=== PATIENT | female | born 1935 | race Caucasian/White ===

== ENCOUNTER 2017-05-31 20:30 | Emergency (ER) | payer MEDICARE, OTHER ==
[2017-05-31 21:47] LABS: Mean Corpuscular Hemoglobin 28.6 pg (26-32); Platelet Count 392 K/mm3 (150-450); Red Blood Count 3.39 M/mm3 (4.1-5.4); Red Cell Distribution Width 15.5 % (11.5-14.0)
[2017-05-31 22:02] LABS: ANION GAP 15.8 MEQ/L (5-15); Carbon Dioxide 23.2 mEq/L (21-32); Potassium 4.6 mEq/L (3.5-5.1)
[2017-05-31 22:04] VITALS: PULSE 100; O2SAT 99
[2017-05-31 22:08] LABS: Platelet Estimate NORMAL (NORMAL); Total Cells Counted 100
[2017-05-31 22:13] LABS: Hypochromia 1+
[2017-05-31 22:14] LABS: ANISOCYTOSIS 1+
[2017-05-31 23:02] LABS: Collection Type CLEAN CATCH; Leukocyte Esterase NEGATIVE (NEGATIVE)
[2017-05-31 23:03] LABS: ADD URINE CULTURE? NO (NO); Bilirubin NEGATIVE (NEGATIVE); Blood NEGATIVE Ery/ul (0-5); COMPLETE URINE MICROSCOPIC? YES; Epithelial Cells RARE /HPF (FEW); Glucose 1000 mg/dL (NEGATIVE); Yeast RARE /HPF (NEGATIVE)
--- NOTE | 2017-05-31 23:07 | ERPHSYRPT ---
- History of Present Illness Time Seen by Provider: 05/31/17 21:30 Source: patient Exam Limitations: clinical condition Patient Subjective Stated Complaint: pt states she had a blood sugar of 400 at home. states she had a steriod injection to her lt knee today with dr bonilla Triage Nursing Assessment: pt alert and oriented, answers questions approp. pt very [place]. pt ambultory with rolling walker. slin pink warm and dry. respirations nonlabored with lungs cta. Physician History: PATIENT WITH A HISTORY OF TYPE 2 DIABETES, CORONARY ARTERY DISEASE, AND HYPERTENSION, UNDER WENT A STEROID INJECTION TO HER LEFT KNEE TODAY AND COMPLAINS OF ELEVETED BLOOD SUGAR 466. DENIES NAUSEA, EMESIS, DIARRHEA, CHEST PAIN OR DYSPNEA. Timing/Duration: today Associated Symptoms: denies symptoms Allergies/Adverse Reactions: dicyclomine [Dicyclomine] Allergy (Intermediate, Verified 12/14/15 01:23) NAUSEA, STOMACH PAIN Sulfa (Sulfonamide Antibiotics) [Sulfa(Sulfonamide Antibiotics)] Allergy ( Unknown, Verified 12/14/15 01:23) Wdpnrad-Ihe-Oah Reductase Inhibitor Allergy (Verified 12/14/15 01:23) Home Medications: Amitriptyline HCl 25 mg [Elavil 25 mg] 25 mg PO HS 12/28/11 [History] Diltiazem HCl 300 mg [Cardizem CD 300 MG] 300 mg PO DAILY 12/28/11 [ History] Glimepiride 2 mg [Amaryl 2 MG] 2 mg PO DAILY 12/28/11 [History] Isosorbide Mononitrate [Imdur] 120 mg PO DAILY 12/28/11 [History] Loratadine 10 mg [Claritin 10 mg] 10 mg PO DAILY 12/28/11 [History] Multivitamin [Multiple Vitamins Daily] 1 tab PO DAILY 12/28/11 [History] Nitroglycerin 0.4 mg Tablet [Nitrostat 0.4 MG Tablet] 0.4 mg SL UD [History] [place]-3 Fatty Acids/Fish Oil [Fish Oil 1,000 mg Capsule] 1,000 mg PO DAILY 12/28/11 [History] Vits A,C,E/Lutein/Minerals [I-Maria R Tablet] 1 each PO DAILY 12/28/11 [History] Aspirin EC 81 mg [Ecotrin 81 mg] 81 tab PO UD 09/09/12 [History] Calcium Carbonate/Vitamin D3 [Calcium 600-Vit D3 200 Tablet] 600 tab PO BID [History] Cranberry Fruit [Cranberry] 450 cap PO DAILY 09/09/12 [History] Cyanocobalamin (Vitamin B-12) [Vitamin B-12] 1,000 tab PO DAILY 09/09/12 [ History] Docusate Sodium [Colace] 50 cap PO DAILY 09/09/12 [History] Esomeprazole Magnesium [Nexium] 40 cap PO DAILY 09/09/12 [History] Green Tea Extract [Green Tea-70] 500 cap PO BID 09/09/12 [History] Nitroglycerin [Nitrolingual] 1 spray SL UD PRN 09/09/12 [History] Plant Stanol Hannah [Cholest Off] 450 tab PO BID 09/09/12 [History] Estradiol [Estrace] 42.5 gm VG UD 06/06/13 [History] Mirabegron [Myrbetriq] 50 mg PO DAILY 06/01/14 [History] Metoprolol Tartrate 25 mg [Lopressor 25MG Tab] 25 mg PO BID 12/14/15 [ History] Hx Tetanus, Diphtheria Vaccination/Date Given: No Hx Influenza Vaccination/Date Given: Yes Hx Pneumococcal Vaccination/Date Given: No Immunizations Up to Date: Yes - Review of Systems Constitutional: No Fever, No Chills Eyes: No Symptoms Ears, Nose, & Throat: No Symptoms Respiratory: No Symptoms, No Cough, No Dyspnea Cardiac: No Symptoms, No Chest Pain, No Edema, No Syncope Abdominal/Gastrointestinal: No Symptoms, No Abdominal Pain, No Nausea, No Vomiting, No Diarrhea Genitourinary Symptoms: No Symptoms, No Dysuria Musculoskeletal: No Symptoms, No Back Pain, No Neck Pain Skin: No Rash Neurological: No Dizziness, No Focal Weakness, No Sensory Changes Psychological: No Symptoms Endocrine: No Symptoms All Other Systems: Reviewed and Negative - Past Medical History Pertinent Past Medical History: Yes Neurological History: No Pertinent History ENT History: Cataracts, Macular Degeneration Cardiac History: Angina, High Cholesterol Respiratory History: No Pertinent History Endocrine Medical History: Diabetes Type II Musculoskeletal History: Other GI Medical History: Irritable Bowel History: No Pertinent History Psycho-Social History: Depression Female Reproductive Disorders: No Pertinent History Other Medical History: hearing loss wears hearing aides, rib fx - Past Surgical History Past Surgical History: Yes Neuro Surgical History: No Pertinent History Cardiac: No Pertinent History Respiratory: No Pertinent History Gastrointestinal: Cholecystectomy, Exploratory Laparoscopy Genitourinary: No Pertinent History Musculoskeletal: Orthopedic Surgery, Other Female Surgical History: Tubal Ligation Other Surgical History: Surgery to left pinky finger-russ insertion. bladder tie up, hx of L hip fx repair - Social History Smoking Status: Never smoker Exposure to second hand smoke: No Drug Use: none Patient Lives Alone: Yes Significant Family History: no pertinent family hx - Female History Hx Now: No - Nursing Vital Signs Nursing Vital Signs: Initial Vital Signs Temperature 98.0 F 05/31/17 21:01 Pulse Rate 108 H 05/31/17 21:01 Respiratory Rate 18 05/31/17 21:01 Blood Pressure 134/89 05/31/17 21:01 O2 Sat by Pulse Oximetry 98 05/31/17 21:01 Pain Scale Pain Intensity 0 - Physical Exam General Appearance: no apparent distress, alert Eye Exam: PERRL/EOMI, eyes nml inspection Ears, Nose, Throat Exam: normal ENT inspection, TMs normal, pharynx normal, moist mucous membranes Neck Exam: normal inspection, non-tender, supple, full range of motion Respiratory Exam: normal breath sounds, lungs clear, No respiratory distress Cardiovascular Exam: regular rate/rhythm, normal heart sounds, normal peripheral pulses Gastrointestinal/Abdomen Exam: soft, normal bowel sounds, No tenderness, No mass Back Exam: normal inspection, normal range of motion, No CVA tenderness, No vertebral tenderness Extremity Exam: normal inspection, normal range of motion, pelvis stable, other (LEFT HIP LATERAL ASPECT SANTI INTACT PREVIOUS HIP SURGERY) Neurologic Exam: alert, oriented x 3, cooperative, normal mood/affect, nml cerebellar function, nml station & gait, sensation nml, No motor deficits Skin Exam: normal color, warm, dry, No rash Lymphatic Exam: No adenopathy SpO2: 99 Oxygen Delivery: Room Air Ordered Tests: Active Orders 24 hr Category Date Time Status ACCUCHECK [Accucheck] STAT Care 05/31/17 21:02 Active BMP Stat Lab 05/31/17 21:44 Completed CBC W DIFF Stat Lab 05/31/17 21:44 Completed Manual Differential NC Stat Lab 05/31/17 21:44 Completed UA W/RFX UR CULTURE Stat Lab 05/31/17 22:52 Received Lab/Rad Data: Laboratory Result Diagrams 05/31/17 21:44 05/31/17 21:44 Laboratory Results 05/31/17 05/31/17 Range/Units 21:44 21:44 WBC 3.0 L (4.0-10.5) K/mm3 RBC 3.39 L (4.1-5.4) M/mm3 Hgb 9.7 L (12.0-16.0) gm/dl Hct 31.2 L (35-47) % MCV 92.0 (78-100) fl MCH 28.6 (26-32) pg MCHC 31.1 L (32-36) g/dl RDW 15.5 H (11.5-14.0) % Plt Count 392 (150-450) K/mm3 MPV 9.0 (6-9.5) fl Segmented Neutrophils 74 H (36.0-66.0) % Lymphocytes (Manual) 25 (24-44) % Monocytes (Manual) 1 (0.0-12.0) % Differential Comment ABNORMAL Platelet Estimate NORMAL (NORMAL) Hypochromasia 1+ Anisocytosis 1+ Sodium 135 L (136-145) mEq/L Potassium 4.6 (3.5-5.1) mEq/L Chloride 101 (98-107) mEq/L Carbon Dioxide 23.2 (21-32) mEq/L Anion Gap 15.8 H (5-15) MEQ/L BUN 22 H (9-20) mg/dL Creatinine 1.04 (0.55-1.30) mg/dl Estimated GFR 54 ML/MIN Glucose 256 H (70-110) MG/DL Calcium 8.8 (8.5-10.1) mg/dL - Progress Progress Note: 05/31/17 23:07 ACCUCHECK 266 UPON ARRIVAL Counseled pt/family regarding: lab results, diagnosis, need for follow-up - Departure Time of Disposition: 23:10 Departure Disposition: Home Clinical Impression: HYPERGLYCEMIA Condition: Stable Critical Care Time: No Referrals: TONI HARRIS [Primary Care Provider] - Additional Instructions: CONTINUE ALL CURRENT MEDICATIONS. FOLLOWUP WITH YOUR PRIMARY CARE PHYSICIAN THIS WEEK. CONTINUE BLOOD GLUCOSE CHECK NEEDED.
[2017-05-31 23:30] VITALS: BP 144/78
== END 2017-05-31 23:31 | disposition home or self-care (01) ==
LOC: ED 20:30
DX: R73.9 Hyperglycemia, unspecified (principal); I25.10 Atherosclerotic heart disease of native coronary artery without angina pectoris; I10 Essential (primary) hypertension; Z79.899 Other long term (current) drug therapy; Z79.84 Long term (current) use of oral hypoglycemic drugs
CPT/HCPCS: 36415; 80048; 81000; 82962; 85025; 99283

== ENCOUNTER 2019-07-29 15:11 | Observation (INO) | payer MEDICARE ==
[2019-07-29] MEDS ORDERED: Cardizem IV 50 MG/10 ML IV SCH (15:30)
[2019-07-29] MEDS ORDERED: CARDIZEM DRIP 100 MG/100 ML D5W 100 ML IV SCH (15:45)
--- NOTE | 2019-07-29 16:18 | XRAY ---
Indication: Atrial fibrillation. Comparison: 2017. Portable chest remains hyperinflated. No focal infiltrate, consolidation, or large effusion. Heart is within normal limits for AP portable technique. Bony thorax intact again with mild osteopenia and degenerative changes. Impression: Nonacute hyperinflated chest.
[2019-07-29] MEDS ORDERED: Sodium Chloride 0.9% 1000 ML 1,000 ML ONE (16:26)
[2019-07-29 16:41] LABS: Hematocrit 36.3 % (35-47); Hemoglobin 11.7 gm/dl (12.0-16.0); Mean Cell Volume 95.5 fl (78-100); Mean Corpuscular Hemoglobin 30.8 pg (26-32); Mean Corpuscular Hgb Concent. 32.2 g/dl (32-36); Mean Platelet Volume 10.9 fl (7.5-11.0); Platelet Count 249 K/mm3 (150-450); Red Cell Distribution Width 14.5 % (11.5-14.0); White Blood Count 7.8 K/mm3 (4.0-10.5)
[2019-07-29 17:22] LABS: ALBUMIN 4.4 g/dL (3.5-5.0); ALKALINE PHOSPHATASE 54 U/L (38-126); ANION GAP 17.7 MEQ/L (5-15); BLOOD UREA NITROGEN 41 mg/dL (7-17); CHLORIDE 94 mmol/L (98-107); Calcium 9.8 mg/dL (8.4-10.2); Carbon Dioxide 29 mmol/L (22-30); Creatinine 1 0.98 mg/dL (0.52-1.04); Glucose 371 mg/dL (74-106); Potassium 4.3 mmol/L (3.5-5.1); SGOT/AST 22 U/L (14-36); SGPT/ALT 18 U/L (0-35); SODIUM 137 mmol/L (137-145); TROPONIN < 0.012 ng/mL (0.000-0.034); TSH, 3RD Generation 0.853 mIU/L (0.47-4.68); Total Protein 7.7 g/dL (6.3-8.2)
[2019-07-29 18:17] LABS: Appearance CLEAR (CLEAR); Bilirubin NEGATIVE (NEGATIVE); Blood NEGATIVE Ery/ul (0-5); Glucose >=500 mg/dL (NEGATIVE); Ketones NEGATIVE (NEGATIVE); Leukocyte Esterase NEGATIVE (NEGATIVE); Mucus SLIGHT /HPF (NEGATIVE); Nitrite NEGATIVE (NEGATIVE); Protein,Urine Dip NEGATIVE (Negative); Specific Gravity 1.006 (1.005-1.025); Urobilinogen NEGATIVE mg/dL (0-1)
[2019-07-29] MEDS ORDERED: Glucophage 500 MG PO ONE (18:41)
[2019-07-29] MEDS ORDERED: Amaryl 2 MG PO ONE (18:41)
[2019-07-29] MEDS ORDERED: Sodium Chloride 0.9% 1000 ML 1,000 ML IV SCH (18:45)
[2019-07-29] MEDS: TYLENOL 325 MG PO PRN (21:20)
[2019-07-29] MEDS: XARELTO 10 MG TABLET PO SCH (21:20)
[2019-07-29] MEDS: Lopressor 50 MG PO SCH (21:21)
[2019-07-29] MEDS ORDERED: XARELTO 10 MG TABLET PO SCH (22:00)
[2019-07-30] MEDS ORDERED: NEURONTIN 300 MG PO ONE (00:38)
[2019-07-30] MEDS ORDERED: Nitrostat 0.4 MG Tablet SL PRN (08:31)
[2019-07-30] MEDS: Glucophage 500 MG PO SCH ×2 (09:03→17:28)
[2019-07-30] MEDS: Amaryl 2 MG PO SCH ×2 (09:04→17:28)
[2019-07-30 09:23] LABS: ANION GAP 9.6 MEQ/L (5-15); BLOOD UREA NITROGEN 36 mg/dL (7-17); CHLORIDE 100 mmol/L (98-107); Calcium 9.1 mg/dL (8.4-10.2); Carbon Dioxide 33 mmol/L (22-30); Creatinine 1 0.93 mg/dL (0.52-1.04); Glucose 163 mg/dL (74-106); Potassium 4.3 mmol/L (3.5-5.1); SODIUM 138 mmol/L (137-145)
--- NOTE | 2019-07-30 09:27 | XRAY ---
Indication: Right leg tenderness and edema. Two-dimensional sonogram and color Doppler imaging of the major venous vessels of the right leg was performed. Comparison: None No thrombus seen in the examined deep venous vessels of the right leg including greater saphenous vein. Veins demonstrate normal compressibility. Venous waveforms are normal with and without augmentation. Impression: Right leg negative for DVT.
[2019-07-30 09:35] LABS: Absolute Neutrophil Ct (ANC) 4.12 (1.4-6.9); BASOPHIL % 0.8 % (0.0-0.4); Basophil (Absolute #) 0.05 (0-0.4); Eosinophil % 3.7 % (0.00-5.0); Eosinophil (Absolute #) 0.24 (0-0.5); Hemoglobin 11.2 gm/dl (12.0-16.0); Lymphocyte (Absolute #) 1.68 (1.0-4.6); Lymphocytes % 25.6 % (24.0-44.0); Mean Cell Volume 96.2 fl (78-100); Mean Corpuscular Hemoglobin 30.8 pg (26-32); Mean Platelet Volume 10.6 fl (7.5-11.0); Monocyte (Absolute #) 0.48 (0.0-1.3); Monocytes % 7.3 % (0.0-12.0); Neutrophil % 62.6 % (36.0-66.0); Platelet Count 237 K/mm3 (150-450); Red Blood Count 3.64 M/mm3 (4.1-5.4); Red Cell Distribution Width 14.7 % (11.5-14.0); White Blood Count 6.6 K/mm3 (4.0-10.5)
[2019-07-30] MEDS ORDERED: NON-FORMULARY ITEM (Dicyclomine Hcl [Dicyclomine Hcl] 10 MG) PO SCH (10:00)
[2019-07-30] MEDS ORDERED: XARELTO 10 MG TABLET PO SCH (10:00)
[2019-07-30] MEDS ORDERED: Lasix 40 MG PO SCH (10:00)
[2019-07-30] MEDS ORDERED: NON-FORMULARY ITEM (Buspirone Hcl [Buspar] 10 MG) PO SCH (10:00)
[2019-07-30] MEDS ORDERED: BENTYL 20 MG PO SCH (10:00)
[2019-07-30] MEDS: Zestril 5 MG PO SCH (10:09)
[2019-07-30] MEDS: MAG-OX 400 PO SCH (10:09)
[2019-07-30] MEDS: BUSPAR 5 MG PO SCH (10:09)
[2019-07-30] MEDS: Lopressor 50 MG PO SCH (10:10)
[2019-07-30] MEDS: CLARITIN 10 MG PO SCH (10:10)
[2019-07-30] MEDS: Klor Con 10 MEQ PO SCH (10:10)
--- NOTE | 2019-07-30 11:53 | PCM.DS ---
Discharge Summary Date of Admission: 07/29/19 15:13 Date of Discharge: 07/30/19 Admitting Physician: VERONICA PINEDO MD Consults: Discussed case with Dr Randolph Primary Care Provider: TONI HARRIS Allergies Allergies dicyclomine [Dicyclomine] Allergy (Intermediate, Verified 12/14/15 01:23) NAUSEA, STOMACH PAIN Sulfa (Sulfonamide Antibiotics) [Sulfa(Sulfonamide Antibiotics)] Allergy ( Unknown, Verified 12/14/15 01:23) Vwukupx-Yas-Yya Reductase Inhibitor Allergy (Verified 12/14/15 01:23) Hospital Summary - Hospital Course Hospital Course: 84 yr old female directly admitted to hospital from clinic because of afib with RVR. Patient was being seen in clinic for routine follow up for diabetes htn and lower leg swelling. Patient was admitted to ICU so she could be started on cardizem drip to help control her rate. 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 Patient's lopressor was increased and patient was continued on cardizem drip for about 4-5 hours. Patient also had labs done and cxr to evaluate for potential cause of afib with RVR. Patient's was started on cardizem and when rate was wnl cardizem was discontinued. Patient did have some neuropathic pain she was complaining of overnight so she was started on gabapentin which appeared to help. Patient was complaining of R lower extremity pain this am so US for dvt was ordered which was neg. - Vitals & Intake/Output Vital Signs: Vital Signs Temperature 97.9 F 07/30/19 08:00 Pulse Rate 63 07/30/19 08:00 Respiratory Rate 14 07/30/19 08:00 Blood Pressure 115/60 07/30/19 08:00 O2 Sat by Pulse Oximetry 95 07/30/19 08:00 Intake & Output: Intake & Output 07/27/19 07/28/19 07/29/19 07/30/19 11:59 11:59 11:59 11:59 Intake Total 1830 Balance 1830 Weight 72.2 kg - Lab Result Diagrams: 07/30/19 09:03 07/30/19 09:03 Lab Results-Last 24 Hrs: Accuchecks Accucheck Value: 131 Accucheck Value: 272 Lab Results-Last 24 Hours 07/29/19 07/29/19 07/29/19 Range/Units 16:20 16:20 18:15 WBC 7.8 (4.0-10.5) K/mm3 RBC 3.80 L (4.1-5.4) M/mm3 Hgb 11.7 L (12.0-16.0) gm/dl Hct 36.3 (35-47) % MCV 95.5 (78-100) fl MCH 30.8 (26-32) pg MCHC 32.2 (32-36) g/dl RDW 14.5 H (11.5-14.0) % Plt Count 249 (150-450) K/mm3 MPV 10.9 (7.5-11.0) fl Gran % (36.0-66.0) % Eos # (Auto) (0-0.5) Absolute Lymphs (auto) (1.0-4.6) Absolute Monos (auto) (0.0-1.3) Lymphocytes % (24.0-44.0) % Monocytes % (0.0-12.0) % Eosinophils % (0.00-5.0) % Basophils % (0.0-0.4) % Absolute Granulocytes (1.4-6.9) Basophils # (0-0.4) Sodium 137 (137-145) mmol/L Potassium 4.3 (3.5-5.1) mmol/L Chloride 94 L (98-107) mmol/L Carbon Dioxide 29 (22-30) mmol/L Anion Gap 17.7 H (5-15) MEQ/L BUN 41 H (7-17) mg/dL Creatinine 0.98 (0.52-1.04) mg/dL Estimated GFR 57.5 ML/MIN Glucose 371 H (74-106) mg/dL Hemoglobin A1c (4.5-6.0) % Calcium 9.8 (8.4-10.2) mg/dL Magnesium 2.0 (1.6-2.3) mg/dL Total Bilirubin 0.40 (0.2-1.3) mg/dL AST 22 (14-36) U/L ALT 18 (0-35) U/L Alkaline Phosphatase 54 (38-126) U/L Troponin I < 0.012 (0.000-0.034) ng/mL NT-Pro-B Natriuret Pep (0-1800) pg/mL Serum Total Protein 7.7 (6.3-8.2) g/dL Albumin 4.4 (3.5-5.0) g/dL TSH 3rd Generation 0.853 (0.47-4.68) mIU/L Urine Color YELLOW (YELLOW) Urine Appearance CLEAR (CLEAR) Urine pH 7.0 (5-6) Ur Specific [place] 1.006 (1.005-1.025) Urine Protein NEGATIVE (Negative) Urine Ketones NEGATIVE (NEGATIVE) Urine Blood NEGATIVE (0-5) Jayme/ul Urine Nitrite NEGATIVE (NEGATIVE) Urine Bilirubin NEGATIVE (NEGATIVE) Urine Urobilinogen NEGATIVE (0-1) mg/dL Ur Leukocyte Esterase NEGATIVE (NEGATIVE) Urine WBC (Auto) 3-5 (0-5) /HPF Urine RBC (Auto) NONE (0-2) /HPF U Epithel Cells (Auto) NONE (FEW) /HPF Urine Bacteria (Auto) NONE (NEGATIVE) /HPF Urine Mucus (Auto) SLIGHT (NEGATIVE) /HPF Urine Culture Reflexed ORDERED SEPARATELY (NO) Urine Glucose >=500 (NEGATIVE) mg/dL 07/29/19 07/29/19 07/29/19 Range/Units 22:58 Unknown Unknown WBC (4.0-10.5) K/mm3 RBC (4.1-5.4) M/mm3 Hgb (12.0-16.0) gm/dl Hct (35-47) % MCV (78-100) fl MCH (26-32) pg MCHC (32-36) g/dl RDW (11.5-14.0) % Plt Count (150-450) K/mm3 MPV (7.5-11.0) fl Gran % (36.0-66.0) % Eos # (Auto) (0-0.5) Absolute Lymphs (auto) (1.0-4.6) Absolute Monos (auto) (0.0-1.3) Lymphocytes % (24.0-44.0) % Monocytes % (0.0-12.0) % Eosinophils % (0.00-5.0) % Basophils % (0.0-0.4) % Absolute Granulocytes (1.4-6.9) Basophils # (0-0.4) Sodium (137-145) mmol/L Potassium (3.5-5.1) mmol/L Chloride (98-107) mmol/L Carbon Dioxide (22-30) mmol/L Anion Gap (5-15) MEQ/L BUN (7-17) mg/dL Creatinine (0.52-1.04) mg/dL Estimated GFR ML/MIN Glucose (74-106) mg/dL Hemoglobin A1c 9.74 H (4.5-6.0) % Calcium (8.4-10.2) mg/dL Magnesium (1.6-2.3) mg/dL Total Bilirubin (0.2-1.3) mg/dL AST (14-36) U/L ALT (0-35) U/L Alkaline Phosphatase (38-126) U/L Troponin I < 0.012 (0.000-0.034) ng/mL NT-Pro-B Natriuret Pep 1110 (0-1800) pg/mL Serum Total Protein (6.3-8.2) g/dL Albumin (3.5-5.0) g/dL TSH 3rd Generation (0.47-4.68) mIU/L Urine Color (YELLOW) Urine Appearance (CLEAR) Urine pH (5-6) Ur Specific [place] (1.005-1.025) Urine Protein (Negative) Urine Ketones (NEGATIVE) Urine Blood (0-5) Jayme/ul Urine Nitrite (NEGATIVE) Urine Bilirubin (NEGATIVE) Urine Urobilinogen (0-1) mg/dL Ur Leukocyte Esterase (NEGATIVE) Urine WBC (Auto) (0-5) /HPF Urine RBC (Auto) (0-2) /HPF U Epithel Cells (Auto) (FEW) /HPF Urine Bacteria (Auto) (NEGATIVE) /HPF Urine Mucus (Auto) (NEGATIVE) /HPF Urine Culture Reflexed (NO) Urine Glucose (NEGATIVE) mg/dL 07/30/19 07/30/19 Range/Units 09:03 09:03 WBC 6.6 (4.0-10.5) K/mm3 RBC 3.64 L (4.1-5.4) M/mm3 Hgb 11.2 L (12.0-16.0) gm/dl Hct 35.0 (35-47) % MCV 96.2 (78-100) fl MCH 30.8 (26-32) pg MCHC 32.0 (32-36) g/dl RDW 14.7 H (11.5-14.0) % Plt Count 237 (150-450) K/mm3 MPV 10.6 (7.5-11.0) fl Gran % 62.6 (36.0-66.0) % Eos # (Auto) 0.24 (0-0.5) Absolute Lymphs (auto) 1.68 (1.0-4.6) Absolute Monos (auto) 0.48 (0.0-1.3) Lymphocytes % 25.6 (24.0-44.0) % Monocytes % 7.3 (0.0-12.0) % Eosinophils % 3.7 (0.00-5.0) % Basophils % 0.8 (0.0-0.4) % Absolute Granulocytes 4.12 (1.4-6.9) Basophils # 0.05 (0-0.4) Sodium 138 (137-145) mmol/L Potassium 4.3 (3.5-5.1) mmol/L Chloride 100 (98-107) mmol/L Carbon Dioxide 33 H (22-30) mmol/L Anion Gap 9.6 (5-15) MEQ/L BUN 36 H (7-17) mg/dL Creatinine 0.93 (0.52-1.04) mg/dL Estimated GFR > 60.0 ML/MIN Glucose 163 H (74-106) mg/dL Hemoglobin A1c (4.5-6.0) % Calcium 9.1 (8.4-10.2) mg/dL Magnesium (1.6-2.3) mg/dL Total Bilirubin (0.2-1.3) mg/dL AST (14-36) U/L ALT (0-35) U/L Alkaline Phosphatase (38-126) U/L Troponin I (0.000-0.034) ng/mL NT-Pro-B Natriuret Pep (0-1800) pg/mL Serum Total Protein (6.3-8.2) g/dL Albumin (3.5-5.0) g/dL TSH 3rd Generation (0.47-4.68) mIU/L Urine Color (YELLOW) Urine Appearance (CLEAR) Urine pH (5-6) Ur Specific [place] (1.005-1.025) Urine Protein (Negative) Urine Ketones (NEGATIVE) Urine Blood (0-5) Jayme/ul Urine Nitrite (NEGATIVE) Urine Bilirubin (NEGATIVE) Urine Urobilinogen (0-1) mg/dL Ur Leukocyte Esterase (NEGATIVE) Urine WBC (Auto) (0-5) /HPF Urine RBC (Auto) (0-2) /HPF U Epithel Cells (Auto) (FEW) /HPF Urine Bacteria (Auto) (NEGATIVE) /HPF Urine Mucus (Auto) (NEGATIVE) /HPF Urine Culture Reflexed (NO) Urine Glucose (NEGATIVE) mg/dL Micro Results-Entire Visit: Accuchecks Accucheck Value: 131 Accucheck Value: 272 - Radiology Exams Ordered Rad Exams-Entire Visit: Radiology Procedures Category Date Time Status CHEST 1 VIEW (PORTABLE) Stat Exams 07/29/19 15:45 Completed ECHO W/2D AND DOPPLER [US] Stat Exams 07/30/19 15:45 Taken VENOUS UNILAT/LIMITED EXTREMIT [US] Urgent Exams 07/30/19 09:11 Completed - Procedures and Test Procedures and Tests throughout Hospitalization: Therapy Orders & Screens 07/30/19 07:38 EKG ROUTINE Comment: Diagnosis: A-FIB WITH RVR Discharge Exam General Appearance: mild distress, anxiety Neurologic Exam: alert, cooperative, normal mood/affect, other (Hard of hearing) Eye Exam: eyes nml inspection, No scleral icterus Ears, Nose, Throat Exam: other (Dry lips) Neck Exam: normal inspection Respiratory Exam: normal breath sounds, lungs clear, No diminished breath sounds , No crackles/rales, No rhonchi, No wheezing Cardiovascular Exam: irregular, No murmur, No friction rub, No gallop Gastrointestinal/Abdomen Exam: soft, normal bowel sounds, distention, No tenderness, No guarding Extremity Exam: pedal edema (With some erythema with skin intact), swelling, tenderness (R sided lower leg tenderness with palpation) Skin Exam: normal color, No warm, No dry, No rash Final Diagnosis/Problem List - Final Discharge Diagnosis/Problem (1) Atrial fibrillation with RVR Current Visit: Yes Status: Acute Assessment & Plan: 84 yr old female with afib with RVR that corrected with cardizem drip and lopressor. Patient was on Xarelto at baseline. Echo results still pending. Labs UA and cxr were neg for any infection or potential cause of the afib with RVR. Patient will go home on holter monitor lopressor 100mg BID. 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 Patient will continue on Xarelto. Code(s): I48.91 - UNSPECIFIED ATRIAL FIBRILLATION (2) Angina at rest Current Visit: Yes Status: Acute Assessment & Plan: Patient was complaining of intermittent chest discomfort. She is on nitro nasal spray for her chest pressure/discomfort. Will have patient continue with this medication as needed. Code(s): I20.8 - OTHER FORMS OF ANGINA PECTORIS (3) Diabetes Current Visit: Yes Status: Acute Assessment & Plan: Patient's BS did not appear well controlled in hospital. Trops were neg x2 and EKG was neg for acute ACS. She had not gotten routine outpatient labs. Her hgba1c is more elevated. Unsure of any recent steroid use. Will consider increasing her metformin if her BS continue to remain elevated. Code(s): E11.9 - TYPE 2 DIABETES MELLITUS WITHOUT COMPLICATIONS (4) HTN (hypertension) Current Visit: No Status: Acute Assessment & Plan: Due to medications patient was given in hospital for afib with RVR, patient's bp was not as elevated as it normally is. Patient has had some recent medication changes for her bp to try to eliminate some lower leg swelling. Will have patient continue with lisinopril and higher dose of lopressor at home. Patient will not have Norvasc at home. Code(s): I10 - ESSENTIAL (PRIMARY) HYPERTENSION (5) Neuropathy Current Visit: Yes Status: Acute Assessment & Plan: Patient was reporting pins and needle pain in hands and feet likely caused by diabetic neuropathy. Will have patient take gabapentin at night upon discharge as this seemed to give her some relief. Code(s): G62.9 - POLYNEUROPATHY, UNSPECIFIED (6) Swelling of lower leg Current Visit: Yes Status: Acute Assessment & Plan: Patient has had chronic lower leg swelling and multiple cases of cellulitis. US of lower leg was neg for DVT. Patient is supposed to have zip compression socks which she has not been able to get yet. Code(s): M79.89 - OTHER SPECIFIED SOFT TISSUE DISORDERS - Discharge Disposition: HOME HEALTH SERVICE Condition: Fair Prescriptions: New Metoprolol Tartrate 50 mg [Lopressor 50 MG] 100 mg PO BID #60 tablet Continue Buspirone HCl [Buspar] 10 mg PO BID Metformin HCl 500 mg [Glucophage 500 MG] 500 mg PO BIDWM Loratadine 10 mg [Claritin 10 mg] 10 mg PO DAILY Magnesium Oxide 400 mg [Mag-Ox 400] 400 mg PO DAILY Potassium Chloride 10 meq PO DAILY Metolazone 2.5 mg [Zaroxolyn 2.5 MG] 2.5 mg PO DAILY Rivaroxaban 10 mg Tablet [Xarelto 10 mg Tablet] 20 mg PO EVENING MEAL Lisinopril 5 mg [Zestril 5 MG] 5 mg PO DAILY Glimepiride 2 mg [Amaryl 2 MG] 2 mg PO BID Dicyclomine HCl 10 mg PO QIDPRN PRN PRN Reason: Indigestion Nitroglycerin 0.4 mg Tablet [Nitrostat 0.4 MG Tablet] 0.4 mg SL Q5MIN PRN MR X 3 PRN PRN Reason: cp Discontinued Tamsulosin HCl 0.4 mg [Flomax 0.4 MG] 0.4 mg PO DAILY Amlodipine Besylate 5 mg PO DAILY Additional Instructions: [facility] WILL CALL YOU TO ARRANGE YOUR FIRST VISIT. YOU MAY REACH THEM AT [phone]. [facility] WILL CONTINUE TO FOLLOW YOU ON DISCHARGE WELL. Follow up with: DANIEL BLUE [COURTESY STAFF] - 08/05/19 3:00 pm TONI HARRIS [Primary Care Provider] - 1 Week
[2019-07-30] MEDS ORDERED: Glucophage 500 MG PO ONE (18:41)
[2019-07-30] MEDS ORDERED: Lopressor 50 MG PO SCH (22:00)
[2019-07-30] MEDS ORDERED: NEURONTIN 300 MG PO SCH (22:00)
[2019-07-30] MEDS: XARELTO 10 MG TABLET PO SCH (22:08)
[2019-07-31 07:23] VITALS: BP 110/58; O2SAT 95
[2019-07-31] MEDS: TYLENOL 325 MG PO PRN (08:03)
[2019-07-31] MEDS: Glucophage 500 MG PO SCH (08:03)
[2019-07-31] MEDS: Amaryl 2 MG PO SCH (08:03)
[2019-07-31] MEDS: BUSPAR 5 MG PO SCH (09:53)
[2019-07-31] MEDS: MAG-OX 400 PO SCH (09:53)
[2019-07-31] MEDS: Klor Con 10 MEQ PO SCH (09:53)
[2019-07-31] MEDS: CLARITIN 10 MG PO SCH (09:53)
[2019-07-31] MEDS ORDERED: Lopressor 25MG Tab PO SCH (10:00)
[2019-07-31] MEDS ORDERED: Lopressor 50 MG PO SCH (10:00)
[2019-07-31] MEDS ORDERED: Lopressor 25MG Tab PO ONE (11:00)
[2019-07-31] MEDS ORDERED: Lasix 40 MG PO ONE (11:00)
[2019-07-31] MEDS: Zestril 5 MG PO SCH (11:01)
[2019-07-31] MEDS ORDERED: IMODIUM 2 MG PO ONE (11:38)
[2019-07-31 12:28] VITALS: PULSE 82
== END 2019-07-31 13:15 | disposition home health service (06) ==
LOC: ICU 15:13
PROVIDERS: ADMIT Family Medicine; ATTEND Family Medicine
DX: I48.91 Unspecified atrial fibrillation (principal); E11.9 Type 2 diabetes mellitus without complications; I10 Essential (primary) hypertension; M79.89 Other specified soft tissue disorders; I20.9 Angina pectoris, unspecified; G62.9 Polyneuropathy, unspecified; Z79.899 Other long term (current) drug therapy
CPT/HCPCS: 36415; 71045; 80048; 80053; 81001; 82962; 83036; 83735; 83880; 84443; 84484; 85025; 85027; 87077; 87086; 87186; 93005; 93268; 93306; 93971; G0378; A9270-GY

== ENCOUNTER 2019-08-06 13:11 | Emergency (ER) | payer MEDICARE ==
[2019-08-06] MEDS ORDERED: BABY ASPIRIN 81 MG CHEW PO ONE (13:34)
--- NOTE | 2019-08-06 13:41 | ERPHSYRPT ---
- History of Present Illness Time Seen by Provider: 08/06/19 13:36 Historian: patient, family Patient Subjective Stated Complaint: pt to ER with complaints of chest pain since this morning. pt has home health nurse and pt took 3 nitro with some relief. pt denies any pain at this moment. 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 Triage Nursing Assessment: pt to ER with complaints of L sided chest pain and L shoulder pain since this morning. pt took 3 nitro. pt denies SOB , nasuea or any other symptoms. Physician History: 84 yo with atrial fib/flutter on xarelto , CAD stenting, HTN, DM presented with CC of left sided chest pain since morning an dhas taken 3 nitros [employer] and is better at present and rates 08/01 . no fever or chills , no SOB. was seen at cardiology office yesterday and is scheduled to have a stress test in 2 weeks Timing/Duration: today Activities at Onset: rest Quality: dullness, pressure, tightness Location: substernal Chest Pain Radiation: arm Severity of Pain-Max: moderate Severity of Pain-Current: none Modifying Factors: Improves With: nitroglycerin Associated Symptoms: denies symptoms Prior Chest Pain/Cardiac Workup: angina Nitro Today/Relief: 0.4 mg x 3 Aspirin Treatment Today: 81 mg x 1 Allergies/Adverse Reactions: dicyclomine [Dicyclomine] Allergy (Intermediate, Verified 08/06/19 13:27) NAUSEA, STOMACH PAIN Sulfa (Sulfonamide Antibiotics) [Sulfa(Sulfonamide Antibiotics)] Allergy ( Unknown, Verified 08/06/19 13:27) [id number] Reductase Inhibitor Allergy (Verified 08/06/19 13:27) Home Medications: Buspirone HCl [Buspar] 10 mg PO BID 07/29/19 [History] Glimepiride 2 mg [Amaryl 2 MG] 2 mg PO BID 07/29/19 [History] Loratadine 10 mg [Claritin 10 mg] 10 mg PO DAILY 07/29/19 [History] Magnesium Oxide 400 mg [Mag-Ox 400] 400 mg PO DAILY 07/29/19 [History] Metformin HCl 500 mg [Glucophage 500 MG] 500 mg PO BIDWM 07/29/19 [History ] Metolazone 2.5 mg [Zaroxolyn 2.5 MG] 2.5 mg PO DAILY 07/29/19 [History] Nitroglycerin 0.4 mg Tablet [Nitrostat 0.4 MG Tablet] 0.4 mg SL Q5MIN PRN MR X 3 PRN 07/29/19 [History] Potassium Chloride 10 meq PO DAILY 07/29/19 [History] Rivaroxaban 10 mg Tablet [Xarelto 10 mg Tablet] 20 mg PO EVENING MEAL 02/08 [History] Metoprolol Tartrate 100 mg PO BID 08/06/19 [History] Solifenacin Succinate 5 mg PO DAILY 08/06/19 [History] Hx Tetanus, Diphtheria Vaccination/Date Given: No Hx Influenza Vaccination/Date Given: Yes Hx Pneumococcal Vaccination/Date Given: Yes Immunizations Up to Date: Yes - Review of Systems Constitutional: No Symptoms Eyes: No Symptoms Ears, Nose, & Throat: No Symptoms Respiratory: No Symptoms Cardiac: Chest Pain, Palpitations Abdominal/Gastrointestinal: No Symptoms Genitourinary Symptoms: No Symptoms Musculoskeletal: No Symptoms Neurological: No Symptoms Psychological: No Symptoms Endocrine: No Symptoms Hematologic/Lymphatic: No Symptoms Immunological/Allergic: No Symptoms - Past Medical History Pertinent Past Medical History: Yes Neurological History: No Pertinent History ENT History: Cataracts, Macular Degeneration Cardiac History: Angina, High Cholesterol Respiratory History: No Pertinent History Endocrine Medical History: Diabetes Type II Musculoskeletal History: Other GI Medical History: Irritable Bowel History: No Pertinent History Psycho-Social History: Depression Female Reproductive Disorders: No Pertinent History Other Medical History: hearing loss wears hearing aides, rib fx - Past Surgical History Past Surgical History: Yes Neuro Surgical History: No Pertinent History Cardiac: No Pertinent History, Cardiac Catheterization Respiratory: No Pertinent History Gastrointestinal: Cholecystectomy, Exploratory Laparoscopy Genitourinary: No Pertinent History Musculoskeletal: Orthopedic Surgery, Other Female Surgical History: Tubal Ligation Other Surgical History: Surgery to left pinky finger-russ insertion. bladder tie up, hx of L hip fx repair - Social History Smoking Status: Never smoker Exposure to second hand smoke: No Drug Use: none Patient Lives Alone: No Significant Family History: no pertinent family hx - Female History Hx Now: No - Nursing Vital Signs Nursing Vital Signs: Initial Vital Signs Temperature 98.2 F 08/06/19 13:15 Pulse Rate 70 01/15/20 13:15 Respiratory Rate 16 08/06/19 13:15 Blood Pressure 133/77 08/06/19 13:15 O2 Sat by Pulse Oximetry 96 08/06/19 13:15 - Physical Exam General Appearance: no apparent distress Eye Exam: PERRL/EOMI Ears, Nose, Throat Exam: normal ENT inspection, pharynx normal Neck Exam: normal inspection, non-tender, supple, full range of motion Respiratory Exam: normal breath sounds, lungs clear, No respiratory distress Cardiovascular Exam: other (irregularly irregular , normal rate ), No tachycardia Gastrointestinal/Abdomen Exam: soft, normal bowel sounds, No tenderness Back Exam: normal inspection, normal range of motion Extremity Exam: normal inspection, pedal edema, swelling, other (chronic stasis ) Neurologic Exam: alert, oriented x 3 Skin Exam: normal color SpO2 Interpretation: normal SpO2: 96 O2 Delivery: Room Air - Course Nursing assessment & vital signs reviewed: Yes EKG Interpreted by Me: RATE ([id number]), NORMAL AXIS, Non-specific ST Changes Ordered Tests: Active Orders 24 hr Category Date Time Status 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 Care 08/06/19 13:35 Active EKG-ER Only STAT Care 08/06/19 13:34 Active IV Insertion STAT Care 08/06/19 13:34 Active CHEST 1 VIEW (PORTABLE) Stat Exams 08/06/19 13:35 Completed CBC W DIFF Stat Lab 08/06/19 13:40 Completed CMP Stat Lab 08/06/19 13:40 Completed NT PRO BNP Stat Lab 08/06/19 13:40 Completed TROPONIN Q3H Lab 08/06/19 13:40 Completed TROPONIN Q3H Lab 08/06/19 16:45 Ordered TROPONIN Q3H Lab 08/06/19 19:45 Ordered TROPONIN Q3H Lab 08/06/19 22:45 Ordered TROPONIN Q3H Lab 08/07/19 01:45 Ordered Medication Summary Discontinued Medications Generic Name Dose Route Start Last Admin Trade Name Freq PRN Reason Stop Dose Admin Aspirin 324 mg 08/06/19 13:34 08/06/19 13:43 Baby Aspirin 81 Mg Chew PO 08/06/19 13:35 243 mg STAT ONE Administration Lab/Rad Data: Laboratory Result Diagrams 08/06/19 13:40 08/06/19 13:40 Laboratory Results 08/06/19 08/06/19 08/06/19 Range/Units 13:40 13:40 13:40 WBC 6.4 (4.0-10.5) K/mm3 RBC 3.43 L (4.1-5.4) M/mm3 Hgb 10.8 L (12.0-16.0) gm/dl Hct 33.0 L (35-47) % MCV 96.2 (78-100) fl MCH 31.5 (26-32) pg MCHC 32.7 (32-36) g/dl RDW 14.3 H (11.5-14.0) % Plt Count 248 (150-450) K/mm3 MPV 10.7 (7.5-11.0) fl Gran % 69.3 H (36.0-66.0) % Eos # (Auto) 0.39 (0-0.5) Absolute Lymphs (auto) 1.21 (1.0-4.6) Absolute Monos (auto) 0.34 (0.0-1.3) Lymphocytes % 19.0 L (24.0-44.0) % Monocytes % 5.3 (0.0-12.0) % Eosinophils % 6.1 H (0.00-5.0) % Basophils % 0.3 (0.0-0.4) % Absolute Granulocytes 4.41 (1.4-6.9) Basophils # 0.02 (0-0.4) Sodium 136 L (137-145) mmol/L Potassium 3.9 (3.5-5.1) mmol/L Chloride 95 L (98-107) mmol/L Carbon Dioxide 28 (22-30) mmol/L Anion Gap 16.7 H (5-15) MEQ/L BUN 37 H (7-17) mg/dL Creatinine 0.96 (0.52-1.04) mg/dL Estimated GFR 58.9 ML/MIN Glucose 378 H (74-106) mg/dL Calcium 8.9 (8.4-10.2) mg/dL Total Bilirubin 0.50 (0.2-1.3) mg/dL AST 20 (14-36) U/L ALT 16 (0-35) U/L Alkaline Phosphatase 53 (38-126) U/L Troponin I < 0.012 (0.000-0.034) ng/mL NT-Pro-B Natriuret Pep 3960 H (0-1800) pg/mL Serum Total Protein 7.4 (6.3-8.2) g/dL Albumin 4.0 (3.5-5.0) g/dL - Progress Progress: improved, re-examined Air Movement: fair Progress Note: 08/06/19 14:46 she has no acute ischemic changes in EKG on arrival, chest pain is improved. no SOB while in here. given aspirin. has negative initial chest pain workup including troponin. has high heart score . [facility] has no beds. d/w at [facility], ER and patient is accepted for transfer. plan d/w patient and family and they are ok with it. Antibiotics given: No Counseled pt/family regarding: lab results, diagnosis, rad results - Departure Departure Disposition: Transfer Clinical Impression: Chest pain, rule out acute myocardial infarction Condition: Stable Critical Care Time: No Referrals: TONI HARRIS [Primary Care Provider] -
[2019-08-06 13:46] LABS: Absolute Neutrophil Ct (ANC) 4.41 (1.4-6.9); BASOPHIL % 0.3 % (0.0-0.4); Basophil (Absolute #) 0.02 (0-0.4); Eosinophil % 6.1 % (0.00-5.0); Eosinophil (Absolute #) 0.39 (0-0.5); Hemoglobin 10.8 gm/dl (12.0-16.0); Lymphocyte (Absolute #) 1.21 (1.0-4.6); Mean Cell Volume 96.2 fl (78-100); Mean Corpuscular Hemoglobin 31.5 pg (26-32); Mean Corpuscular Hgb Concent. 32.7 g/dl (32-36); Mean Platelet Volume 10.7 fl (7.5-11.0); Monocyte (Absolute #) 0.34 (0.0-1.3); Monocytes % 5.3 % (0.0-12.0); Neutrophil % 69.3 % (36.0-66.0); Platelet Count 248 K/mm3 (150-450); Red Blood Count 3.43 M/mm3 (4.1-5.4); Red Cell Distribution Width 14.3 % (11.5-14.0); White Blood Count 6.4 K/mm3 (4.0-10.5)
[2019-08-06 14:08] LABS: ANION GAP 16.7 MEQ/L (5-15); BILIRUBIN,TOTAL 0.5 mg/dL (0.2-1.3); Calcium 8.9 mg/dL (8.4-10.2); Creatinine 1 0.96 mg/dL (0.52-1.04); Potassium 3.9 mmol/L (3.5-5.1); Total Protein 7.4 g/dL (6.3-8.2)
--- NOTE | 2019-08-06 14:31 | XRAY ---
Indication: Chest pain. Comparison: July 29, 2019. Portable chest again hyperinflated with new right middle lobe infiltrate versus atelectasis. Remaining heart and lungs unremarkable.
[2019-08-06 15:13] VITALS: BP 171/87
[2019-08-06 15:18] VITALS: PULSE 69; O2SAT 98
== END 2019-08-06 15:39 | disposition short-term general hospital (02) ==
LOC: ED 13:11
DX: R07.89 Other chest pain (principal); E11.9 Type 2 diabetes mellitus without complications; Z79.4 Long term (current) use of insulin; E78.00 Pure hypercholesterolemia, unspecified; F32.9 Major depressive disorder, single episode, unspecified; Z79.899 Other long term (current) drug therapy; Z79.01 Long term (current) use of anticoagulants; Z86.79 Personal history of other diseases of the circulatory system; I25.810 Atherosclerosis of coronary artery bypass graft(s) without angina pectoris; I10 Essential (primary) hypertension
CPT/HCPCS: 36000; 36415; 71045; 80053; 83880; 84484; 85025; 93005; 93041; 99285; A9270-GY

== ENCOUNTER 2020-04-09 13:13 | Inpatient (IN) | payer MEDICARE ==
[2020-04-09] MEDS ORDERED: Cardizem IV 50 MG/10 ML IV ONE (13:41)
[2020-04-09] MEDS: Cardizem IV 50 MG/10 ML IV ONE ×2 (13:42→13:50)
[2020-04-09] MEDS ORDERED: Lopressor 50 MG PO STA (13:45)
[2020-04-09] MEDS ORDERED: Lopressor 50 MG ONE (13:47)
--- NOTE | 2020-04-09 13:57 | ERPHSYRPT ---
- History of Present Illness Source: patient, other (Grandson) Exam Limitations: other (Extremely hearing impaired) Patient Subjective Stated Complaint: L leg pain/swelling Triage Nursing Assessment: pt to ED c/o L lower leg pain and swelling x 3 days. pt grandson live with pt and he takes care of her. pt leg began to swell and cause pain, ambulates with walker but has been in more pain last 3 days. grandson called PCP and was told to come to ED to rule out blood clot. L leg is red, swollen, and cool. good pedal pulses and cap refil. no known hx dvt. does take Xarelto. rates 10/10 pain. pt has been having to use her arms to move L leg into/out of bed and chairs. Physician History: 85 yo wf w LLE edema/erythema/mild pain x 3 days. Pt denies injury/fever/ho DVT. She is in Afib w mild RVR upon presentation, but pt/grandson unable to confirm h/o Afib. She is on Xaralto and has not taken her Lopressor x2 days. Pt states mild chest pain yesterday but denies dyspnea/PND/orthopnea/cough/N/V/D/melena/hematochezia. Method of Injury: other (No injury) Occurred: days ago (3 days) Quality: constant Severity of Pain-Max: mild Severity of Pain-Current: mild Lower Extremities Pain: leg: left Modifying Factors: Improves With: movement Associated Symptoms: unable to bear weight, No dizzy, No fainted, No seizure, No snapping sensation, No popping sensation Allergies/Adverse Reactions: dicyclomine [Dicyclomine] Allergy (Intermediate, Verified 04/09/20 13:28) NAUSEA, STOMACH PAIN Sulfa (Sulfonamide Antibiotics) [Sulfa(Sulfonamide Antibiotics)] Allergy (Unknown, Verified 04/09/20 13:28) [id number] Reductase Inhibitor Allergy (Verified 04/09/20 13:28) Home Medications: Buspirone HCl [Buspar] 10 mg PO BID 07/29/19 [History] Glimepiride 2 mg [Amaryl 2 MG] 2 mg PO BID 07/29/19 [History] Loratadine 10 mg [Claritin 10 mg] 10 mg PO DAILY 07/29/19 [History] Metformin HCl 500 mg [Glucophage 500 MG] 500 mg PO TID 07/29/19 [History] Nitroglycerin 0.4 mg Tablet [Nitrostat 0.4 MG Tablet] 0.4 mg SL Q5MIN PRN MR X 3 PRN 07/29/19 [History] Rivaroxaban 10 mg Tablet [Xarelto 10 mg Tablet] 20 mg PO EVENING MEAL 07/29/19 [History] Solifenacin Succinate 5 mg PO DAILY 08/06/19 [History] Aspirin EC 81 mg [Ecotrin 81 mg] 81 mg PO DAILY 04/09/20 [History] Cholecalciferol (Vitamin D3) [Vitamin D3] 2,000 iu PO DAILY 04/09/20 [History] Cyanocobalamin 500 Mcg [Vitamin B-12 500 MCG] 1,000 mcg PO DAILY 04/09/20 [History] Ferrous Sulfate 325 mg [Feosol 325 mg] 325 mg PO DAILY 04/09/20 [History] Furosemide 80 mg PO DAILY 04/09/20 [History] Isosorbide Mononitrate 60 mg [Imdur 60MG] 60 mg PO DAILY 04/09/20 [History] Magnesium 250 mg PO DAILY 04/09/20 [History] Metoprolol Tartrate 50 mg PO BID 04/09/20 [History] Multivitamins,Therapeutic Tab* [Theragran Multivitamin] 1 tab PO DAILY 04/09/20 [History] Omeprazole 20 mg PO QAM 04/09/20 [History] Potassium Gluconate 99 mg PO DAILY 04/09/20 [History] Hx Tetanus, Diphtheria Vaccination/Date Given: Yes Hx Influenza Vaccination/Date Given: Yes Hx Pneumococcal Vaccination/Date Given: No Immunizations Up to Date: Yes Travel Risk - International Travel Have you traveled outside of the country in past 3 weeks: No - Coronavirus Screening Are you exhibiting any of the following symptoms?: No Close contact with a COVID-19 positive Pt in past 14-21 Days: No - Review of Systems Constitutional: No Symptoms Eyes: No Symptoms Ears, Nose, & Throat: No Symptoms Respiratory: No Symptoms Cardiac: Chest Pain, Edema, No Palpitations, No Syncope, No Orthopnea, No PND Abdominal/Gastrointestinal: No Symptoms Genitourinary Symptoms: No Symptoms Musculoskeletal: Joint Swelling Skin: Cellulitis Neurological: No Symptoms Psychological: No Symptoms Endocrine: No Symptoms Hematologic/Lymphatic: No Symptoms Immunological/Allergic: No Symptoms - Past Medical History Pertinent Past Medical History: Yes Neurological History: No Pertinent History ENT History: Cataracts, Macular Degeneration Cardiac History: Angina, High Cholesterol Respiratory History: No Pertinent History Endocrine Medical History: Diabetes Type II Musculoskeletal History: Other GI Medical History: Irritable Bowel History: No Pertinent History Psycho-Social History: Depression Female Reproductive Disorders: No Pertinent History Other Medical History: hearing loss wears hearing aides, rib fx - Past Surgical History Past Surgical History: Yes Neuro Surgical History: No Pertinent History Cardiac: No Pertinent History, Cardiac Catheterization Respiratory: No Pertinent History Gastrointestinal: Cholecystectomy, Exploratory Laparoscopy Genitourinary: No Pertinent History Musculoskeletal: Orthopedic Surgery, Other Female Surgical History: Tubal Ligation Other Surgical History: Surgery to left pinky finger-russ insertion. bladder tie up, hx of L hip fx repair. L knee replacement - Social History Smoking Status: Never smoker Exposure to second hand smoke: No Drug Use: none Patient Lives Alone: No (grandosn lives with) Significant Family History: no pertinent family hx - Female History Hx Now: No - Nursing Vital Signs Nursing Vital Signs: Initial Vital Signs Temperature 98.0 F 04/09/20 13:22 Respiratory Rate 19 04/09/20 13:22 Blood Pressure 158/118 04/09/20 13:22 O2 Sat by Pulse Oximetry 98 04/09/20 13:22 Pain Scale Pain Intensity 0 - Physical Exam General Appearance: no apparent distress Eyes, Ears, Nose, Throat Exam: pharynx normal, moist mucous membranes Neck Exam: normal inspection, non-tender, supple, full range of motion, No Brudzinski, No Kernig's Cardiovascular/Respiratory Exam: normal breath sounds, irregularly irregular Gastrointestinal/Abdominal Exam: non-tender, soft, no organomegaly Back Exam: normal inspection, normal range of motion, No CVA tenderness, No vertebral tenderness Hips Exam: bilateral: non-tender, normal inspection, normal range of motion Legs Exam: left leg: swelling (LLE edema/Marked pre-tibial erythema/Good pedal pulse B) Knees Exam: bilateral knee: non-tender, normal inspection (L knee replacement scar), normal range of motion Ankle Exam: bilateral ankle: non-tender, normal inspection, normal range of motion, no evidence of injury Foot Exam: bilateral foot: non-tender, normal inspection, normal range of mo tion, no evidence of injury Neuro/Tendon Exam: normal sensation, normal motor functions, normal tendon functions, responds to pain Mental Status Exam: alert, oriented x 3, cooperative Skin Exam: other (Cellulitis L pre-tibial area) SpO2 Interpretation: normal SpO2: 98 O2 Delivery: Room Air - Course Nursing assessment & vital signs reviewed: Yes EKG Interpreted by Me: RATE (Afib w RVR) - Radiology Exams Chest X-ray Interpretation: Discussed w/ radiologist (Cardiomegaly) - Radiology Ultrasound Exam Venous Lower Extremity Ultrasound: Other (No DVT per tech) Ordered Tests: Active Orders 24 hr Category Date Time Status Automobile Brake Bonder STAT Care 04/09/20 13:48 Completed EKG-ER Only STAT Care 04/09/20 13:39 Completed Fall Protocol ROUTINE Care 04/09/20 15:59 Completed IV Insertion STAT Care 04/09/20 13:48 Completed IV Insertion-2nd Peripheral STAT Care 04/09/20 13:48 Completed POCT Glucose Check STAT Care 04/09/20 14:10 Completed cath [Cath for Specimen-Straight] STAT Care 04/09/20 14:18 Completed Consistent Carbohydrate Diet 2000 Calorie Diet 04/09/20 Dinner Active CHEST 1 VIEW (PORTABLE) Stat Exams 04/09/20 13:40 Completed VENOUS UNILAT/LIMITED EXTREMIT [US] Stat Exams 04/09/20 15:45 Completed BLOOD CULTURE Stat Lab 04/09/20 16:10 Received CBC W DIFF Stat Lab 04/09/20 13:45 Completed CMP Stat Lab 04/09/20 13:45 Completed LIPID PROFILE AM.LAB Lab 04/10/20 04:00 Ordered Lactic Acid Stat Lab 04/09/20 13:41 Completed NT PRO BNP Stat Lab 04/09/20 14:10 Completed POCT GLUCOSE Stat Lab 04/09/20 13:37 Completed PROTIME WITH INR Stat Lab 04/09/20 13:45 Completed PTT Stat Lab 04/09/20 13:45 Completed TROPONIN Q3H Lab 04/09/20 13:30 Completed TROPONIN Q3H Lab 04/09/20 19:04 Completed TROPONIN Q3H Lab 04/09/20 22:00 Ordered UA W/RFX UR CULTURE Stat Lab 04/09/20 14:19 Completed Transfer Order Routine Transfer 04/09/20 Completed Medication Summary Generic Name Dose Route Start Last Admin Trade Name Freq PRN Reason Stop Dose Admin Acetaminophen 650 mg 04/09/20 15:56 Tylenol 325 Mg PO 05/09/20 15:55 Q4H PRN PRN PAIN AND/OR FEVER Al Hydrox/Mg Hydrox/Simethicone 30 ml 04/09/20 15:56 Maalox Es 30 Ml Unit Dose PO 05/09/20 15:55 Q4H PRN PRN INDIGESTION Aspirin 81 mg 04/10/20 10:00 Ecotrin 81 Mg PO 05/10/20 09:59 DAILY [facility] Buspirone HCl 10 mg 04/09/20 22:00 Buspar 5 Mg PO 05/09/20 21:59 BID [facility] Cholecalciferol 2,000 unit 04/10/20 10:00 Vitamin D PO 05/10/20 09:59 DAILY [facility] Cyanocobalamin 1,000 mcg 04/10/20 10:00 Vitamin B-12 500 Mcg PO 05/10/20 09:59 DAILY [facility] Ferrous Sulfate 325 mg 04/10/20 10:00 Feosol 325 Mg PO 05/10/20 09:59 DAILY [facility] Furosemide 40 mg 04/09/20 17:22 Lasix 40 Mg/4 Ml IV 05/09/20 17:21 ONCE PRN fluid overload Furosemide 80 mg 04/10/20 10:00 Lasix 40 Mg PO 05/10/20 09:59 DAILY [facility] Vancomycin HCl 1 gm in 200 mls @ 100 mls/hr 04/10/20 18:00 Vancomycin 1 Gram/200 Ml Bag IV 05/10/20 17:59 Q24H [facility] Insulin Human Lispro 0 unit 04/09/20 15:56 04/09/20 18:26 Humalog SQ 05/09/20 15:55 2 unit UD PRN Administration HYPERGLYCEMIA Isosorbide Mononitrate 60 mg 04/10/20 10:00 Imdur 60mg PO 05/10/20 09:59 DAILY [facility] Loratadine 10 mg 04/10/20 10:00 Claritin 10 Mg PO 05/10/20 09:59 DAILY [facility] Magnesium Hydroxide 30 - 60 ml 04/09/20 15:56 Milk Of Magnesia 30 Ml PO 05/09/20 15:55 QDP PRN CONSTIPATION Magnesium Oxide 200 mg 04/10/20 10:00 Mag-Ox 400 PO 05/10/20 09:59 DAILY [facility] Metoprolol Tartrate 50 mg 04/09/20 22:00 Lopressor 50 Mg PO 05/09/20 21:59 BID [facility] Miscellaneous Information 0 each 04/09/20 18:00 Medication Intervention MC 05/09/20 17:59 .RN TO CHECK WITH PT [facility] Multivitamins Therapeutic 1 tab 04/10/20 10:00 Theragran Multivitamin PO 05/10/20 09:59 DAILY [facility] Nitroglycerin 0.4 mg 04/09/20 17:29 Nitrostat 0.4 Mg Tablet SL 05/09/20 17:28 Q5MIN PRN MR X 3 PRN cp Ondansetron HCl 4 mg 04/09/20 15:56 Zofran 4 Mg/2 Ml Vial IV 05/09/20 15:55 Q4H PRN PRN NAUSEA/VOMITING Oxybutynin Chloride 5 mg 04/10/20 10:00 Ditropan 5 Mg PO 05/10/20 09:59 BID [facility] Pantoprazole Sodium 40 mg 04/10/20 10:00 Protonix 40mg Tablet PO 05/10/20 09:59 DAILY [facility] Rivaroxaban 20 mg 04/10/20 18:00 Xarelto 10 Mg Tablet PO 05/10/20 17:59 EVENING MEAL [facility] Senna/Docusate Sodium 2 udtab 04/09/20 15:56 Senokot-S Tablet PO 05/09/20 15:55 BID PRN PRN CONSTIPATION Discontinued Medications Generic Name Dose Route Start Last Admin Trade Name Freq PRN Reason Stop Dose Admin Diltiazem HCl 15 mg 04/09/20 13:39 04/09/20 13:50 Cardizem Iv 50 Mg/10 Ml IV 04/09/20 13:40 Not Given STAT ONE Diltiazem HCl Confirm 04/09/20 13:41 Cardizem Iv 50 Mg/10 Ml Administered 04/09/20 13:42 Dose 50 mg IV .STK-MED ONE Vancomycin HCl 1 gm in 200 mls @ 125 mls/hr 04/09/20 16:00 04/09/20 16:00 Vancomycin 1 Gram/200 Ml Bag IV 05/09/20 15:59 125 ml/hr Q12H NAE 125 mls/hr Administration Vancomycin HCl Confirm 04/09/20 15:57 Vancomycin 1 Gram/200 Ml Bag Administered 04/09/20 15:58 Dose 1 gm in 200 mls @ ud IV .STK-MED ONE Sodium Chloride 500 mls @ 50 mls/hr 04/09/20 17:30 Sodium Chloride 0.9% 500 Ml IV 05/09/20 17:29 .Q10H [facility] Metoprolol Tartrate 100 mg 04/09/20 13:45 04/09/20 13:48 Lopressor 50 Mg PO 04/09/20 13:46 100 mg ONCE STA Administration Metoprolol Tartrate Confirm 04/09/20 13:47 Lopressor 50 Mg Administered 04/09/20 13:48 Dose 100 mg .ROUTE .STK-MED ONE Non-Formulary Medication 1 each 04/09/20 17:07 Pharmacy Dosing Required: Vancomycin IV 04/09/20 17:08 STAT STA Lab/Rad Data: Laboratory Result Diagrams 04/09/20 13:45 04/09/20 13:45 Laboratory Results 04/09/20 04/09/20 04/09/20 Range/Units 14:19 14:10 13:45 WBC (4.0-10.5) K/mm3 RBC (4.1-5.4) M/mm3 Hgb (12.0-16.0) gm/dl Hct (35-47) % MCV (78-100) fl MCH (26-32) pg MCHC (32-36) g/dl RDW (11.5-14.0) % Plt Count (150-450) K/mm3 MPV (7.5-11.0) fl Gran % (36.0-66.0) % Eos # (Auto) (0-0.5) Absolute Lymphs (auto) (1.0-4.6) Absolute Monos (auto) (0.0-1.3) Lymphocytes % (24.0-44.0) % Monocytes % (0.0-12.0) % Eosinophils % (0.00-5.0) % Basophils % (0.0-0.4) % Absolute Granulocytes (1.4-6.9) Basophils # (0-0.4) PT (9.95-12.35) SECONDS INR (0.8-3.0) APTT (25.3-37.0) SECONDS Sodium (137-145) mmol/L Potassium (3.5-5.1) mmol/L Chloride (98-107) mmol/L Carbon Dioxide (22-30) mmol/L Anion Gap (5-15) MEQ/L BUN (7-17) mg/dL Creatinine (0.52-1.04) mg/dL Estimated GFR ML/MIN Glucose (74-106) mg/dL POC Glucometer (74 to 106) mg/dL Hemoglobin A1c 9.79 H (4.5-6.0) % Lactic Acid (0.4-2.0) Calcium (8.4-10.2) mg/dL Total Bilirubin (0.2-1.3) mg/dL AST (14-36) U/L ALT (0-35) U/L Alkaline Phosphatase (38-126) U/L Troponin I (0.000-0.034) ng/mL NT-Pro-B Natriuret Pep 4300 H (0-1800) pg/mL Serum Total Protein (6.3-8.2) g/dL Albumin (3.5-5.0) g/dL Urine Color YELLOW (YELLOW) Urine Appearance SLIGHTLY CLOUDY (CLEAR) Urine pH 5.0 (5-6) Ur Specific [place] 1.021 (1.005-1.025) Urine Protein 30 (Negative) Urine Ketones NEGATIVE (NEGATIVE) Urine Blood NEGATIVE (0-5) Jayme/ul Urine Nitrite NEGATIVE (NEGATIVE) Urine Bilirubin NEGATIVE (NEGATIVE) Urine Urobilinogen NEGATIVE (0-1) mg/dL Ur Leukocyte Esterase NEGATIVE (NEGATIVE) Urine WBC (Auto) 3-5 (0-5) /HPF Urine RBC (Auto) 0-2 (0-2) /HPF U Epithel Cells (Auto) NONE (FEW) /HPF Urine Bacteria (Auto) RARE (NEGATIVE) /HPF Amorphous Crystals FEW (NEGATIVE) /HPF Granular Casts (Auto) 5-10 (NEGATIVE) /LPF Urine Mucus (Auto) SLIGHT (NEGATIVE) /HPF Urine Culture Reflexed NO (NO) Urine Glucose >=500 (NEGATIVE) mg/dL 04/09/20 04/09/20 04/09/20 Range/Units 13:45 13:45 13:45 WBC 13.6 H (4.0-10.5) K/mm3 RBC 3.64 L (4.1-5.4) M/mm3 Hgb 10.9 L (12.0-16.0) gm/dl Hct 33.7 L (35-47) % MCV 92.6 (78-100) fl MCH 29.9 (26-32) pg MCHC 32.3 (32-36) g/dl RDW 14.1 H (11.5-14.0) % Plt Count 197 (150-450) K/mm3 MPV 10.7 (7.5-11.0) fl Gran % 87.2 H (36.0-66.0) % Eos # (Auto) 0.01 (0-0.5) Absolute Lymphs (auto) 1.08 (1.0-4.6) Absolute Monos (auto) 0.64 (0.0-1.3) Lymphocytes % 7.9 L (24.0-44.0) % Monocytes % 4.7 (0.0-12.0) % Eosinophils % 0.1 (0.00-5.0) % Basophils % 0.1 (0.0-0.4) % Absolute Granulocytes 11.87 H (1.4-6.9) Basophils # 0.02 (0-0.4) PT 21.9 H (9.95-12.35) SECONDS INR 1.93 (0.8-3.0) APTT 31.1 (25.3-37.0) SECONDS Sodium 133 L (137-145) mmol/L Potassium 4.0 (3.5-5.1) mmol/L Chloride 95 L (98-107) mmol/L Carbon Dioxide 27 (22-30) mmol/L Anion Gap 15.1 H (5-15) MEQ/L BUN 25 H (7-17) mg/dL Creatinine 0.95 (0.52-1.04) mg/dL Estimated GFR 59.4 ML/MIN Glucose 322 H (74-106) mg/dL POC Glucometer (74 to 106) mg/dL Hemoglobin A1c (4.5-6.0) % Lactic Acid (0.4-2.0) Calcium 9.1 (8.4-10.2) mg/dL Total Bilirubin 1.10 (0.2-1.3) mg/dL AST 18 (14-36) U/L ALT 16 (0-35) U/L Alkaline Phosphatase 80 (38-126) U/L Troponin I (0.000-0.034) ng/mL NT-Pro-B Natriuret Pep (0-1800) pg/mL Serum Total Protein 7.6 (6.3-8.2) g/dL Albumin 4.0 (3.5-5.0) g/dL Urine Color (YELLOW) Urine Appearance (CLEAR) Urine pH (5-6) Ur Specific [place] (1.005-1.025) Urine Protein (Negative) Urine Ketones (NEGATIVE) Urine Blood (0-5) Jayme/ul Urine Nitrite (NEGATIVE) Urine Bilirubin (NEGATIVE) Urine Urobilinogen (0-1) mg/dL Ur Leukocyte Esterase (NEGATIVE) Urine WBC (Auto) (0-5) /HPF Urine RBC (Auto) (0-2) /HPF U Epithel Cells (Auto) (FEW) /HPF Urine Bacteria (Auto) (NEGATIVE) /HPF Amorphous Crystals (NEGATIVE) /HPF Granular Casts (Auto) (NEGATIVE) /LPF Urine Mucus (Auto) (NEGATIVE) /HPF Urine Culture Reflexed (NO) Urine Glucose (NEGATIVE) mg/dL 04/09/20 04/09/20 04/09/20 Range/Units 13:41 13:37 13:30 WBC (4.0-10.5) K/mm3 RBC (4.1-5.4) M/mm3 Hgb (12.0-16.0) gm/dl Hct (35-47) % MCV (78-100) fl MCH (26-32) pg MCHC (32-36) g/dl RDW (11.5-14.0) % Plt Count (150-450) K/mm3 MPV (7.5-11.0) fl Gran % (36.0-66.0) % Eos # (Auto) (0-0.5) Absolute Lymphs (auto) (1.0-4.6) Absolute Monos (auto) (0.0-1.3) Lymphocytes % (24.0-44.0) % Monocytes % (0.0-12.0) % Eosinophils % (0.00-5.0) % Basophils % (0.0-0.4) % Absolute Granulocytes (1.4-6.9) Basophils # (0-0.4) PT (9.95-12.35) SECONDS INR (0.8-3.0) APTT (25.3-37.0) SECONDS Sodium (137-145) mmol/L Potassium (3.5-5.1) mmol/L Chloride (98-107) mmol/L Carbon Dioxide (22-30) mmol/L Anion Gap (5-15) MEQ/L BUN (7-17) mg/dL Creatinine (0.52-1.04) mg/dL Estimated GFR ML/MIN Glucose (74-106) mg/dL POC Glucometer 265 H (74 to 106) mg/dL Hemoglobin A1c (4.5-6.0) % Lactic Acid 3.2 H (0.4-2.0) Calcium (8.4-10.2) mg/dL Total Bilirubin (0.2-1.3) mg/dL AST (14-36) U/L ALT (0-35) U/L Alkaline Phosphatase (38-126) U/L Troponin I < 0.012 (0.000-0.034) ng/mL NT-Pro-B Natriuret Pep (0-1800) pg/mL Serum Total Protein (6.3-8.2) g/dL Albumin (3.5-5.0) g/dL Urine Color (YELLOW) Urine Appearance (CLEAR) Urine pH (5-6) Ur Specific [place] (1.005-1.025) Urine Protein (Negative) Urine Ketones (NEGATIVE) Urine Blood (0-5) Jayme/ul Urine Nitrite (NEGATIVE) Urine Bilirubin (NEGATIVE) Urine Urobilinogen (0-1) mg/dL Ur Leukocyte Esterase (NEGATIVE) Urine WBC (Auto) (0-5) /HPF Urine RBC (Auto) (0-2) /HPF U Epithel Cells (Auto) (FEW) /HPF Urine Bacteria (Auto) (NEGATIVE) /HPF Amorphous Crystals (NEGATIVE) /HPF Granular Casts (Auto) (NEGATIVE) /LPF Urine Mucus (Auto) (NEGATIVE) /HPF Urine Culture Reflexed (NO) Urine Glucose (NEGATIVE) mg/dL - Progress Progress: improved Progress Note: 04/09/20 15:[address] Escobar to ICU 04/09/20 19:56 15mg IV Cardizem originally ordered for Afib wRVR but discontinued because HR decreased to lower 100's, so 100mg po Lopressor given w good response in HR and blood pressure. Blood cultures done in ER and 1gm IV Vancomycin given. Discussed with : Mike Counseled pt/family regarding: lab results, diagnosis, rad results - Departure Departure Disposition: In-patient Admission Clinical Impression: Cellulitis, Atrial fibrillation with RVR Condition: Stable Critical Care Time: Yes Critical Care Time(excluding separately billable procedures): Critical 30-74 mins
[2020-04-09 14:05] LABS: Absolute Neutrophil Ct (ANC) 11.87 (1.4-6.9); BASOPHIL % 0.1 % (0.0-0.4); Basophil (Absolute #) 0.02 (0-0.4); Eosinophil % 0.1 % (0.00-5.0); Eosinophil (Absolute #) 0.01 (0-0.5); Hematocrit 33.7 % (35-47); Hemoglobin 10.9 gm/dl (12.0-16.0); Lymphocyte (Absolute #) 1.08 (1.0-4.6); Lymphocytes % 7.9 % (24.0-44.0); Mean Cell Volume 92.6 fl (78-100); Mean Corpuscular Hemoglobin 29.9 pg (26-32); Mean Corpuscular Hgb Concent. 32.3 g/dl (32-36); Mean Platelet Volume 10.7 fl (7.5-11.0); Monocyte (Absolute #) 0.64 (0.0-1.3); Monocytes % 4.7 % (0.0-12.0); Neutrophil % 87.2 % (36.0-66.0); Platelet Count 197 K/mm3 (150-450); Red Blood Count 3.64 M/mm3 (4.1-5.4); Red Cell Distribution Width 14.1 % (11.5-14.0); White Blood Count 13.6 K/mm3 (4.0-10.5)
--- NOTE | 2020-04-09 14:19 | XRAY ---
Indication: Left leg swelling. Atrial fibrillation. Comparison: August 06, 2019. Portable apical lordotic chest is now clear. Heart is borderline enlarged again with coronary stent. Bony thorax intact again with mild osteopenia and degenerative changes. Impression: Borderline cardiomegaly. Negative for acute pneumonic process or CHF.
[2020-04-09 14:20] LABS: INR 1.93 (0.8-3.0); PROTIME 21.9 SECONDS (9.95-12.35)
[2020-04-09 14:22] LABS: PTT 31.1 SECONDS (25.3-37.0)
[2020-04-09 14:25] LABS: ANION GAP 15.1 MEQ/L (5-15); BILIRUBIN,TOTAL 1.1 mg/dL (0.2-1.3); Calcium 9.1 mg/dL (8.4-10.2); Creatinine 1 0.95 mg/dL (0.52-1.04); EST GLOMERULAR FILTRATION RATE 59.4 ML/MIN; Total Protein 7.6 g/dL (6.3-8.2)
[2020-04-09 15:54] LABS: Amourphous Crystal FEW /HPF (NEGATIVE); Appearance SLIGHTLY CLOUDY (CLEAR); Bacteria RARE /HPF (NEGATIVE); Bilirubin NEGATIVE (NEGATIVE); Blood NEGATIVE Ery/ul (0-5); Glucose >=500 mg/dL (NEGATIVE); Ketones NEGATIVE (NEGATIVE); Leukocyte Esterase NEGATIVE (NEGATIVE); Mucus SLIGHT /HPF (NEGATIVE); Nitrite NEGATIVE (NEGATIVE); Protein,Urine Dip 30 (Negative); RBC 0-2 /HPF (0-2); Specific Gravity 1.021 (1.005-1.025); Urobilinogen NEGATIVE mg/dL (0-1)
[2020-04-09] MEDS ORDERED: MILK OF MAGNESIA 30 ML PO PRN (15:56)
[2020-04-09] MEDS ORDERED: Senokot-S Tablet PO PRN (15:56)
[2020-04-09] MEDS ORDERED: Zofran 4 MG/2 ML VIAL IV PRN (15:56)
[2020-04-09] MEDS ORDERED: MAALOX ES 30 ML UNIT DOSE PO PRN (15:56)
[2020-04-09] MEDS ORDERED: VANCOMYCIN 1 GRAM/200 ML BAG 1 GM/200 ML PIGGYBACK IV ONE (15:57)
[2020-04-09] MEDS ORDERED: VANCOMYCIN 1 GRAM/200 ML BAG 1 GM/200 ML PIGGYBACK IV SCH (16:00)
--- NOTE | 2020-04-09 16:36 | XRAY ---
Indication: Left lower extremity pain and swelling. 2-dimensional sonogram and color Doppler imaging of the major venous vessels of the left leg was performed. Comparison: None No thrombus seen in the examined deep venous vessels of the left leg including greater saphenous vein. Veins demonstrate normal compressibility. Venous waveforms are normal with and without augmentation. Impression: Left leg negative for DVT.
[2020-04-09] MEDS ORDERED: PHARMACY DOSING REQUIRED: VANCOMYCIN IV STA (17:07)
[2020-04-09] MEDS ORDERED: Lasix 40 MG/4 ML IV PRN (17:22)
[2020-04-09] MEDS ORDERED: Nitrostat 0.4 MG Tablet SL PRN (17:29)
[2020-04-09] MEDS ORDERED: Sodium Chloride 0.9% 500 ML 500 ML IV SCH (17:30)
[2020-04-09] MEDS ORDERED: MEDICATION INTERVENTION MC SCH (18:00)
[2020-04-09] MEDS: HUMALOG SQ PRN ×2 (18:26→22:25)
[2020-04-09] MEDS ORDERED: NON-FORMULARY ITEM (Buspirone Hcl [Buspar] 10 MG) PO SCH (22:00)
[2020-04-09] MEDS: Lopressor 50 MG PO SCH (22:24)
[2020-04-09] MEDS: BUSPAR 5 MG PO SCH (22:25)
[2020-04-09] MEDS: TYLENOL 325 MG PO PRN (22:25)
[2020-04-09] MEDS ORDERED: xanAX 0.25 MG PO SCH (23:45)
--- NOTE | 2020-04-09 23:58 | PCM.HP ---
History of Present Illness - Chief Complaint Chief Complaint: LLE cellulitis; A-fib with RVR History of Present Illness: is a 85 year old female with several days of swelling, redness and pain to LLE, had doppler and no clot in ER, admitted for cellulitis, in a fib chronically but rate not controlled on presentation. lives with her grandson, she is very confused at the time of interview on the floor and no family is present due to covid resrictions. - Review of Systems Constitutional: Fever, Chills Respiratory: No Cough, No Short Of Breath Cardiac: Edema, No Chest Pain, No Syncope Skin: Cellulitis All Other Systems: Reviewed and Negative Medications & Allergies Home Medications: Home Medication List Buspirone HCl [Buspar] 10 mg PO BID 07/29/19 [History Confirmed 04/09/20] Glimepiride 2 mg [Amaryl 2 MG] 2 mg PO BID 07/29/19 [History Confirmed 04/09/20] Loratadine 10 mg [Claritin 10 mg] 10 mg PO DAILY 07/29/19 [History Confirmed 04/09/20] Metformin HCl 500 mg [Glucophage 500 MG] 500 mg PO TID 07/29/19 [History Confirmed 04/09/20] Nitroglycerin 0.4 mg Tablet [Nitrostat 0.4 MG Tablet] 0.4 mg SL Q5MIN PRN MR X 3 PRN 07/29/19 [History Confirmed 04/09/20] Rivaroxaban 10 mg Tablet [Xarelto 10 mg Tablet] 20 mg PO EVENING MEAL 07/29/19 [History Confirmed 04/09/20] Solifenacin Succinate 5 mg PO DAILY 08/06/19 [History Confirmed 04/09/20] Aspirin EC 81 mg [Ecotrin 81 mg] 81 mg PO DAILY 04/09/20 [History Confirmed 04/09/20] Cholecalciferol (Vitamin D3) [Vitamin D3] 2,000 iu PO DAILY 04/09/20 [History Confirmed 04/09/20] Cyanocobalamin 500 Mcg [Vitamin B-12 500 MCG] 1,000 mcg PO DAILY 04/09/20 [History Confirmed 04/09/20] Ferrous Sulfate 325 mg [Feosol 325 mg] 325 mg PO DAILY 04/09/20 [History Confirmed 04/09/20] Furosemide 80 mg PO DAILY 04/09/20 [History Confirmed 04/09/20] Isosorbide Mononitrate 60 mg [Imdur 60MG] 60 mg PO DAILY 04/09/20 [History Confirmed 04/09/20] Magnesium 250 mg PO DAILY 04/09/20 [History Confirmed 04/09/20] Metoprolol Tartrate 50 mg PO BID 04/09/20 [History Confirmed 04/09/20] Multivitamins,Therapeutic Tab* [Theragran Multivitamin] 1 tab PO DAILY 04/09/20 [History Confirmed 04/09/20] Omeprazole 20 mg PO QAM 04/09/20 [History Confirmed 04/09/20] Potassium Gluconate 99 mg PO DAILY 04/09/20 [History Confirmed 04/09/20] Allergies/Adverse Reactions: Allergies Allergy/AdvReac Type Severity Reaction Status Date / Time dicyclomine [Dicyclomine] Allergy Intermediate NAUSEA, Verified 04/09/20 13:28 STOMACH PAIN Sulfa (Sulfonamide Allergy Unknown Verified 04/09/20 13:28 Antibiotics) [Sulfa(Sulfonamide Antibiotics)] [id number] Reductase Allergy Verified 04/09/20 13:28 Inhibitor - Past Medical History Past Medical History: Yes Neurological History: No Pertinent History ENT History: Cataracts, Macular Degeneration Cardiac History: Angina, High Cholesterol Respiratory History: No Pertinent History Endocrine Medical History: Diabetes Type II Musculoskelatal History: Other GI Medical History: Irritable Bowel History: No Pertinent History Pyscho-Social History: Depression Reproductive Disorders: No Pertinent History Comment: hearing loss wears hearing aides, rib fx - Female History Are you now?: No - Past Surgical History Past Surgical History: Yes Neuro Surgical History: No Pertinent History Cardiac History: No Pertinent History, Cardiac Catheterization Respiratory Surgery: No Pertinent History GI Surgical History: Cholecystectomy, Exploratory Laparoscopy Genitourinary Surgical Hx: No Pertinent History Musculskeletal Surgical Hx: Orthopedic Surgery, Other Female Surgical History: Tubal Ligation Other Surgical History: Surgery to left pinky finger-russ insertion. bladder tie up, hx of L hip fx repair. L knee replacement - Social History Smoking Status: Never smoker Exposure to second hand smoke: No Alcohol: None Drug Use: none Significant Family History: no pertinent family hx - Physical Exam Vital Signs: Vital Signs - 24 hr Temp Pulse Resp BP BP Pulse Ox 04/09/20 20:00 98 04/09/20 20:00 98.6 F 98 H 19 133/67 96 04/09/20 19:25 95 04/09/20 17:35 100.1 F 97 H 19 138/81 99 04/09/20 16:39 100.1 F 97 H 19 138/81 99 04/09/20 16:38 100.1 F 97 H 19 138/81 99 04/09/20 15:00 96 H 20 141/81 93 L 04/09/20 14:09 116 H 18 160/88 97 04/09/20 13:52 112 H 16 142/95 97 04/09/20 13:22 98.0 F 19 158/118 98 General Appearance: no apparent distress, alert Neurologic Exam: alert, cooperative, No oriented x 3 Respiratory Exam: normal breath sounds, lungs clear, No respiratory distress Cardiovascular Exam: regular rate/rhythm, normal heart sounds, normal peripheral pulses Gastrointestinal/Abdomen Exam: soft, normal bowel sounds, No tenderness, No mass Extremity Exam: swelling, other (erythema, warmth to LLE, 2+ pitting edema LLE>RLE) Results - Labs Lab/Micro Results: Lab Results-Last 24 Hours 04/09/20 04/09/20 04/09/20 Range/Units 13:30 13:37 13:41 WBC (4.0-10.5) K/mm3 RBC (4.1-5.4) M/mm3 Hgb (12.0-16.0) gm/dl Hct (35-47) % MCV (78-100) fl MCH (26-32) pg MCHC (32-36) g/dl RDW (11.5-14.0) % Plt Count (150-450) K/mm3 MPV (7.5-11.0) fl Gran % (36.0-66.0) % Eos # (Auto) (0-0.5) Absolute Lymphs (auto) (1.0-4.6) Absolute Monos (auto) (0.0-1.3) Lymphocytes % (24.0-44.0) % Monocytes % (0.0-12.0) % Eosinophils % (0.00-5.0) % Basophils % (0.0-0.4) % Absolute Granulocytes (1.4-6.9) Basophils # (0-0.4) PT (9.95-12.35) SECONDS INR (0.8-3.0) APTT (25.3-37.0) SECONDS Sodium (137-145) mmol/L Potassium (3.5-5.1) mmol/L Chloride (98-107) mmol/L Carbon Dioxide (22-30) mmol/L Anion Gap (5-15) MEQ/L BUN (7-17) mg/dL Creatinine (0.52-1.04) mg/dL Estimated GFR ML/MIN Glucose (74-106) mg/dL POC Glucometer 265 H (74 to 106) mg/dL Hemoglobin A1c (4.5-6.0) % Lactic Acid 3.2 H (0.4-2.0) Calcium (8.4-10.2) mg/dL Total Bilirubin (0.2-1.3) mg/dL AST (14-36) U/L ALT (0-35) U/L Alkaline Phosphatase (38-126) U/L Troponin I < 0.012 (0.000-0.034) ng/mL NT-Pro-B Natriuret Pep (0-1800) pg/mL Serum Total Protein (6.3-8.2) g/dL Albumin (3.5-5.0) g/dL Prealbumin (17.6-36.0) mg/dL Urine Color (YELLOW) Urine Appearance (CLEAR) Urine pH (5-6) Ur Specific [place] (1.005-1.025) Urine Protein (Negative) Urine Ketones (NEGATIVE) Urine Blood (0-5) Jayme/ul Urine Nitrite (NEGATIVE) Urine Bilirubin (NEGATIVE) Urine Urobilinogen (0-1) mg/dL Ur Leukocyte Esterase (NEGATIVE) Urine WBC (Auto) (0-5) /HPF Urine RBC (Auto) (0-2) /HPF U Epithel Cells (Auto) (FEW) /HPF Urine Bacteria (Auto) (NEGATIVE) /HPF Amorphous Crystals (NEGATIVE) /HPF Granular Casts (Auto) (NEGATIVE) /LPF Urine Mucus (Auto) (NEGATIVE) /HPF Urine Culture Reflexed (NO) Urine Glucose (NEGATIVE) mg/dL 04/09/20 04/09/20 04/09/20 Range/Units 13:45 13:45 13:45 WBC 13.6 H (4.0-10.5) K/mm3 RBC 3.64 L (4.1-5.4) M/mm3 Hgb 10.9 L (12.0-16.0) gm/dl Hct 33.7 L (35-47) % MCV 92.6 (78-100) fl MCH 29.9 (26-32) pg MCHC 32.3 (32-36) g/dl RDW 14.1 H (11.5-14.0) % Plt Count 197 (150-450) K/mm3 MPV 10.7 (7.5-11.0) fl Gran % 87.2 H (36.0-66.0) % Eos # (Auto) 0.01 (0-0.5) Absolute Lymphs (auto) 1.08 (1.0-4.6) Absolute Monos (auto) 0.64 (0.0-1.3) Lymphocytes % 7.9 L (24.0-44.0) % Monocytes % 4.7 (0.0-12.0) % Eosinophils % 0.1 (0.00-5.0) % Basophils % 0.1 (0.0-0.4) % Absolute Granulocytes 11.87 H (1.4-6.9) Basophils # 0.02 (0-0.4) PT 21.9 H (9.95-12.35) SECONDS INR 1.93 (0.8-3.0) APTT 31.1 (25.3-37.0) SECONDS Sodium 133 L (137-145) mmol/L Potassium 4.0 (3.5-5.1) mmol/L Chloride 95 L (98-107) mmol/L Carbon Dioxide 27 (22-30) mmol/L Anion Gap 15.1 H (5-15) MEQ/L BUN 25 H (7-17) mg/dL Creatinine 0.95 (0.52-1.04) mg/dL Estimated GFR 59.4 ML/MIN Glucose 322 H (74-106) mg/dL POC Glucometer (74 to 106) mg/dL Hemoglobin A1c (4.5-6.0) % Lactic Acid (0.4-2.0) Calcium 9.1 (8.4-10.2) mg/dL Total Bilirubin 1.10 (0.2-1.3) mg/dL AST 18 (14-36) U/L ALT 16 (0-35) U/L Alkaline Phosphatase 80 (38-126) U/L Troponin I (0.000-0.034) ng/mL NT-Pro-B Natriuret Pep (0-1800) pg/mL Serum Total Protein 7.6 (6.3-8.2) g/dL Albumin 4.0 (3.5-5.0) g/dL Prealbumin (17.6-36.0) mg/dL Urine Color (YELLOW) Urine Appearance (CLEAR) Urine pH (5-6) Ur Specific [place] (1.005-1.025) Urine Protein (Negative) Urine Ketones (NEGATIVE) Urine Blood (0-5) Jayme/ul Urine Nitrite (NEGATIVE) Urine Bilirubin (NEGATIVE) Urine Urobilinogen (0-1) mg/dL Ur Leukocyte Esterase (NEGATIVE) Urine WBC (Auto) (0-5) /HPF Urine RBC (Auto) (0-2) /HPF U Epithel Cells (Auto) (FEW) /HPF Urine Bacteria (Auto) (NEGATIVE) /HPF Amorphous Crystals (NEGATIVE) /HPF Granular Casts (Auto) (NEGATIVE) /LPF Urine Mucus (Auto) (NEGATIVE) /HPF Urine Culture Reflexed (NO) Urine Glucose (NEGATIVE) mg/dL 04/09/20 04/09/20 04/09/20 Range/Units 13:45 14:10 14:19 WBC (4.0-10.5) K/mm3 RBC (4.1-5.4) M/mm3 Hgb (12.0-16.0) gm/dl Hct (35-47) % MCV (78-100) fl MCH (26-32) pg MCHC (32-36) g/dl RDW (11.5-14.0) % Plt Count (150-450) K/mm3 MPV (7.5-11.0) fl Gran % (36.0-66.0) % Eos # (Auto) (0-0.5) Absolute Lymphs (auto) (1.0-4.6) Absolute Monos (auto) (0.0-1.3) Lymphocytes % (24.0-44.0) % Monocytes % (0.0-12.0) % Eosinophils % (0.00-5.0) % Basophils % (0.0-0.4) % Absolute Granulocytes (1.4-6.9) Basophils # (0-0.4) PT (9.95-12.35) SECONDS INR (0.8-3.0) APTT (25.3-37.0) SECONDS Sodium (137-145) mmol/L Potassium (3.5-5.1) mmol/L Chloride (98-107) mmol/L Carbon Dioxide (22-30) mmol/L Anion Gap (5-15) MEQ/L BUN (7-17) mg/dL Creatinine (0.52-1.04) mg/dL Estimated GFR ML/MIN Glucose (74-106) mg/dL POC Glucometer (74 to 106) mg/dL Hemoglobin A1c 9.79 H (4.5-6.0) % Lactic Acid (0.4-2.0) Calcium (8.4-10.2) mg/dL Total Bilirubin (0.2-1.3) mg/dL AST (14-36) U/L ALT (0-35) U/L Alkaline Phosphatase (38-126) U/L Troponin I (0.000-0.034) ng/mL NT-Pro-B Natriuret Pep 4300 H (0-1800) pg/mL Serum Total Protein (6.3-8.2) g/dL Albumin (3.5-5.0) g/dL Prealbumin (17.6-36.0) mg/dL Urine Color YELLOW (YELLOW) Urine Appearance SLIGHTLY CLOUDY (CLEAR) Urine pH 5.0 (5-6) Ur Specific [place] 1.021 (1.005-1.025) Urine Protein 30 (Negative) Urine Ketones NEGATIVE (NEGATIVE) Urine Blood NEGATIVE (0-5) Jayme/ul Urine Nitrite NEGATIVE (NEGATIVE) Urine Bilirubin NEGATIVE (NEGATIVE) Urine Urobilinogen NEGATIVE (0-1) mg/dL Ur Leukocyte Esterase NEGATIVE (NEGATIVE) Urine WBC (Auto) 3-5 (0-5) /HPF Urine RBC (Auto) 0-2 (0-2) /HPF U Epithel Cells (Auto) NONE (FEW) /HPF Urine Bacteria (Auto) RARE (NEGATIVE) /HPF Amorphous Crystals FEW (NEGATIVE) /HPF Granular Casts (Auto) 5-10 (NEGATIVE) /LPF Urine Mucus (Auto) SLIGHT (NEGATIVE) /HPF Urine Culture Reflexed NO (NO) Urine Glucose >=500 (NEGATIVE) mg/dL 04/09/20 04/09/20 04/09/20 Range/Units 16:32 16:57 19:04 WBC (4.0-10.5) K/mm3 RBC (4.1-5.4) M/mm3 Hgb (12.0-16.0) gm/dl Hct (35-47) % MCV (78-100) fl MCH (26-32) pg MCHC (32-36) g/dl RDW (11.5-14.0) % Plt Count (150-450) K/mm3 MPV (7.5-11.0) fl Gran % (36.0-66.0) % Eos # (Auto) (0-0.5) Absolute Lymphs (auto) (1.0-4.6) Absolute Monos (auto) (0.0-1.3) Lymphocytes % (24.0-44.0) % Monocytes % (0.0-12.0) % Eosinophils % (0.00-5.0) % Basophils % (0.0-0.4) % Absolute Granulocytes (1.4-6.9) Basophils # (0-0.4) PT (9.95-12.35) SECONDS INR (0.8-3.0) APTT (25.3-37.0) SECONDS Sodium (137-145) mmol/L Potassium (3.5-5.1) mmol/L Chloride (98-107) mmol/L Carbon Dioxide (22-30) mmol/L Anion Gap (5-15) MEQ/L BUN (7-17) mg/dL Creatinine (0.52-1.04) mg/dL Estimated GFR ML/MIN Glucose (74-106) mg/dL POC Glucometer 247 H (74 to 106) mg/dL Hemoglobin A1c (4.5-6.0) % Lactic Acid 2.4 H (0.4-2.0) Calcium (8.4-10.2) mg/dL Total Bilirubin (0.2-1.3) mg/dL AST (14-36) U/L ALT (0-35) U/L Alkaline Phosphatase (38-126) U/L Troponin I < 0.012 (0.000-0.034) ng/mL NT-Pro-B Natriuret Pep (0-1800) pg/mL Serum Total Protein (6.3-8.2) g/dL Albumin (3.5-5.0) g/dL Prealbumin (17.6-36.0) mg/dL Urine Color (YELLOW) Urine Appearance (CLEAR) Urine pH (5-6) Ur Specific [place] (1.005-1.025) Urine Protein (Negative) Urine Ketones (NEGATIVE) Urine Blood (0-5) Jayme/ul Urine Nitrite (NEGATIVE) Urine Bilirubin (NEGATIVE) Urine Urobilinogen (0-1) mg/dL Ur Leukocyte Esterase (NEGATIVE) Urine WBC (Auto) (0-5) /HPF Urine RBC (Auto) (0-2) /HPF U Epithel Cells (Auto) (FEW) /HPF Urine Bacteria (Auto) (NEGATIVE) /HPF Amorphous Crystals (NEGATIVE) /HPF Granular Casts (Auto) (NEGATIVE) /LPF Urine Mucus (Auto) (NEGATIVE) /HPF Urine Culture Reflexed (NO) Urine Glucose (NEGATIVE) mg/dL 04/09/20 04/09/20 04/09/20 Range/Units 19:04 20:57 22:16 WBC (4.0-10.5) K/mm3 RBC (4.1-5.4) M/mm3 Hgb (12.0-16.0) gm/dl Hct (35-47) % MCV (78-100) fl MCH (26-32) pg MCHC (32-36) g/dl RDW (11.5-14.0) % Plt Count (150-450) K/mm3 MPV (7.5-11.0) fl Gran % (36.0-66.0) % Eos # (Auto) (0-0.5) Absolute Lymphs (auto) (1.0-4.6) Absolute Monos (auto) (0.0-1.3) Lymphocytes % (24.0-44.0) % Monocytes % (0.0-12.0) % Eosinophils % (0.00-5.0) % Basophils % (0.0-0.4) % Absolute Granulocytes (1.4-6.9) Basophils # (0-0.4) PT (9.95-12.35) SECONDS INR (0.8-3.0) APTT (25.3-37.0) SECONDS Sodium (137-145) mmol/L Potassium (3.5-5.1) mmol/L Chloride (98-107) mmol/L Carbon Dioxide (22-30) mmol/L Anion Gap (5-15) MEQ/L BUN (7-17) mg/dL Creatinine (0.52-1.04) mg/dL Estimated GFR ML/MIN Glucose (74-106) mg/dL POC Glucometer 368 H (74 to 106) mg/dL Hemoglobin A1c (4.5-6.0) % Lactic Acid (0.4-2.0) Calcium (8.4-10.2) mg/dL Total Bilirubin (0.2-1.3) mg/dL AST (14-36) U/L ALT (0-35) U/L Alkaline Phosphatase (38-126) U/L Troponin I < 0.012 (0.000-0.034) ng/mL NT-Pro-B Natriuret Pep (0-1800) pg/mL Serum Total Protein (6.3-8.2) g/dL Albumin (3.5-5.0) g/dL Prealbumin 14.00 L (17.6-36.0) mg/dL Urine Color (YELLOW) Urine Appearance (CLEAR) Urine pH (5-6) Ur Specific [place] (1.005-1.025) Urine Protein (Negative) Urine Ketones (NEGATIVE) Urine Blood (0-5) Jayme/ul Urine Nitrite (NEGATIVE) Urine Bilirubin (NEGATIVE) Urine Urobilinogen (0-1) mg/dL Ur Leukocyte Esterase (NEGATIVE) Urine WBC (Auto) (0-5) /HPF Urine RBC (Auto) (0-2) /HPF U Epithel Cells (Auto) (FEW) /HPF Urine Bacteria (Auto) (NEGATIVE) /HPF Amorphous Crystals (NEGATIVE) /HPF Granular Casts (Auto) (NEGATIVE) /LPF Urine Mucus (Auto) (NEGATIVE) /HPF Urine Culture Reflexed (NO) Urine Glucose (NEGATIVE) mg/dL Accuchecks Date 04/09/20 Date 04/09/20 Date 04/09/20 Time 16:57 Time 16:57 Time 13:50 - Radiology Impressions Radiology Exams & Impressions: Radiology Procedures Category Date Time Status CHEST 1 VIEW (PORTABLE) Stat Exams 04/09/20 13:40 Completed VENOUS UNILAT/LIMITED EXTREMIT [US] Stat Exams 04/09/20 15:45 Completed - Other Procedures and Tests Respiratory Therapy 04/09/20 21:30 EKG ONCE 04/10/20 05:00 EKG ONCE 04/11/20 05:00 EKG ONCE 04/12/20 05:00 EKG ONCE Assessment/Plan (1) Atrial fibrillation with RVR Current Visit: Yes Status: Acute Assessment & Plan: rate controlled after toprol given in ER Code(s): I48.91 - UNSPECIFIED ATRIAL FIBRILLATION (2) Cellulitis Current Visit: Yes Status: Acute Assessment & Plan: on vanc Code(s): L03.90 - CELLULITIS, UNSPECIFIED (3) Diabetes mellitus Current Visit: No Status: Acute Code(s): E11.9 - TYPE 2 DIABETES MELLITUS WITHOUT COMPLICATIONS
[2020-04-10] MEDS: TYLENOL 325 MG PO PRN ×2 (04:55→15:53)
[2020-04-10 05:55] LABS: BASOPHIL % 0.1 % (0.0-0.4); Basophil (Absolute #) 0.01 (0-0.4); Eosinophil % 0.4 % (0.00-5.0); Eosinophil (Absolute #) 0.04 (0-0.5); Hematocrit 32.1 % (35-47); Hemoglobin 10.1 gm/dl (12.0-16.0); Lymphocyte (Absolute #) 0.86 (1.0-4.6); Lymphocytes % 8.5 % (24.0-44.0); Mean Cell Volume 94.7 fl (78-100); Mean Corpuscular Hemoglobin 29.8 pg (26-32); Mean Corpuscular Hgb Concent. 31.5 g/dl (32-36); Mean Platelet Volume 10.8 fl (7.5-11.0); Monocyte (Absolute #) 0.78 (0.0-1.3); Monocytes % 7.7 % (0.0-12.0); Neutrophil % 83.3 % (36.0-66.0); Platelet Count 182 K/mm3 (150-450); Red Blood Count 3.39 M/mm3 (4.1-5.4); Red Cell Distribution Width 14.6 % (11.5-14.0); White Blood Count 10.1 K/mm3 (4.0-10.5)
[2020-04-10 06:16] LABS: ANION GAP 12.2 MEQ/L (5-15); BLOOD UREA NITROGEN 24 mg/dL (7-17); CHLORIDE 97 mmol/L (98-107); Calcium 8.6 mg/dL (8.4-10.2); Carbon Dioxide 26 mmol/L (22-30); Creatinine 1 0.73 mg/dL (0.52-1.04); EST GLOMERULAR FILTRATION RATE > 60.0 ML/MIN; Glucose 215 mg/dL (74-106); Potassium 3.7 mmol/L (3.5-5.1); SODIUM 132 mmol/L (137-145)
[2020-04-10 06:26] LABS: Risk Ratio 5.3
--- NOTE | 2020-04-10 07:52 | PCM.NOTE ---
Date and Time: 04/10/20 0750 Subjective Assessment: pt reports pain, redness and swelling are improved in left leg. heart rate is controlled, no complaints Objective Exam General Appearance: no apparent distress Respiratory Exam: normal breath sounds Cardiovascular Exam: irregular Gastrointestinal/Abdomen Exam: soft Extremity Exam: swelling, other (warmth and erythema to LLE) OBJECTIVE DATA Vital Signs: Vital Signs - 24 hr Temp Pulse Resp BP BP Pulse Ox 04/10/20 07:27 94 L 04/10/20 06:15 108 H 17 132/71 90 L 04/10/20 04:00 100.8 F 101 H 22 131/85 97 04/10/20 00:01 91 H 04/09/20 23:53 99.7 F 91 H 24 97/36 92 L 04/09/20 20:00 98 04/09/20 20:00 98.6 F 98 H 19 133/67 96 04/09/20 19:25 95 04/09/20 17:35 100.1 F 97 H 19 138/81 99 04/09/20 16:39 100.1 F 97 H 19 138/81 99 04/09/20 16:38 100.1 F 97 H 19 138/81 99 04/09/20 15:00 96 H 20 141/81 93 L 04/09/20 14:09 116 H 18 160/88 97 04/09/20 13:52 112 H 16 142/95 97 04/09/20 13:22 98.0 F 19 158/118 98 Pain Assessment - Last Documented Pain Intensity 2 Pain Scale Used FLACC Intake and Output: Intake & Output 04/07/20 04/08/20 04/09/20 04/10/20 11:59 11:59 11:59 11:59 Intake Total 1060 Output Total 200 Balance 860 Weight 70.9 kg Lab Results: Lab Results-Last 24 Hours 04/09/20 04/09/20 04/09/20 Range/Units 13:30 13:37 13:41 WBC (4.0-10.5) K/mm3 RBC (4.1-5.4) M/mm3 Hgb (12.0-16.0) gm/dl Hct (35-47) % MCV (78-100) fl MCH (26-32) pg MCHC (32-36) g/dl RDW (11.5-14.0) % Plt Count (150-450) K/mm3 MPV (7.5-11.0) fl Gran % (36.0-66.0) % Eos # (Auto) (0-0.5) Absolute Lymphs (auto) (1.0-4.6) Absolute Monos (auto) (0.0-1.3) Lymphocytes % (24.0-44.0) % Monocytes % (0.0-12.0) % Eosinophils % (0.00-5.0) % Basophils % (0.0-0.4) % Absolute Granulocytes (1.4-6.9) Basophils # (0-0.4) PT (9.95-12.35) SECONDS INR (0.8-3.0) APTT (25.3-37.0) SECONDS Sodium (137-145) mmol/L Potassium (3.5-5.1) mmol/L Chloride (98-107) mmol/L Carbon Dioxide (22-30) mmol/L Anion Gap (5-15) MEQ/L BUN (7-17) mg/dL Creatinine (0.52-1.04) mg/dL Estimated GFR ML/MIN Glucose (74-106) mg/dL POC Glucometer 265 H (74 to 106) mg/dL Hemoglobin A1c (4.5-6.0) % Lactic Acid 3.2 H (0.4-2.0) Calcium (8.4-10.2) mg/dL Total Bilirubin (0.2-1.3) mg/dL AST (14-36) U/L ALT (0-35) U/L Alkaline Phosphatase (38-126) U/L Troponin I < 0.012 (0.000-0.034) ng/mL NT-Pro-B Natriuret Pep (0-1800) pg/mL Serum Total Protein (6.3-8.2) g/dL Albumin (3.5-5.0) g/dL Prealbumin (17.6-36.0) mg/dL Triglycerides (30-150) mg/dL Cholesterol (50-200) mg/dL LDL Cholesterol (30-100) mg/dL HDL Cholesterol (40-60) mg/dL Heart Disease Risk Ratio Urine Color (YELLOW) Urine Appearance (CLEAR) Urine pH (5-6) Ur Specific [place] (1.005-1.025) Urine Protein (Negative) Urine Ketones (NEGATIVE) Urine Blood (0-5) Jayme/ul Urine Nitrite (NEGATIVE) Urine Bilirubin (NEGATIVE) Urine Urobilinogen (0-1) mg/dL Ur Leukocyte Esterase (NEGATIVE) Urine WBC (Auto) (0-5) /HPF Urine RBC (Auto) (0-2) /HPF U Epithel Cells (Auto) (FEW) /HPF Urine Bacteria (Auto) (NEGATIVE) /HPF Amorphous Crystals (NEGATIVE) /HPF Granular Casts (Auto) (NEGATIVE) /LPF Urine Mucus (Auto) (NEGATIVE) /HPF Urine Culture Reflexed (NO) Urine Glucose (NEGATIVE) mg/dL 04/09/20 04/09/20 04/09/20 Range/Units 13:45 13:45 13:45 WBC 13.6 H (4.0-10.5) K/mm3 RBC 3.64 L (4.1-5.4) M/mm3 Hgb 10.9 L (12.0-16.0) gm/dl Hct 33.7 L (35-47) % MCV 92.6 (78-100) fl MCH 29.9 (26-32) pg MCHC 32.3 (32-36) g/dl RDW 14.1 H (11.5-14.0) % Plt Count 197 (150-450) K/mm3 MPV 10.7 (7.5-11.0) fl Gran % 87.2 H (36.0-66.0) % Eos # (Auto) 0.01 (0-0.5) Absolute Lymphs (auto) 1.08 (1.0-4.6) Absolute Monos (auto) 0.64 (0.0-1.3) Lymphocytes % 7.9 L (24.0-44.0) % Monocytes % 4.7 (0.0-12.0) % Eosinophils % 0.1 (0.00-5.0) % Basophils % 0.1 (0.0-0.4) % Absolute Granulocytes 11.87 H (1.4-6.9) Basophils # 0.02 (0-0.4) PT 21.9 H (9.95-12.35) SECONDS INR 1.93 (0.8-3.0) APTT 31.1 (25.3-37.0) SECONDS Sodium 133 L (137-145) mmol/L Potassium 4.0 (3.5-5.1) mmol/L Chloride 95 L (98-107) mmol/L Carbon Dioxide 27 (22-30) mmol/L Anion Gap 15.1 H (5-15) MEQ/L BUN 25 H (7-17) mg/dL Creatinine 0.95 (0.52-1.04) mg/dL Estimated GFR 59.4 ML/MIN Glucose 322 H (74-106) mg/dL POC Glucometer (74 to 106) mg/dL Hemoglobin A1c (4.5-6.0) % Lactic Acid (0.4-2.0) Calcium 9.1 (8.4-10.2) mg/dL Total Bilirubin 1.10 (0.2-1.3) mg/dL AST 18 (14-36) U/L ALT 16 (0-35) U/L Alkaline Phosphatase 80 (38-126) U/L Troponin I (0.000-0.034) ng/mL NT-Pro-B Natriuret Pep (0-1800) pg/mL Serum Total Protein 7.6 (6.3-8.2) g/dL Albumin 4.0 (3.5-5.0) g/dL Prealbumin (17.6-36.0) mg/dL Triglycerides (30-150) mg/dL Cholesterol (50-200) mg/dL LDL Cholesterol (30-100) mg/dL HDL Cholesterol (40-60) mg/dL Heart Disease Risk Ratio Urine Color (YELLOW) Urine Appearance (CLEAR) Urine pH (5-6) Ur Specific [place] (1.005-1.025) Urine Protein (Negative) Urine Ketones (NEGATIVE) Urine Blood (0-5) Jayme/ul Urine Nitrite (NEGATIVE) Urine Bilirubin (NEGATIVE) Urine Urobilinogen (0-1) mg/dL Ur Leukocyte Esterase (NEGATIVE) Urine WBC (Auto) (0-5) /HPF Urine RBC (Auto) (0-2) /HPF U Epithel Cells (Auto) (FEW) /HPF Urine Bacteria (Auto) (NEGATIVE) /HPF Amorphous Crystals (NEGATIVE) /HPF Granular Casts (Auto) (NEGATIVE) /LPF Urine Mucus (Auto) (NEGATIVE) /HPF Urine Culture Reflexed (NO) Urine Glucose (NEGATIVE) mg/dL 04/09/20 04/09/20 04/09/20 Range/Units 13:45 14:10 14:19 WBC (4.0-10.5) K/mm3 RBC (4.1-5.4) M/mm3 Hgb (12.0-16.0) gm/dl Hct (35-47) % MCV (78-100) fl MCH (26-32) pg MCHC (32-36) g/dl RDW (11.5-14.0) % Plt Count (150-450) K/mm3 MPV (7.5-11.0) fl Gran % (36.0-66.0) % Eos # (Auto) (0-0.5) Absolute Lymphs (auto) (1.0-4.6) Absolute Monos (auto) (0.0-1.3) Lymphocytes % (24.0-44.0) % Monocytes % (0.0-12.0) % Eosinophils % (0.00-5.0) % Basophils % (0.0-0.4) % Absolute Granulocytes (1.4-6.9) Basophils # (0-0.4) PT (9.95-12.35) SECONDS INR (0.8-3.0) APTT (25.3-37.0) SECONDS Sodium (137-145) mmol/L Potassium (3.5-5.1) mmol/L Chloride (98-107) mmol/L Carbon Dioxide (22-30) mmol/L Anion Gap (5-15) MEQ/L BUN (7-17) mg/dL Creatinine (0.52-1.04) mg/dL Estimated GFR ML/MIN Glucose (74-106) mg/dL POC Glucometer (74 to 106) mg/dL Hemoglobin A1c 9.79 H (4.5-6.0) % Lactic Acid (0.4-2.0) Calcium (8.4-10.2) mg/dL Total Bilirubin (0.2-1.3) mg/dL AST (14-36) U/L ALT (0-35) U/L Alkaline Phosphatase (38-126) U/L Troponin I (0.000-0.034) ng/mL NT-Pro-B Natriuret Pep 4300 H (0-1800) pg/mL Serum Total Protein (6.3-8.2) g/dL Albumin (3.5-5.0) g/dL Prealbumin (17.6-36.0) mg/dL Triglycerides (30-150) mg/dL Cholesterol (50-200) mg/dL LDL Cholesterol (30-100) mg/dL HDL Cholesterol (40-60) mg/dL Heart Disease Risk Ratio Urine Color YELLOW (YELLOW) Urine Appearance SLIGHTLY CLOUDY (CLEAR) Urine pH 5.0 (5-6) Ur Specific [place] 1.021 (1.005-1.025) Urine Protein 30 (Negative) Urine Ketones NEGATIVE (NEGATIVE) Urine Blood NEGATIVE (0-5) Jayme/ul Urine Nitrite NEGATIVE (NEGATIVE) Urine Bilirubin NEGATIVE (NEGATIVE) Urine Urobilinogen NEGATIVE (0-1) mg/dL Ur Leukocyte Esterase NEGATIVE (NEGATIVE) Urine WBC (Auto) 3-5 (0-5) /HPF Urine RBC (Auto) 0-2 (0-2) /HPF U Epithel Cells (Auto) NONE (FEW) /HPF Urine Bacteria (Auto) RARE (NEGATIVE) /HPF Amorphous Crystals FEW (NEGATIVE) /HPF Granular Casts (Auto) 5-10 (NEGATIVE) /LPF Urine Mucus (Auto) SLIGHT (NEGATIVE) /HPF Urine Culture Reflexed NO (NO) Urine Glucose >=500 (NEGATIVE) mg/dL 04/09/20 04/09/20 04/09/20 Range/Units 16:32 16:57 19:04 WBC (4.0-10.5) K/mm3 RBC (4.1-5.4) M/mm3 Hgb (12.0-16.0) gm/dl Hct (35-47) % MCV (78-100) fl MCH (26-32) pg MCHC (32-36) g/dl RDW (11.5-14.0) % Plt Count (150-450) K/mm3 MPV (7.5-11.0) fl Gran % (36.0-66.0) % Eos # (Auto) (0-0.5) Absolute Lymphs (auto) (1.0-4.6) Absolute Monos (auto) (0.0-1.3) Lymphocytes % (24.0-44.0) % Monocytes % (0.0-12.0) % Eosinophils % (0.00-5.0) % Basophils % (0.0-0.4) % Absolute Granulocytes (1.4-6.9) Basophils # (0-0.4) PT (9.95-12.35) SECONDS INR (0.8-3.0) APTT (25.3-37.0) SECONDS Sodium (137-145) mmol/L Potassium (3.5-5.1) mmol/L Chloride (98-107) mmol/L Carbon Dioxide (22-30) mmol/L Anion Gap (5-15) MEQ/L BUN (7-17) mg/dL Creatinine (0.52-1.04) mg/dL Estimated GFR ML/MIN Glucose (74-106) mg/dL POC Glucometer 247 H (74 to 106) mg/dL Hemoglobin A1c (4.5-6.0) % Lactic Acid 2.4 H (0.4-2.0) Calcium (8.4-10.2) mg/dL Total Bilirubin (0.2-1.3) mg/dL AST (14-36) U/L ALT (0-35) U/L Alkaline Phosphatase (38-126) U/L Troponin I < 0.012 (0.000-0.034) ng/mL NT-Pro-B Natriuret Pep (0-1800) pg/mL Serum Total Protein (6.3-8.2) g/dL Albumin (3.5-5.0) g/dL Prealbumin (17.6-36.0) mg/dL Triglycerides (30-150) mg/dL Cholesterol (50-200) mg/dL LDL Cholesterol (30-100) mg/dL HDL Cholesterol (40-60) mg/dL Heart Disease Risk Ratio Urine Color (YELLOW) Urine Appearance (CLEAR) Urine pH (5-6) Ur Specific [place] (1.005-1.025) Urine Protein (Negative) Urine Ketones (NEGATIVE) Urine Blood (0-5) Jayme/ul Urine Nitrite (NEGATIVE) Urine Bilirubin (NEGATIVE) Urine Urobilinogen (0-1) mg/dL Ur Leukocyte Esterase (NEGATIVE) Urine WBC (Auto) (0-5) /HPF Urine RBC (Auto) (0-2) /HPF U Epithel Cells (Auto) (FEW) /HPF Urine Bacteria (Auto) (NEGATIVE) /HPF Amorphous Crystals (NEGATIVE) /HPF Granular Casts (Auto) (NEGATIVE) /LPF Urine Mucus (Auto) (NEGATIVE) /HPF Urine Culture Reflexed (NO) Urine Glucose (NEGATIVE) mg/dL 04/09/20 04/09/20 04/09/20 Range/Units 19:04 20:57 22:16 WBC (4.0-10.5) K/mm3 RBC (4.1-5.4) M/mm3 Hgb (12.0-16.0) gm/dl Hct (35-47) % MCV (78-100) fl MCH (26-32) pg MCHC (32-36) g/dl RDW (11.5-14.0) % Plt Count (150-450) K/mm3 MPV (7.5-11.0) fl Gran % (36.0-66.0) % Eos # (Auto) (0-0.5) Absolute Lymphs (auto) (1.0-4.6) Absolute Monos (auto) (0.0-1.3) Lymphocytes % (24.0-44.0) % Monocytes % (0.0-12.0) % Eosinophils % (0.00-5.0) % Basophils % (0.0-0.4) % Absolute Granulocytes (1.4-6.9) Basophils # (0-0.4) PT (9.95-12.35) SECONDS INR (0.8-3.0) APTT (25.3-37.0) SECONDS Sodium (137-145) mmol/L Potassium (3.5-5.1) mmol/L Chloride (98-107) mmol/L Carbon Dioxide (22-30) mmol/L Anion Gap (5-15) MEQ/L BUN (7-17) mg/dL Creatinine (0.52-1.04) mg/dL Estimated GFR ML/MIN Glucose (74-106) mg/dL POC Glucometer 368 H (74 to 106) mg/dL Hemoglobin A1c (4.5-6.0) % Lactic Acid (0.4-2.0) Calcium (8.4-10.2) mg/dL Total Bilirubin (0.2-1.3) mg/dL AST (14-36) U/L ALT (0-35) U/L Alkaline Phosphatase (38-126) U/L Troponin I < 0.012 (0.000-0.034) ng/mL NT-Pro-B Natriuret Pep (0-1800) pg/mL Serum Total Protein (6.3-8.2) g/dL Albumin (3.5-5.0) g/dL Prealbumin 14.00 L (17.6-36.0) mg/dL Triglycerides (30-150) mg/dL Cholesterol (50-200) mg/dL LDL Cholesterol (30-100) mg/dL HDL Cholesterol (40-60) mg/dL Heart Disease Risk Ratio Urine Color (YELLOW) Urine Appearance (CLEAR) Urine pH (5-6) Ur Specific [place] (1.005-1.025) Urine Protein (Negative) Urine Ketones (NEGATIVE) Urine Blood (0-5) Jayme/ul Urine Nitrite (NEGATIVE) Urine Bilirubin (NEGATIVE) Urine Urobilinogen (0-1) mg/dL Ur Leukocyte Esterase (NEGATIVE) Urine WBC (Auto) (0-5) /HPF Urine RBC (Auto) (0-2) /HPF U Epithel Cells (Auto) (FEW) /HPF Urine Bacteria (Auto) (NEGATIVE) /HPF Amorphous Crystals (NEGATIVE) /HPF Granular Casts (Auto) (NEGATIVE) /LPF Urine Mucus (Auto) (NEGATIVE) /HPF Urine Culture Reflexed (NO) Urine Glucose (NEGATIVE) mg/dL 04/10/20 04/10/20 04/10/20 Range/Units 05:50 05:50 05:50 WBC 10.1 (4.0-10.5) K/mm3 RBC 3.39 L (4.1-5.4) M/mm3 Hgb 10.1 L (12.0-16.0) gm/dl Hct 32.1 L (35-47) % MCV 94.7 (78-100) fl MCH 29.8 (26-32) pg MCHC 31.5 L (32-36) g/dl RDW 14.6 H (11.5-14.0) % Plt Count 182 (150-450) K/mm3 MPV 10.8 (7.5-11.0) fl Gran % 83.3 H (36.0-66.0) % Eos # (Auto) 0.04 (0-0.5) Absolute Lymphs (auto) 0.86 L (1.0-4.6) Absolute Monos (auto) 0.78 (0.0-1.3) Lymphocytes % 8.5 L (24.0-44.0) % Monocytes % 7.7 (0.0-12.0) % Eosinophils % 0.4 (0.00-5.0) % Basophils % 0.1 (0.0-0.4) % Absolute Granulocytes 8.40 H (1.4-6.9) Basophils # 0.01 (0-0.4) PT (9.95-12.35) SECONDS INR (0.8-3.0) APTT (25.3-37.0) SECONDS Sodium 132 L (137-145) mmol/L Potassium 3.7 (3.5-5.1) mmol/L Chloride 97 L (98-107) mmol/L Carbon Dioxide 26 (22-30) mmol/L Anion Gap 12.2 (5-15) MEQ/L BUN 24 H (7-17) mg/dL Creatinine 0.73 (0.52-1.04) mg/dL Estimated GFR > 60.0 ML/MIN Glucose 215 H (74-106) mg/dL POC Glucometer (74 to 106) mg/dL Hemoglobin A1c (4.5-6.0) % Lactic Acid (0.4-2.0) Calcium 8.6 (8.4-10.2) mg/dL Total Bilirubin (0.2-1.3) mg/dL AST (14-36) U/L ALT (0-35) U/L Alkaline Phosphatase (38-126) U/L Troponin I (0.000-0.034) ng/mL NT-Pro-B Natriuret Pep (0-1800) pg/mL Serum Total Protein (6.3-8.2) g/dL Albumin (3.5-5.0) g/dL Prealbumin (17.6-36.0) mg/dL Triglycerides 183 H (30-150) mg/dL Cholesterol 116 (50-200) mg/dL LDL Cholesterol 55 (30-100) mg/dL HDL Cholesterol 22 L (40-60) mg/dL Heart Disease Risk Ratio 5.3 Urine Color (YELLOW) Urine Appearance (CLEAR) Urine pH (5-6) Ur Specific [place] (1.005-1.025) Urine Protein (Negative) Urine Ketones (NEGATIVE) Urine Blood (0-5) Jayme/ul Urine Nitrite (NEGATIVE) Urine Bilirubin (NEGATIVE) Urine Urobilinogen (0-1) mg/dL Ur Leukocyte Esterase (NEGATIVE) Urine WBC (Auto) (0-5) /HPF Urine RBC (Auto) (0-2) /HPF U Epithel Cells (Auto) (FEW) /HPF Urine Bacteria (Auto) (NEGATIVE) /HPF Amorphous Crystals (NEGATIVE) /HPF Granular Casts (Auto) (NEGATIVE) /LPF Urine Mucus (Auto) (NEGATIVE) /HPF Urine Culture Reflexed (NO) Urine Glucose (NEGATIVE) mg/dL 04/10/20 Range/Units 06:32 WBC (4.0-10.5) K/mm3 RBC (4.1-5.4) M/mm3 Hgb (12.0-16.0) gm/dl Hct (35-47) % MCV (78-100) fl MCH (26-32) pg MCHC (32-36) g/dl RDW (11.5-14.0) % Plt Count (150-450) K/mm3 MPV (7.5-11.0) fl Gran % (36.0-66.0) % Eos # (Auto) (0-0.5) Absolute Lymphs (auto) (1.0-4.6) Absolute Monos (auto) (0.0-1.3) Lymphocytes % (24.0-44.0) % Monocytes % (0.0-12.0) % Eosinophils % (0.00-5.0) % Basophils % (0.0-0.4) % Absolute Granulocytes (1.4-6.9) Basophils # (0-0.4) PT (9.95-12.35) SECONDS INR (0.8-3.0) APTT (25.3-37.0) SECONDS Sodium (137-145) mmol/L Potassium (3.5-5.1) mmol/L Chloride (98-107) mmol/L Carbon Dioxide (22-30) mmol/L Anion Gap (5-15) MEQ/L BUN (7-17) mg/dL Creatinine (0.52-1.04) mg/dL Estimated GFR ML/MIN Glucose (74-106) mg/dL POC Glucometer 196 H (74 to 106) mg/dL Hemoglobin A1c (4.5-6.0) % Lactic Acid (0.4-2.0) Calcium (8.4-10.2) mg/dL Total Bilirubin (0.2-1.3) mg/dL AST (14-36) U/L ALT (0-35) U/L Alkaline Phosphatase (38-126) U/L Troponin I (0.000-0.034) ng/mL NT-Pro-B Natriuret Pep (0-1800) pg/mL Serum Total Protein (6.3-8.2) g/dL Albumin (3.5-5.0) g/dL Prealbumin (17.6-36.0) mg/dL Triglycerides (30-150) mg/dL Cholesterol (50-200) mg/dL LDL Cholesterol (30-100) mg/dL HDL Cholesterol (40-60) mg/dL Heart Disease Risk Ratio Urine Color (YELLOW) Urine Appearance (CLEAR) Urine pH (5-6) Ur Specific [place] (1.005-1.025) Urine Protein (Negative) Urine Ketones (NEGATIVE) Urine Blood (0-5) Jayme/ul Urine Nitrite (NEGATIVE) Urine Bilirubin (NEGATIVE) Urine Urobilinogen (0-1) mg/dL Ur Leukocyte Esterase (NEGATIVE) Urine WBC (Auto) (0-5) /HPF Urine RBC (Auto) (0-2) /HPF U Epithel Cells (Auto) (FEW) /HPF Urine Bacteria (Auto) (NEGATIVE) /HPF Amorphous Crystals (NEGATIVE) /HPF Granular Casts (Auto) (NEGATIVE) /LPF Urine Mucus (Auto) (NEGATIVE) /HPF Urine Culture Reflexed (NO) Urine Glucose (NEGATIVE) mg/dL Radiology Exams: Radiology Procedures Category Date Time Status CHEST 1 VIEW (PORTABLE) Stat Exams 04/09/20 13:40 Completed VENOUS UNILAT/LIMITED EXTREMIT [US] Stat Exams 04/09/20 15:45 Completed Assessment/Plan (1) Cellulitis Current Visit: Yes Status: Acute Assessment & Plan: continue vanc Code(s): L03.90 - CELLULITIS, UNSPECIFIED (2) Atrial fibrillation with RVR Current Visit: Yes Status: Acute Assessment & Plan: rate controlled on po meds, resolved Code(s): I48.91 - UNSPECIFIED ATRIAL FIBRILLATION (3) Diabetes mellitus Current Visit: No Status: Acute Code(s): E11.9 - TYPE 2 DIABETES MELLITUS WITHOUT COMPLICATIONS
[2020-04-10] MEDS: Lopressor 50 MG PO SCH ×2 (09:54→22:07)
[2020-04-10] MEDS: Imdur 60MG PO SCH (09:54)
[2020-04-10] MEDS: ECOTRIN 81 MG PO SCH (09:54)
[2020-04-10] MEDS: Ditropan 5 MG PO SCH ×2 (09:54→22:07)
[2020-04-10] MEDS: Lasix 40 MG PO SCH (09:54)
[2020-04-10] MEDS: Protonix 40MG Tablet PO SCH (09:54)
[2020-04-10] MEDS: BUSPAR 5 MG PO SCH ×2 (09:54→22:07)
[2020-04-10] MEDS: CLARITIN 10 MG PO SCH (09:55)
[2020-04-10] MEDS: Vitamin B-12 500 MCG PO SCH (09:55)
[2020-04-10] MEDS: THERAGRAN MULTIVITAMIN PO SCH (09:55)
[2020-04-10] MEDS: MAG-OX 400 PO SCH (09:55)
[2020-04-10] MEDS: VITAMIN D PO SCH (09:55)
[2020-04-10] MEDS: FEOSOL 325 MG PO SCH (09:55)
[2020-04-10] MEDS ORDERED: NON-FORMULARY ITEM (Omeprazole [Omeprazole] 20 MG) PO SCH (10:00)
[2020-04-10] MEDS ORDERED: SOLIFENACIN SUCCINATE 5 MG PO SCH (10:00)
[2020-04-10] MEDS ORDERED: FUROSEMIDE 80 MG PO SCH (10:00)
[2020-04-10] MEDS ORDERED: POTASSIUM GLUCONATE 99 MG PO SCH (10:00)
[2020-04-10] MEDS ORDERED: NON-FORMULARY ITEM (Magnesium [Magnesium] 250 MG) PO SCH (10:00)
[2020-04-10] MEDS ORDERED: CHOLECALCIFEROL PO SCH (10:00)
[2020-04-10] MEDS: xanAX 0.25 MG PO PRN ×3 (10:03→22:07)
[2020-04-10] MEDS: Sodium Chloride 0.9% 10 ML FLUSH Syringe IV SCH ×3 (10:11→22:08)
[2020-04-10] MEDS: XARELTO 10 MG TABLET PO SCH (17:05)
[2020-04-10] MEDS: VANCOMYCIN 1 GRAM/200 ML BAG 1 GM/200 ML PIGGYBACK IV SCH (17:05)
[2020-04-10] MEDS: HUMALOG SQ PRN (22:11)
[2020-04-11] MEDS: TYLENOL 325 MG PO PRN ×4 (01:00→22:26)
[2020-04-11] MEDS: Sodium Chloride 0.9% 10 ML FLUSH Syringe IV SCH ×3 (06:48→22:27)
[2020-04-11] MEDS: ECOTRIN 81 MG PO SCH (09:33)
[2020-04-11] MEDS: VITAMIN D PO SCH (09:33)
[2020-04-11] MEDS: Ditropan 5 MG PO SCH ×2 (09:34→22:27)
[2020-04-11] MEDS: FEOSOL 325 MG PO SCH (09:34)
[2020-04-11] MEDS: Vitamin B-12 500 MCG PO SCH (09:34)
[2020-04-11] MEDS: BUSPAR 5 MG PO SCH ×2 (09:34→22:27)
[2020-04-11] MEDS: Imdur 60MG PO SCH (09:34)
[2020-04-11] MEDS: Lasix 40 MG PO SCH (09:34)
[2020-04-11] MEDS: MAG-OX 400 PO SCH (09:34)
[2020-04-11] MEDS: CLARITIN 10 MG PO SCH (09:34)
[2020-04-11] MEDS: Protonix 40MG Tablet PO SCH (09:34)
[2020-04-11] MEDS: THERAGRAN MULTIVITAMIN PO SCH (09:34)
[2020-04-11] MEDS: Lopressor 50 MG PO SCH ×2 (09:35→22:23)
[2020-04-11] MEDS: xanAX 0.25 MG PO PRN (09:39)
--- NOTE | 2020-04-11 11:24 | PCM.NOTE ---
Date and Time: 04/11/20 1122 Subjective Assessment: leg swelling, pain and redness is improving. patient very hard of hearing but denies chest pain or shortness of breath. heart rate has been elevated above 100 per nursing up to 130 this morning Objective Exam General Appearance: no apparent distress, alert Respiratory Exam: normal breath sounds, lungs clear, No respiratory distress Cardiovascular Exam: tachycardia, irregular Gastrointestinal/Abdomen Exam: soft, No tenderness, No mass Extremity Exam: other (improved swelling and erythema to LLE, still warmth and erythema to mid-anterior watkins) OBJECTIVE DATA Vital Signs: Vital Signs - 24 hr Temp Pulse Resp BP Pulse Ox 04/11/20 07:56 95 04/11/20 07:46 98.4 F 100 H 16 164/77 95 04/11/20 04:00 99.3 F 103 H 16 134/68 95 04/10/20 22:35 97.9 F 93 H 18 133/77 93 L 04/10/20 16:00 98.0 F 90 20 145/65 94 L 04/10/20 15:56 97 04/10/20 11:51 94 L 04/10/20 11:26 88 22 97/64 98 Pain Assessment - Last Documented Pain Intensity 5 Pain Scale Used FLACC Intake and Output: Intake & Output 04/08/20 04/09/20 04/10/20 04/11/20 11:59 11:59 11:59 11:59 Intake Total 1300 1280 Output Total 200 Balance 1100 1280 Weight 70.9 kg Lab Results: Lab Results-Last 24 Hours 04/10/20 04/10/20 04/11/20 Range/Units 17:00 22:06 07:35 POC Glucometer 216 H 303 H 297 H (74 to 106) mg/dL Radiology Exams: Radiology Procedures Category Date Time Status CHEST 1 VIEW (PORTABLE) Stat Exams 04/09/20 13:40 Completed VENOUS UNILAT/LIMITED EXTREMIT [US] Stat Exams 04/09/20 15:45 Completed Assessment/Plan (1) Cellulitis Current Visit: Yes Status: Acute Assessment & Plan: improving on vanc, likely home in the next day or two on po abx if heart rate is stable on increased metoprolol Code(s): L03.90 - CELLULITIS, UNSPECIFIED (2) Atrial fibrillation with RVR Current Visit: Yes Status: Acute Assessment & Plan: increase metoprolol from 50mg to 75mg bid Code(s): I48.91 - UNSPECIFIED ATRIAL FIBRILLATION (3) Diabetes mellitus Current Visit: No Status: Acute Code(s): E11.9 - TYPE 2 DIABETES MELLITUS WITHOUT COMPLICATIONS
[2020-04-11] MEDS ORDERED: HUMALOG SQ ONE ×2 (12:10→14:00)
[2020-04-11] MEDS ORDERED: Lantus Insulin SQ SCH (14:30)
[2020-04-11] MEDS: VANCOMYCIN 1 GRAM/200 ML BAG 1 GM/200 ML PIGGYBACK IV SCH (17:20)
[2020-04-11] MEDS: XARELTO 10 MG TABLET PO SCH (17:20)
[2020-04-11] MEDS: HUMALOG SQ PRN ×2 (17:21→23:58)
[2020-04-12 05:36] LABS: Hematocrit 28.6 % (35-47); Hemoglobin 9.2 gm/dl (12.0-16.0); Mean Cell Volume 91.4 fl (78-100); Mean Corpuscular Hemoglobin 29.4 pg (26-32); Mean Corpuscular Hgb Concent. 32.2 g/dl (32-36); Mean Platelet Volume 10.8 fl (7.5-11.0); Platelet Count 252 K/mm3 (150-450); Red Blood Count 3.13 M/mm3 (4.1-5.4); Red Cell Distribution Width 14.5 % (11.5-14.0); White Blood Count 9.8 K/mm3 (4.0-10.5)
[2020-04-12 05:52] LABS: ANION GAP 9.4 MEQ/L (5-15); Calcium 8.2 mg/dL (8.4-10.2); Creatinine 1 0.95 mg/dL (0.52-1.04); EST GLOMERULAR FILTRATION RATE 59.4 ML/MIN; Potassium 3.3 mmol/L (3.5-5.1)
[2020-04-12 06:33] LABS: ANISOCYTOSIS 1+; BAND 1 % (0.0-2.0); Eosinophil 4 % (0.00-3.0); Lymphocytes 17 % (24-44); Monocyte 7 % (0.0-12.0); Neutrophils 71 % (36.0-66.0); Platelet Estimate NORMAL (NORMAL); Total Cells Counted 100; Toxic Granulation 1+
[2020-04-12] MEDS: HUMALOG SQ PRN ×4 (08:17→21:49)
[2020-04-12] MEDS: TYLENOL 325 MG PO PRN ×3 (08:17→23:55)
--- NOTE | 2020-04-12 09:15 | PCM.NOTE ---
Date and Time: 04/12/20909 Subjective Assessment: Pt is oriented and alert, in a chair eating breakfast this morning. She c/o some L knee pain; just received tylenol. Is worried about how she will get around at home. Lives with her grandson. Stated no one in her family has been in to see her; I explained COVID visitor restrictions. Complains that her mouth hurts. - Review of Systems Constitutional: No Fever Abdominal/Gastrointestinal: No Vomiting Musculoskeletal: Joint Pain Objective Exam General Appearance: no apparent distress, alert Neurologic Exam: oriented x 3, cooperative Skin Exam: warm, dry, other (see below), No rash Ears, Nose, Throat Exam: moist mucous membranes, No pharynx normal (mild posterior erythema, no exudates) Neck Exam: normal inspection Respiratory Exam: normal breath sounds, lungs clear, No crackles/rales, No rhonchi, No wheezing Cardiovascular Exam: regular rate/rhythm, normal heart sounds, No murmur Extremity Exam: other (LLE inferiorly/anteriorly mildly erythematous. 1+ pitting edema to knee.) Back Exam: normal inspection, No rash OBJECTIVE DATA Vital Signs: Vital Signs - 24 hr Temp Pulse Resp BP Pulse Ox 04/12/20 08:00 98.2 F 86 16 136/69 96 04/12/20 07:22 94 L 04/12/20 04:00 97.9 F 79 19 125/60 95 04/12/20 00:00 99.0 F 102 H 18 141/66 94 L 04/11/20 20:17 94 L 04/11/20 20:00 98.1 F 88 18 120/58 94 L 04/11/20 16:00 98.2 F 82 18 130/67 97 04/11/20 12:00 98.2 F 78 16 119/78 95 Pain Assessment - Last Documented Pain Intensity 6 Pain Scale Used 0-10 Pain Scale Intake and Output: Intake & Output 04/09/20 04/10/20 04/11/20 04/12/20 11:59 11:59 11:59 11:59 Intake Total 1300 1280 1100 Output Total 200 Balance 1100 1280 1100 Weight 70.9 kg 70.6 kg Lab Results: Lab Results-Last 24 Hours 04/11/20 04/11/20 04/11/20 Range/Units 11:43 11:54 14:20 WBC (4.0-10.5) K/mm3 RBC (4.1-5.4) M/mm3 Hgb (12.0-16.0) gm/dl Hct (35-47) % MCV (78-100) fl MCH (26-32) pg MCHC (32-36) g/dl RDW (11.5-14.0) % Plt Count (150-450) K/mm3 MPV (7.5-11.0) fl Segmented Neutrophils (36.0-66.0) % Band Neutrophils (0.0-2.0) % Lymphocytes (Manual) (24-44) % Monocytes (Manual) (0.0-12.0) % Eosinophils (Manual) (0.00-3.0) % Toxic Granulation Platelet Estimate (NORMAL) RBC Morphology Anisocytosis Sodium (137-145) mmol/L Potassium (3.5-5.1) mmol/L Chloride (98-107) mmol/L Carbon Dioxide (22-30) mmol/L Anion Gap (5-15) MEQ/L BUN (7-17) mg/dL Creatinine (0.52-1.04) mg/dL Estimated GFR ML/MIN Glucose 435 H (74-106) mg/dL POC Glucometer 506 H* 522 H* (50 to 500) mg/dL Calcium (8.4-10.2) mg/dL 04/11/20 04/11/20 04/11/20 Range/Units 16:36 20:58 23:49 WBC (4.0-10.5) K/mm3 RBC (4.1-5.4) M/mm3 Hgb (12.0-16.0) gm/dl Hct (35-47) % MCV (78-100) fl MCH (26-32) pg MCHC (32-36) g/dl RDW (11.5-14.0) % Plt Count (150-450) K/mm3 MPV (7.5-11.0) fl Segmented Neutrophils (36.0-66.0) % Band Neutrophils (0.0-2.0) % Lymphocytes (Manual) (24-44) % Monocytes (Manual) (0.0-12.0) % Eosinophils (Manual) (0.00-3.0) % Toxic Granulation Platelet Estimate (NORMAL) RBC Morphology Anisocytosis Sodium (137-145) mmol/L Potassium (3.5-5.1) mmol/L Chloride (98-107) mmol/L Carbon Dioxide (22-30) mmol/L Anion Gap (5-15) MEQ/L BUN (7-17) mg/dL Creatinine (0.52-1.04) mg/dL Estimated GFR ML/MIN Glucose (74-106) mg/dL POC Glucometer 324 H 421 H 372 H (50 to 500) mg/dL Calcium (8.4-10.2) mg/dL 04/12/20 04/12/20 04/12/20 Range/Units 04:37 04:37 07:31 WBC 9.8 (4.0-10.5) K/mm3 RBC 3.13 L (4.1-5.4) M/mm3 Hgb 9.2 L (12.0-16.0) gm/dl Hct 28.6 L (35-47) % MCV 91.4 (78-100) fl MCH 29.4 (26-32) pg MCHC 32.2 (32-36) g/dl RDW 14.5 H (11.5-14.0) % Plt Count 252 D (150-450) K/mm3 MPV 10.8 (7.5-11.0) fl Segmented Neutrophils 71 H (36.0-66.0) % Band Neutrophils 1 (0.0-2.0) % Lymphocytes (Manual) 17 L (24-44) % Monocytes (Manual) 7 (0.0-12.0) % Eosinophils (Manual) 4 H (0.00-3.0) % Toxic Granulation 1+ Platelet Estimate NORMAL (NORMAL) RBC Morphology ABNORMAL Anisocytosis 1+ Sodium 134 L (137-145) mmol/L Potassium 3.3 L (3.5-5.1) mmol/L Chloride 99 (98-107) mmol/L Carbon Dioxide 29 (22-30) mmol/L Anion Gap 9.4 (5-15) MEQ/L BUN 27 H (7-17) mg/dL Creatinine 0.95 (0.52-1.04) mg/dL Estimated GFR 59.4 ML/MIN Glucose 285 H (74-106) mg/dL POC Glucometer 255 H (50 to 500) mg/dL Calcium 8.2 L (8.4-10.2) mg/dL Assessment/Plan (1) Cellulitis Current Visit: Yes Status: Acute Qualifiers: Site of cellulitis: extremity Site of cellulitis of extremity: lower extremity Laterality: left Qualified Code(s): L03.116 - Cellulitis of left lower limb Assessment & Plan: On vancomycin day #4. Improved per pt and RN. Likely home tomorrow on po antibiotics. Code(s): L03.90 - CELLULITIS, UNSPECIFIED (2) Atrial fibrillation with RVR Current Visit: Yes Status: Resolved Assessment & Plan: Chronic afib. Rate is currently controlled on home metoprolol. Code(s): I48.91 - UNSPECIFIED ATRIAL FIBRILLATION (3) Diabetes mellitus Current Visit: No Status: Chronic Qualifiers: Diabetes mellitus type: type 2 Diabetes mellitus halfway insulin use: without halfway use Diabetes mellitus complication status: with kidney complications Diabetes mellitus complication detail: with chronic kidney disease Chronic kidney disease stage: stage 2 (mild) Qualified Code(s): E11.22 - Type 2 diabetes mellitus with diabetic chronic kidney disease; N18.2 - Chronic kidney disease, stage 2 (mild) Code(s): E11.9 - TYPE 2 DIABETES MELLITUS WITHOUT COMPLICATIONS (4) HTN (hypertension) Current Visit: No Status: Acute Qualifiers: Hypertension type: essential hypertension Qualified Code(s): I10 - Essential (primary) hypertension Code(s): I10 - ESSENTIAL (PRIMARY) HYPERTENSION
[2020-04-12] MEDS: Glucophage 500 MG PO SCH ×3 (10:00→21:49)
[2020-04-12] MEDS: MAG-OX 400 PO SCH (10:00)
[2020-04-12] MEDS: ECOTRIN 81 MG PO SCH (10:00)
[2020-04-12] MEDS: Ditropan 5 MG PO SCH ×2 (10:01→21:48)
[2020-04-12] MEDS: Vitamin B-12 500 MCG PO SCH (10:01)
[2020-04-12] MEDS: Lasix 40 MG PO SCH (10:01)
[2020-04-12] MEDS: VITAMIN D PO SCH (10:01)
[2020-04-12] MEDS: CLARITIN 10 MG PO SCH (10:01)
[2020-04-12] MEDS: BUSPAR 5 MG PO SCH ×2 (10:01→21:49)
[2020-04-12] MEDS: THERAGRAN MULTIVITAMIN PO SCH (10:01)
[2020-04-12] MEDS: Lopressor 50 MG PO SCH ×2 (10:02→21:48)
[2020-04-12] MEDS: Imdur 60MG PO SCH (10:02)
[2020-04-12] MEDS: Protonix 40MG Tablet PO SCH (10:02)
[2020-04-12] MEDS: FEOSOL 325 MG PO SCH (10:02)
[2020-04-12] MEDS: Amaryl 2 MG PO SCH ×2 (10:09→21:48)
[2020-04-12] MEDS: Sodium Chloride 0.9% 10 ML FLUSH Syringe IV SCH ×2 (14:00→21:54)
[2020-04-12] MEDS: VANCOMYCIN 1 GRAM/200 ML BAG 1 GM/200 ML PIGGYBACK IV SCH (17:42)
[2020-04-12] MEDS: XARELTO 10 MG TABLET PO SCH (17:42)
[2020-04-12] MEDS: xanAX 0.25 MG PO PRN (21:48)
[2020-04-13] MEDS: Sodium Chloride 0.9% 10 ML FLUSH Syringe IV SCH ×3 (05:24→22:18)
[2020-04-13] MEDS: xanAX 0.25 MG PO PRN (06:55)
--- NOTE | 2020-04-13 08:52 | PCM.NOTE ---
Date and Time: 04/13/20 0850 Subjective Assessment: Pt is 2 assist. No complaints today. - Review of Systems Constitutional: No Fever Abdominal/Gastrointestinal: No Vomiting Objective Exam General Appearance: no apparent distress, alert, other (hard of hearing) Neurologic Exam: cooperative, normal mood/affect Respiratory Exam: normal breath sounds, lungs clear, No crackles/rales, No rhonchi, No wheezing Cardiovascular Exam: regular rate/rhythm, normal heart sounds, No murmur Extremity Exam: other (RLE with erythema anteior distal portion. 1+ pitting edema to knee) OBJECTIVE DATA Vital Signs: Vital Signs - 24 hr Temp Pulse Resp BP Pulse Ox 04/13/20 07:47 98.1 F 61 18 158/74 94 L 04/13/20 07:29 94 L 04/13/20 04:00 98.6 F 89 24 136/63 94 L 04/13/20 00:00 99.1 F 78 22 161/65 94 L 04/12/20 20:00 97.7 F 91 H 25 H 134/67 95 04/12/20 18:31 91 L 04/12/20 16:00 97.9 F 92 H 16 139/63 96 04/12/20 12:00 97.9 F 81 16 115/58 95 Pain Assessment - Last Documented Pain Intensity 0 Pain Scale Used 0-10 Pain Scale Intake and Output: Intake & Output 04/10/20 04/11/20 04/12/20 04/13/20 11:59 11:59 11:59 11:59 Intake Total 1300 1280 1480 1020 Output Total 200 Balance 1100 1280 1480 1020 Weight 70.9 kg 70.6 kg 70.4 kg Lab Results: Lab Results-Last 24 Hours 04/12/20 04/12/20 04/12/20 Range/Units 11:32 16:07 17:30 POC Glucometer 458 H 341 H (74 to 106) mg/dL Vancomycin Trough 7.62 L (10-20) ug/mL 04/12/20 04/13/20 Range/Units 21:41 07:23 POC Glucometer 320 H 261 H (74 to 106) mg/dL Vancomycin Trough (10-20) ug/mL Assessment/Plan (1) Cellulitis Current Visit: Yes Status: Acute Qualifiers: Site of cellulitis: extremity Site of cellulitis of extremity: lower extremity Laterality: left Qualified Code(s): L03.116 - Cellulitis of left lower limb Assessment & Plan: on vancomycin day #5 Code(s): L03.90 - CELLULITIS, UNSPECIFIED (2) Atrial fibrillation with RVR Current Visit: Yes Status: Resolved Code(s): I48.91 - UNSPECIFIED ATRIAL FIBRILLATION (3) Diabetes mellitus Current Visit: No Status: Chronic Qualifiers: Diabetes mellitus type: type 2 Diabetes mellitus skilled nursing insulin use: without long term care administrator use Diabetes mellitus complication status: with kidney complications Diabetes mellitus complication detail: with chronic kidney disease Chronic kidney disease stage: stage 2 (mild) Qualified Code(s): E11.22 - Type 2 diabetes mellitus with diabetic chronic kidney disease; N18.2 - Chronic kidney disease, stage 2 (mild) Assessment & Plan: restarted home meds yesterday Code(s): E11.9 - TYPE 2 DIABETES MELLITUS WITHOUT COMPLICATIONS (4) HTN (hypertension) Current Visit: No Status: Acute Qualifiers: Hypertension type: essential hypertension Qualified Code(s): I10 - Essential (primary) hypertension Code(s): I10 - ESSENTIAL (PRIMARY) HYPERTENSION (5) Muscular deconditioning Current Visit: Yes Status: Acute Assessment & Plan: Pt will need rehab stay Code(s): R29.898 - OTH SYMPTOMS AND SIGNS INVOLVING THE MUSCULOSKELETAL SYSTEM
[2020-04-13] MEDS: Miralax Powder 17GM PACKET PO SCH (10:05)
[2020-04-13] MEDS: MAG-OX 400 PO SCH (10:05)
[2020-04-13] MEDS: Glucophage 500 MG PO SCH ×3 (10:06→22:11)
[2020-04-13] MEDS: CLARITIN 10 MG PO SCH (10:06)
[2020-04-13] MEDS: Imdur 60MG PO SCH (10:06)
[2020-04-13] MEDS: VITAMIN D PO SCH (10:06)
[2020-04-13] MEDS: Protonix 40MG Tablet PO SCH (10:07)
[2020-04-13] MEDS: Ditropan 5 MG PO SCH ×2 (10:07→22:11)
[2020-04-13] MEDS: BUSPAR 5 MG PO SCH ×2 (10:07→22:11)
[2020-04-13] MEDS: Lasix 40 MG PO SCH (10:07)
[2020-04-13] MEDS: THERAGRAN MULTIVITAMIN PO SCH (10:07)
[2020-04-13] MEDS: FEOSOL 325 MG PO SCH (10:07)
[2020-04-13] MEDS: Amaryl 2 MG PO SCH ×2 (10:07→22:11)
[2020-04-13] MEDS: Lopressor 50 MG PO SCH ×2 (10:07→22:11)
[2020-04-13] MEDS: Vitamin B-12 500 MCG PO SCH (10:07)
[2020-04-13] MEDS: ECOTRIN 81 MG PO SCH (10:07)
[2020-04-13] MEDS: Nystatin SUSPENSION 60 ML PO SCH ×4 (10:08→22:12)
[2020-04-13] MEDS: HUMALOG SQ PRN ×3 (11:56→22:12)
--- NOTE | 2020-04-13 12:01 | XRAY ---
Indication: Pain and swelling. Comparison: April 30, 2018. 3 view left knee again demonstrates osteopenia, total knee arthroplasty with intact articulation/prosthesis, nonspecific effusion, and scattered vascular calcifications. No other bony, articular, or soft tissue abnormalities.
--- NOTE | 2020-04-13 12:01 | XRAY ---
Indication: Cellulitis, difficulty walking, and erythema. Comparison: None 2 view left lower leg demonstrates osteopenia, total knee arthroplasty, minimal vascular calcifications, and ankle soft tissue swelling/edema. No other bony, articular, or soft tissue abnormalities.
[2020-04-13] MEDS: TYLENOL 325 MG PO PRN (12:34)
[2020-04-13] MEDS ORDERED: VANCOMYCIN 1.5 GRAM/300 ML BAG 1.5 GM/300 ML PIGGYBACK IV SCH (14:00)
[2020-04-13] MEDS: XARELTO 10 MG TABLET PO SCH (18:37)
[2020-04-14] MEDS: TYLENOL 325 MG PO PRN ×2 (05:25→12:09)
[2020-04-14] MEDS: Sodium Chloride 0.9% 10 ML FLUSH Syringe IV SCH ×2 (05:26→13:35)
[2020-04-14 07:49] VITALS: O2SAT 94
--- NOTE | 2020-04-14 08:52 | PCM.NOTE ---
Date and Time: 04/14/20848 Subjective Assessment: Pt eating well. Disappointed that she has to go to LTCF, but accepting. - Review of Systems Constitutional: No Fever Abdominal/Gastrointestinal: No Vomiting Objective Exam General Appearance: no apparent distress, alert Neurologic Exam: cooperative, normal mood/affect Skin Exam: warm, No rash Eye Exam: eyes nml inspection Neck Exam: normal inspection Respiratory Exam: normal breath sounds, lungs clear, No crackles/rales, No rhonchi, No wheezing Cardiovascular Exam: regular rate/rhythm, normal heart sounds, No murmur Extremity Exam: other (RLE 1+ edema to knee. Slight erythema anteriorly) OBJECTIVE DATA Vital Signs: Vital Signs - 24 hr Temp Pulse Resp BP Pulse Ox 04/14/20 07:48 98.5 F 84 16 152/67 94 L 04/14/20 07:40 91 L 04/14/20 04:00 99.2 F 92 H 24 134/63 92 L 04/14/20 00:00 84 17 04/13/20 20:00 98.3 F 97 H 18 132/64 95 04/13/20 19:44 95 04/13/20 16:00 98.4 F 90 16 164/74 94 L 04/13/20 11:48 98.3 F 97 H 16 141/70 93 L Pain Assessment - Last Documented Pain Intensity 3 Pain Scale Used [facility] Intake and Output: Intake & Output 04/11/20 04/12/20 04/13/20 04/14/20 11:59 11:59 11:59 11:59 Intake Total 1280 1480 1300 900 Balance 1280 1480 1300 900 Weight 70.6 kg 70.4 kg 71.2 kg Lab Results: Lab Results-Last 24 Hours 04/13/20 04/13/20 04/13/20 Range/Units 11:41 16:29 20:51 POC Glucometer 382 H 467 H 361 H (74 to 106) mg/dL 04/14/20 Range/Units 07:37 POC Glucometer 233 H (74 to 106) mg/dL Radiology Exams: Radiology Procedures Category Date Time Status KNEE (1 OR 2 VIEW) Urgent Exams 04/13/20 11:43 Completed LOWER LEG Urgent Exams 04/13/20 11:43 Completed Multi-Disciplinary Progress Notes: Multi-Disciplinary Progress Notes 04/13/20 17:15 Physical Therapy Note by Leena Baron PT. REPORTS CONT. L KNEE AND LL PN D/T CELLULITIS. REQUESTED L KNEE XRAY WHICH WAS - PT. HAD DIFFICULTY WB AND W/ KNEE ROM WELL W/ EDEMA. AM RX - PT. PERFROMED SUPINE TO SIT W/ MOD-MAX ASSIST X1; SIT TO STAND MOD ASSIST X 1. TOOK 2-3 STEPS TO TRANSFER W/ MIN-MOD ASSIST X 2. PERFORMED GENERAL LE STRENGTHENING X 10 REPS IN SITTING W/ PN NOTED W/ L KNEE FLEXION AND SLRS. PM RX - PT. PERFORMED LE EX'S X 10 REPS; SLIGHTLY LESS L KNEE PN W/ ROM AND SLRS. APPLIED FLEX-ALL ANALGESIC CREAM TO L KNEE WHICH PT. REPORTED DECREASED PN. PERFORMED SIT TO STAND FROM LOW RECLINER W/ MOD ASSIST X 1; AMBULATED 30' W/ ROLLATOR AND MIN ASSIST. NOTED SHORTENED STRIDE LENGTH AND DECREASED WB L L E. PT. REPORTED SHE FELT MUCH MORE COMFORTABLE W// ROLLATOR TIS IS WHAT SHE USES AT HOME. NOTED CONTINUED ERYTHEMA L ANTERIOR LL; BARRIER CREAM APPLIED FOR SKIN HYDRATION. PT. REPORTED L KNEE PN INCREASED W/ USE OF CP YESTERDAY SO WAS NOT APPLIED TODAY. TO D/C TO [facility] TO CONT. REHAB. 04/14/20. LEENA BARON, PT Initialized on 04/13/20 17:15 - END OF NOTE 04/13/20 13:53 Case Management Note by Gillian Pablo CALLED TO REPORT THAT [facility] HAS BEEN INITIATED ON PT. SHE WILL CALL ONCE THEY HAVE APPROVAL. Initialized on 04/13/20 13:53 - END OF NOTE 04/13/20 12:18 Case Management Note by Susanne Campbell PAPERWORK COMPLETE AT THIS TIME. NO LEVEL II REQUIRED. PAPERWORK FAXED TO [facility] AND PLACED ON CHART Initialized on 04/13/20 12:18 - END OF NOTE 04/13/20 12:01 Case Management Note by Susanne Campbell S/W LULA KOCH- HE WAS UPDATED ON PLAN FOR PATIENT TO DC TO [facility] PER HER CHOICE. HE WAS NOTIFIED THAT [facility] HAS HAD CORONAVIRUS RECENTLY BUT IS CURRENTLY COVID FREE- HE VERIFIED UNDERSTANDING AND AGREES WITH PLAN. Initialized on 04/13/20 12:01 - END OF NOTE 04/13/20 10:05 Case Management Note by Susanne Campbell PATIENT TOO WEAK TO GO HOME AT THIS TIME. SHE AGREES SHE NEEDS REHAB PLACEMENT AT [place]. PATIENT WOULD LIKE TO GO [facility] IN [place]. PATIENT WAS NOTIFIED OF RECENT CORONAVIRUS CASES AT THAT FACILITY BUT PER THEIR REPORT THEY ARE CURRENTLY COVID FREE. PATIENT WOULD LIKE TO PROCEED WITH [facility]. ATTEMPTED TO CALL [facility] TO DISCUSS PLAN WELL- NO ANSWER- LEFT MESSAGE. SENT REFERRAL PACKET TO [facility] Initialized on 04/13/20 10:05 - END OF NOTE Assessment/Plan (1) Cellulitis Current Visit: Yes Status: Acute Qualifiers: Site of cellulitis: extremity Site of cellulitis of extremity: lower extremity Laterality: left Qualified Code(s): L03.116 - Cellulitis of left lower limb Assessment & Plan: improved. On vancomycin. Will change antibiotics to po today (clindamycin). Code(s): L03.90 - CELLULITIS, UNSPECIFIED (2) Atrial fibrillation with RVR Current Visit: Yes Status: Resolved Code(s): I48.91 - UNSPECIFIED ATRIAL FIBRILLATION (3) Diabetes mellitus Current Visit: No Status: Chronic Qualifiers: Diabetes mellitus type: type 2 Diabetes mellitus senior care insulin use: without intermission coordinator use Diabetes mellitus complication status: with kidney complications Diabetes mellitus complication detail: with chronic kidney disease Chronic kidney disease stage: stage 2 (mild) Qualified Code(s): E11.22 - Type 2 diabetes mellitus with diabetic chronic kidney disease; N18.2 - Chronic kidney disease, stage 2 (mild) Code(s): E11.9 - TYPE 2 DIABETES MELLITUS WITHOUT COMPLICATIONS (4) HTN (hypertension) Current Visit: No Status: Chronic Qualifiers: Hypertension type: essential hypertension Qualified Code(s): I10 - Essential (primary) hypertension Code(s): I10 - ESSENTIAL (PRIMARY) HYPERTENSION (5) Muscular deconditioning Current Visit: Yes Status: Acute Assessment & Plan: Upon discharge, will go to LTCF for therapy. Pt requiring assistance with all ADLs. Code(s): R29.898 - OTH SYMPTOMS AND SIGNS INVOLVING THE MUSCULOSKELETAL SYSTEM
[2020-04-14] MEDS: Lopressor 50 MG PO SCH (09:11)
[2020-04-14] MEDS: Glucophage 500 MG PO SCH (09:11)
[2020-04-14] MEDS: VITAMIN D PO SCH (09:11)
[2020-04-14] MEDS: Vitamin B-12 500 MCG PO SCH (09:12)
[2020-04-14] MEDS: Ditropan 5 MG PO SCH (09:12)
[2020-04-14] MEDS: THERAGRAN MULTIVITAMIN PO SCH (09:12)
[2020-04-14] MEDS: CLARITIN 10 MG PO SCH (09:12)
[2020-04-14] MEDS: MAG-OX 400 PO SCH (09:12)
[2020-04-14] MEDS: Protonix 40MG Tablet PO SCH (09:12)
[2020-04-14] MEDS: Imdur 60MG PO SCH (09:12)
[2020-04-14] MEDS: BUSPAR 5 MG PO SCH (09:12)
[2020-04-14] MEDS: Amaryl 2 MG PO SCH (09:12)
[2020-04-14] MEDS: FEOSOL 325 MG PO SCH (09:13)
[2020-04-14] MEDS: HUMALOG SQ PRN ×2 (09:13→12:15)
[2020-04-14] MEDS: ECOTRIN 81 MG PO SCH (09:13)
[2020-04-14] MEDS: Lasix 40 MG PO SCH (09:13)
[2020-04-14] MEDS: Nystatin SUSPENSION 60 ML PO SCH ×2 (09:13→13:33)
[2020-04-14] MEDS: CLEOCIN 150 MG CAPSULE PO SCH ×2 (10:53→13:31)
[2020-04-14] MEDS: Miralax Powder 17GM PACKET PO SCH (10:53)
[2020-04-14 11:38] VITALS: BP 131/60; PULSE 92
[2020-04-14] MEDS ORDERED: Voltaren GEL TOP PRN (12:49)
--- NOTE | 2020-04-14 13:50 | PCM.DS ---
Discharge Summary Date of Admission: 04/09/20 16:18 Admitting Physician: TONI MCCLAIN Primary Care Provider: TONI MCCLAIN Allergies Allergies dicyclomine [Dicyclomine] Allergy (Intermediate, Verified 04/09/20 13:28) NAUSEA, STOMACH PAIN Sulfa (Sulfonamide Antibiotics) [Sulfa(Sulfonamide Antibiotics)] Allergy (Unknown, Verified 04/09/20 13:28) Eypkzfr-Xhb-Stn Reductase Inhibitor Allergy (Verified 04/09/20 13:28) Hospital Summary - Hospital Course Hospital Course: Pt is 85 yo female with CHF and poor mobility (uses walker at home) who was admitted through ER with LLE edema/erythema dx as cellulitis. Her u/s leg was neg for DVT. XRays of the knee and tib/fib were non acute. She had altered mental status on admission, but cleared by days 2-3 of her hospital stay. She is still a 2 assist and will be discharged to the LTCF ([facility]) on po clindamycin, after finishing 5d of IV vancomycin. Her blood sugars have been elevated this visit, after having held her diabetic medications the first few days of her stay. - Vitals & Intake/Output Vital Signs: Vital Signs Temperature 98.1 F 04/14/20 11:37 Pulse Rate 92 H 04/14/20 11:37 Respiratory Rate 16 04/14/20 11:37 Blood Pressure 131/60 04/14/20 11:37 O2 Sat by Pulse Oximetry 94 L 04/14/20 11:37 Intake & Output: Intake & Output 04/12/20 04/13/20 04/14/20 04/15/20 11:59 11:59 11:59 11:59 Intake Total 1480 1300 900 Balance 1480 1300 900 Weight 70.6 kg 70.4 kg 71.2 kg - Lab Result Diagrams: 04/12/20 04:37 04/12/20 04:37 Lab Results-Last 24 Hrs: Lab Results-Last 24 Hours 04/13/20 04/13/20 04/14/20 Range/Units 16:29 20:51 07:37 POC Glucometer 467 H 361 H 233 H (74 to 106) mg/dL 04/14/20 Range/Units 11:33 POC Glucometer 396 H (74 to 106) mg/dL Micro Results-Entire Visit: Microbiology 04/09/20 16:10 Blood Culture Gram Stain - Final Blood Not Reportable Blood Culture - Final NO GROWTH Accuchecks Date 04/14/20 Date 04/12/20 Time 21:46 - Radiology Exams Ordered Rad Exams-Entire Visit: Radiology Procedures Category Date Time Status KNEE (1 OR 2 VIEW) Urgent Exams 04/13/20 11:43 Completed LOWER LEG Urgent Exams 04/13/20 11:43 Completed - Procedures and Test Procedures and Tests throughout Hospitalization: Therapy Orders & Screens 04/09/20 18:14 OT Screen per Nursing Assess ONCE Comment: Protocol Order Physician Instructions: Greater than 3 points order OT Admission Screening Reason For Exam: Triggered on Admission Diagnosis: LLE cellulitis; A-fib with RVR Open Wound/Cellutlitis/Pressure Ulcers: Yes Acute Fx/ORIF/Change in wt bearing status: No Severe MUSCULOSKELETAL pain: No ADL Dysfunction: No Acute CVA w/Hemiparesis/Hemiplegia: No Decreased Functional Mobility/Strength: No Sprain/Strain: No Acute Post-op Mobility Dysfunction: No Total Points: 5 PT Screen per Nursing Assess ONCE Comment: Protocol Order Physician Instructions: Greater than 3 points order PT Admission Screenin Reason For Exam: Triggered on Admission Diagnosis: LLE cellulitis; A-fib with RVR Open Wound/Cellutlitis/Pressure Ulcers: Yes Acute Fx/ORIF/Change in wt bearing status: No Severe MUSCULOSKELETAL pain: No ADL Dysfunction: No Acute CVA w/Hemiparesis/Hemiplegia: No Decreased Functional Mobility/Strength: No Sprain/Strain: No Acute Post-op Mobility Dysfunction: No Total Points: 5 04/09/20 21:30 EKG ONCE Comment: EKG Q8HX2,QAMX3,PRN Comment: 04/10/20 05:00 EKG ONCE Comment: 04/11/20 05:00 EKG ONCE Comment: 04/11/20 07:55 Oxygen Nasal Cannula 2 lpm Comment: Diagnosis: LLE cellulitis; A-fib with RVR 04/12/20 05:00 EKG ONCE Comment: 04/12/20 09:09 PT Eval & Treat ( Order) ONCE Reason for Eval:: deconditioning Diagnosis: LLE cellulitis; A-fib with RVR Discharge Exam General Appearance: no apparent distress, alert Neurologic Exam: oriented x 3, cooperative, other (very [place]) Eye Exam: eyes nml inspection Ears, Nose, Throat Exam: moist mucous membranes Respiratory Exam: normal breath sounds, lungs clear, No crackles/rales, No rhonchi, No wheezing Cardiovascular Exam: regular rate/rhythm, normal heart sounds, No murmur Gastrointestinal/Abdomen Exam: soft, normal bowel sounds, No tenderness, No distention, No mass, No guarding, No rebound Back Exam: normal inspection, No rash Skin Exam: other (LLE 1+ edema to knee. mild erythema anteriorly with a linear area of slightly darker erythemaon the kee-lateral portion.) Final Diagnosis/Problem List - Final Discharge Diagnosis/Problem (1) Cellulitis Current Visit: Yes Status: Acute Assessment & Plan: much improved. Started po clindamycin today; would like to finish total of 14d of antibiotics. Code(s): L03.90 - CELLULITIS, UNSPECIFIED (2) Atrial fibrillation with RVR Current Visit: Yes Status: Resolved Code(s): I48.91 - UNSPECIFIED ATRIAL FIBRILLATION (3) Diabetes mellitus Current Visit: No Status: Chronic Code(s): E11.9 - TYPE 2 DIABETES MELLITUS WITHOUT COMPLICATIONS (4) HTN (hypertension) Current Visit: No Status: Chronic Code(s): I10 - ESSENTIAL (PRIMARY) HYPERTENSION (5) Muscular deconditioning Current Visit: Yes Status: Acute Assessment & Plan: needs LTCF placement and therapy. Code(s): R29.898 - OTH SYMPTOMS AND SIGNS INVOLVING THE MUSCULOSKELETAL SYSTEM - Discharge Disposition: ID TO [facility] Condition: Stable Prescriptions: New Clindamycin HCl 300 mg PO QID 9 Days capsule Metoprolol Tartrate 50 mg [Lopressor 50 MG] 75 mg PO BID #60 tablet Polyethylene Glycol 3350 17 gm [Miralax Powder 17GM PACKET] 17 gm PO DAILY packet Nystatin 60 ml [Nystatin SUSPENSION 60 ML] 5 ml PO QID bottle Senna/Docusate Sodium Tab [Senokot-S Tablet] 2 udtab PO BID PRN PRN tablet PRN Reason: CONSTIPATION Diclofenac Sodium Gel [Voltaren GEL] 1 gm TOP QID PRN PRN gel..gm. PRN Reason: Pain Continue Buspirone HCl [Buspar] 10 mg PO BID Metformin HCl 500 mg [Glucophage 500 MG] 500 mg PO TID Loratadine 10 mg [Claritin 10 mg] 10 mg PO DAILY Rivaroxaban 10 mg Tablet [Xarelto 10 mg Tablet] 20 mg PO EVENING MEAL Glimepiride 2 mg [Amaryl 2 MG] 2 mg PO BID Nitroglycerin 0.4 mg Tablet [Nitrostat 0.4 MG Tablet] 0.4 mg SL Q5MIN PRN MR X 3 PRN PRN Reason: cp Solifenacin Succinate 5 mg PO DAILY Potassium Gluconate 99 mg PO DAILY Magnesium 250 mg PO DAILY Cholecalciferol (Vitamin D3) [Vitamin D3] 2,000 iu PO DAILY Multivitamins,Therapeutic Tab* [Theragran Multivitamin] 1 tab PO DAILY Cyanocobalamin 500 Mcg [Vitamin B-12 500 MCG] 1,000 mcg PO DAILY Aspirin EC 81 mg [Ecotrin 81 mg] 81 mg PO DAILY Isosorbide Mononitrate 60 mg [Imdur 60MG] 60 mg PO DAILY Furosemide 80 mg PO DAILY Omeprazole 20 mg PO QAM Ferrous Sulfate 325 mg [Feosol 325 mg] 325 mg PO DAILY Discontinued Metoprolol Tartrate 50 mg PO BID Additional Instructions: [facility] ORDERS: -PT/OT EVAL AND TREAT -DIABETIC DIET -ACCUCHECKS ACHS -SEE ATTACHED MEDICATION LIST FOR MEDICATION ORDERS Follow up with: TONI MCCLAIN [Primary Care Provider] - 1 Week
[2020-04-15] MEDS ORDERED: TROUGH DRUG LEVELS IJ ONE (13:30)
== END 2020-04-14 14:50 | DRG 603 ==
LOC: ED 13:13 → ICU 16:18 → MED SURG 04-10 11:53
PROVIDERS: ADMIT Family Medicine; ATTEND Family Medicine
DX: L03.116 Cellulitis of left lower limb (principal); M25.562 Pain in left knee; R07.9 Chest pain, unspecified; E11.9 Type 2 diabetes mellitus without complications; E78.00 Pure hypercholesterolemia, unspecified; I48.91 Unspecified atrial fibrillation; I50.9 Heart failure, unspecified; R41.82 Altered mental status, unspecified; I11.0 Hypertensive heart disease with heart failure; R29.898 Other symptoms and signs involving the musculoskeletal system; Z79.01 Long term (current) use of anticoagulants; Z79.899 Other long term (current) drug therapy
CPT/HCPCS: 36000; 36415; 71045; 73560; 73590; 80048; 80053; 80061; 80202; 81001; 82947; 82962; 83036; 83605; 83721; 83880; 84134; 84484; 85025; 85610; 85730; 87040; 93005; 93041; 93971; 94760; 96365; 99285; J1817; P9612; 97110-GP; A9270-GY; J3370

== ENCOUNTER 2020-07-03 19:32 | Emergency (ER) | payer MEDICARE ==
[2020-07-03 19:45] VITALS: O2SAT 98
--- NOTE | 2020-07-03 20:02 | ERPHSYRPT ---
- History of Present Illness Time Seen by Provider: 07/03/20 20:00 Source: patient, family Exam Limitations: no limitations Patient Subjective Stated Complaint: PT HAD FALL AT HOME AND HIT HEAD Triage Nursing Assessment: Pt had fall at home this evening, fell in kitchen onto her butt and hit the back of her head on the cabinet. No swelling or knot noted, pt denies any pain at this time. Bilat lower ext have 3+ pitting edema, non-related to this incident. Physician History: Pt had fall at home this evening, fell in kitchen onto her butt and hit the back of her head on the cabinet. No swelling or knot noted, pt denies any pain at this time. Occurred: this evening Reason for Fall: lost balance Injuries/Pain Location: head Loss of Consciousness: no loss of consciousness Severity of Pain-Max: none Severity of Pain-Current: none Allergies/Adverse Reactions: dicyclomine [Dicyclomine] Allergy (Intermediate, Verified 04/09/20 13:28) NAUSEA, STOMACH PAIN Sulfa (Sulfonamide Antibiotics) [Sulfa(Sulfonamide Antibiotics)] Allergy (Unknow n, Verified 04/09/20 13:28) atorvastatin [From Lipitor] Allergy (Verified 07/03/20 19:54) Zadamik-Woo-Xpi Reductase Inhibitor Allergy (Verified 04/09/20 13:28) Home Medications: Buspirone HCl [Buspar] 10 mg PO BID 07/29/19 [History] Glimepiride 2 mg [Amaryl 2 MG] 2 mg PO BID 07/29/19 [History] Loratadine 10 mg [Claritin 10 mg] 10 mg PO DAILY 07/29/19 [History] Metformin HCl 500 mg [Glucophage 500 MG] 500 mg PO TID 07/29/19 [History] Nitroglycerin 0.4 mg Tablet [Nitrostat 0.4 MG Tablet] 0.4 mg SL Q5MIN PRN MR X 3 PRN 07/29/19 [History] Rivaroxaban 10 mg Tablet [Xarelto 10 mg Tablet] 20 mg PO EVENING MEAL 07/29/19 [History] Solifenacin Succinate 5 mg PO DAILY 08/06/19 [History] Aspirin EC 81 mg [Ecotrin 81 mg] 81 mg PO DAILY 04/09/20 [History] Cholecalciferol (Vitamin D3) [Vitamin D3] 2,000 iu PO DAILY 04/09/20 [History] Cyanocobalamin 500 Mcg [Vitamin B-12 500 MCG] 1,000 mcg PO DAILY 04/09/20 [History] Ferrous Sulfate 325 mg [Feosol 325 mg] 325 mg PO DAILY 04/09/20 [History] Furosemide 80 mg PO DAILY 04/09/20 [History] Isosorbide Mononitrate 60 mg [Imdur 60MG] 60 mg PO DAILY 04/09/20 [History] Magnesium 250 mg PO DAILY 04/09/20 [History] Multivitamins,Therapeutic Tab* [Theragran Multivitamin] 1 tab PO DAILY 04/09/20 [History] Omeprazole 20 mg PO QAM 04/09/20 [History] Potassium Gluconate 99 mg PO DAILY 04/09/20 [History] Hx Tetanus, Diphtheria Vaccination/Date Given: Yes Hx Influenza Vaccination/Date Given: Yes Hx Pneumococcal Vaccination/Date Given: Yes Immunizations Up to Date: Yes Travel Risk - International Travel Have you traveled outside of the country in past 3 weeks: No - Coronavirus Screening Are you exhibiting any of the following symptoms?: No Close contact with a COVID-19 positive Pt in past 14-21 Days: No - Review of Systems Constitutional: No Fever, No Chills Eyes: No Symptoms Ears, Nose, & Throat: No Symptoms Respiratory: No Cough, No Dyspnea Cardiac: No Chest Pain, No Edema, No Syncope Abdominal/Gastrointestinal: No Abdominal Pain, No Nausea, No Vomiting, No Diarrhea Genitourinary Symptoms: No Dysuria Musculoskeletal: No Back Pain, No Neck Pain Skin: No Rash Neurological: No Dizziness, No Focal Weakness, No Sensory Changes Psychological: No Symptoms Endocrine: No Symptoms All Other Systems: Reviewed and Negative - Past Medical History Pertinent Past Medical History: Yes Neurological History: No Pertinent History ENT History: Cataracts, Macular Degeneration Cardiac History: Angina, High Cholesterol, Hypertension Respiratory History: No Pertinent History Endocrine Medical History: Diabetes Type II Musculoskeletal History: Other GI Medical History: Irritable Bowel History: No Pertinent History Psycho-Social History: Depression Female Reproductive Disorders: No Pertinent History Other Medical History: hearing loss wears hearing aides, rib fx - Past Surgical History Past Surgical History: Yes Neuro Surgical History: No Pertinent History Cardiac: No Pertinent History, Cardiac Catheterization Respiratory: No Pertinent History Gastrointestinal: Cholecystectomy, Exploratory Laparoscopy Genitourinary: No Pertinent History Musculoskeletal: Orthopedic Surgery, Other Female Surgical History: Tubal Ligation Other Surgical History: Surgery to left pinky finger-russ insertion. bladder tie up, hx of L hip fx repair. L knee replacement. rt hip replacement - Social History Smoking Status: Never smoker Exposure to second hand smoke: No Drug Use: none Patient Lives Alone: No Significant Family History: no pertinent family hx - Female History Hx Now: No - Nursing Vital Signs Nursing Vital Signs: Initial Vital Signs Temperature 98.2 F 07/03/20 19:43 Pulse Rate 71 07/03/20 19:43 Respiratory Rate 18 07/03/20 19:43 Blood Pressure 151/78 07/03/20 19:43 O2 Sat by Pulse Oximetry 98 07/03/20 19:43 Pain Scale Pain Intensity 0 - [place] Coma Score Best Eye Response ([place]): (4) open spontaneously Best Verbal Response ([place]): (5) oriented Best Motor Response ([place]): (6) obeys commands [place] Total: 15 - Physical Exam General Appearance: no apparent distress, alert Head Injury: no evidence of injury Eye Exam: PERRL/EOMI ENT Exam: airway nml Neck Exam: normal inspection, No tenderness Respiratory/Chest Exam: normal breath sounds, No chest tenderness, No respiratory distress Cardiovascular Exam: normal heart sounds, regular rate/rhythm Gastrointestinal Exam: soft, No tenderness, No distention, No guarding, No ecchymosis Back Exam: normal inspection, No vertebral tenderness Extremity Exam: normal inspection, normal range of motion, pelvis stable, No deformities Neurologic Exam: alert, oriented x 3, cooperative, sensation nml, No motor deficits Skin Exam: normal color, warm, dry SpO2: 98 - Course Nursing assessment & vital signs reviewed: Yes - CT Exams Head CT Interpretation: Tele-radiologist Report Ordered Tests: Active Orders 24 hr Category Date Time Status HEAD WITHOUT CONTRAST [CT] Stat Exams 07/03/20 19:55 Taken - Progress Progress: improved Counseled pt/family regarding: diagnosis, need for follow-up, rad results - Departure Departure Disposition: Home Clinical Impression: Minor head injury without loss of consciousness Qualifiers: Encounter type: initial encounter Qualified Code(s): S09.90XA - Unspecified injury of head, initial encounter Fall Qualifiers: Encounter type: initial encounter Qualified Code(s): W19.XXXA - Unspecified fall, initial encounter Condition: Stable Critical Care Time: No Referrals: TONI MCCLAIN [Primary Care Provider] - Instructions: Preventing Falls Additional Instructions: FIDE LUNDY was seen on 07/03/20 n the Emergency Room. At that time you were treated for an emergent condition, during your visit Laboratory, Radiology and/or other procedures may have been ordered. It is very important that you follow-up with your Primary Care Physician TONI MCCLAIN within the next 24-48 hours to review your Emergency Room visit and the final results of testing that was ordered. Some test results such as Urine Cultures, Blood Cultures, and other cultures if ordered will not be finalized for 24-48 hours. If you do not have a Primary Care Provider please call the medical records department at [phone] to obtain a copy of your results or you may sign into our patient portal to obtain these results by visiting us @ [email or web address] and completing the following steps: 1. Click on the Patient Portal link 2. Click the Patient Self Enrollment Link to complete the enrollment form and entering your 3. Once the enrollment form is completed you will receive an email with a temporary ID and password at the email address you provided. 4. Next choose a user name and password. Your user name must be at least 4 characters long and your password must be at least 4 characters long. 5. Choose a security question from the list and provide your answer to the question. If you already have signed into the Health Portal you may access your Health Care Information 12/02 by the following steps: 1. Login to our website @ [email or web address] 2. Enter your original user name and password. FAQS The [facility] Health Portal is an online tool that contains your Lab Results, Radiology Reports, Visit History, Discharge Instructions and Health Summary Lab and Radiology Results will not be available for 72 hours on the portal. The Portal is a secure site, passwords are encryted and URLs are re-written so they cannot be copied and pasted. You and authorized family members are the only ones who can access your Portal. Also there is a timeout feature that protects your information if you leave the Portal page open. If you have technical difficulty please use the Contact Us link on the page this will allow you to submit any questions you have regarding the Portal or you may contact the Medical Record Department at [phone] ext [phone].
[2020-07-03 20:49] VITALS: BP 154/92; PULSE 76
--- NOTE | 2020-07-04 07:04 | XRAY ---
Indication: Posterior head injury. Multiple contiguous axial images obtained through the head without contrast. Comparison: December 14, 2015. Again age-appropriate global atrophy, mild periventricular degenerative micro-ischemia bilaterally, and remote lacunar infarct of the right internal capsule. No acute intracranial hemorrhage, abnormal extra-axial fluid collection, or mass effect. Fourth ventricle is midline without hydrocephalus. Bony calvarium intact. Visualized paranasal sinuses and mastoid air cells are clear. 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 Comment: Preliminary interpretation was made by [facility]. No critical discrepancy.
== END 2020-07-03 20:45 | disposition home or self-care (01) ==
LOC: ED 19:32
DX: S09.90XA Unspecified injury of head, initial encounter (principal); W18.30XA Fall on same level, unspecified, initial encounter; Y93.9 Activity, unspecified; Y92.000 Kitchen of unspecified non-institutional (private) residence as the place of occurrence of the external cause; I10 Essential (primary) hypertension; E78.00 Pure hypercholesterolemia, unspecified; E11.9 Type 2 diabetes mellitus without complications
CPT/HCPCS: 70450; 99283

== ENCOUNTER 2020-08-02 15:45 | Observation (INO) | payer MEDICARE ==
--- NOTE | 2020-08-02 16:29 | XRAY ---
Indication: Pneumonia. Comparison: April 09, 2020. Portable chest demonstrates new moderate/significant bilateral pleural effusions with compressive atelectasis left greater than right obscuring cardiac silhouette. There is central vascular congestion which would favor cardiac decompensation/CHF. Superimposed pneumonia not completely excluded. New right arm PICC line in situ.
[2020-08-02] MEDS: Sodium Chloride 0.9% 1000 ML 1,000 ML IV SCH (16:31)
[2020-08-02 16:47] LABS: Amphetamine,Urine NEGATIVE (NEGATIVE); Barbiturate,Urine NEGATIVE (NEGATIVE); Benzodiazepine,Urine NEGATIVE (NEGATIVE); Cocaine,Urine NEGATIVE (NEGATIVE); Methadone,Urine NEGATIVE (NEGATIVE); Opiate,Urine NEGATIVE (NEGATIVE); PCP,Urine NEGATIVE (NEGATIVE); THC,Urine NEGATIVE (NEGATIVE)
--- NOTE | 2020-08-02 16:49 | XRAY ---
Indication: Acute mental status change. Multiple contiguous axial images obtained through the head without contrast. Comparison: July 03, 2020. Again age-appropriate global atrophy, mild periventricular degenerative micro-ischemia bilaterally, and remote lacunar infarct of the right internal capsule. No acute intracranial hemorrhage, abnormal extra-axial fluid collection, or mass effect. Fourth ventricle is midline without hydrocephalus. Bony calvarium intact. Visualized paranasal sinuses and mastoid air cells are clear. 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
[2020-08-02 16:52] LABS: Absolute Neutrophil Ct (ANC) 5.85 (1.4-6.9); BASOPHIL % 0.1 % (0.0-0.4); Basophil (Absolute #) 0.01 (0-0.4); Eosinophil % 0.6 % (0.00-5.0); Eosinophil (Absolute #) 0.04 (0-0.5); Hematocrit 33.4 % (35-47); Hemoglobin 9.9 gm/dl (12.0-16.0); Lymphocyte (Absolute #) 0.86 (1.0-4.6); Lymphocytes % 12.1 % (24.0-44.0); Mean Corpuscular Hemoglobin 26.7 pg (26-32); Mean Corpuscular Hgb Concent. 29.6 g/dl (32-36); Mean Platelet Volume 10.1 fl (7.5-11.0); Monocyte (Absolute #) 0.33 (0.0-1.3); Monocytes % 4.7 % (0.0-12.0); Neutrophil % 82.5 % (36.0-66.0); Platelet Count 232 K/mm3 (150-450); Red Blood Count 3.71 M/mm3 (4.1-5.4); Red Cell Distribution Width 21.3 % (11.5-14.0); White Blood Count 7.1 K/mm3 (4.0-10.5)
[2020-08-02 17:04] LABS: ALBUMIN 3.2 g/dL (3.5-5.0); ALKALINE PHOSPHATASE 61 U/L (38-126); BLOOD UREA NITROGEN 31 mg/dL (7-17); CHLORIDE 96 mmol/L (98-107); Calcium 8.3 mg/dL (8.4-10.2); Carbon Dioxide 34 mmol/L (22-30); Creatinine 1 0.66 mg/dL (0.52-1.04); EST GLOMERULAR FILTRATION RATE > 60.0 ML/MIN; Glucose 160 mg/dL (74-106); SGOT/AST 33 U/L (14-36); SGPT/ALT 19 U/L (0-35); SODIUM 135 mmol/L (137-145); Total Protein 6.2 g/dL (6.3-8.2)
[2020-08-02 17:09] LABS: Potassium 2.8 mmol/L (3.5-5.1)
--- NOTE | 2020-08-02 17:13 | ERPHSYRPT ---
- History of Present Illness Time Seen by Provider: 08/02/20 15:50 Source: patient Exam Limitations: no limitations Patient Subjective Stated Complaint: EMS states "The RN at [facility] told us that she is not up and moving arond like she normally is and she called Dr. Salgado told us to send her to the ED, she might be having a cardiac event." Triage Nursing Assessment: PT presented alert and confused, able to move all extremeties, pt keeps stating she cannot hear. PT has hearing aids in but unable to hear well. Pt able to read simple questions. Pt advised she did not want to come to the hospital and she does not hurt. Physician History: Patient is an 85-year-old female who presents to our ED from [facility] for evaluation of altered mental status. Nurse reports that patient is normally up and moving around however patient has been more sedentary. Nurse notified patient's primary care doctor who advised staff to bring patient to our ED for an evaluation. Patient is hard of hearing. However we were able to communicate with patient via writing. Patient denies pain. No chest pain or shortness of breath. No nausea vomiting or diaphoresis. Symptoms are mild in intensity. No specific worsening or improving factors. Patient voices no complaints or concerns at this time. Timing/Duration: today Severity: moderate Modifying Factors: Improves With: nothing Associated Symptoms: No nausea, No vomiting, No abdominal pain, No shortness of breath, No heartburn, No diaphoresis, No cough, No chills, No chest pain, No fever, No headaches, No loss of appetite, No malaise, No rash Allergies/Adverse Reactions: dicyclomine [Dicyclomine] Allergy (Intermediate, Verified 04/09/20 13:28) NAUSEA, STOMACH PAIN Sulfa (Sulfonamide Antibiotics) [Sulfa(Sulfonamide Antibiotics)] Allergy (Unknown, Verified 04/09/20 13:28) atorvastatin [From Lipitor] Allergy (Verified 07/03/20 19:54) Tusnyqm-Eim-Sob Reductase Inhibitor Allergy (Verified 04/09/20 13:28) Home Medications: Buspirone HCl [Buspar] 10 mg PO BID 07/29/19 [History] Glimepiride 2 mg [Amaryl 2 MG] 2 mg PO BID 07/29/19 [History] Loratadine 10 mg [Claritin 10 mg] 10 mg PO DAILY 07/29/19 [History] Metformin HCl 500 mg [Glucophage 500 MG] 500 mg PO TID 07/29/19 [History] Nitroglycerin 0.4 mg Tablet [Nitrostat 0.4 MG Tablet] 0.4 mg SL Q5MIN PRN MR X 3 PRN 07/29/19 [History] Rivaroxaban 10 mg Tablet [Xarelto 10 mg Tablet] 10 mg PO EVENING MEAL 02/08 [History] Solifenacin Succinate 5 mg PO DAILY 08/06/19 [History] Aspirin EC 81 mg [Ecotrin 81 mg] 81 mg PO DAILY 04/09/20 [History] Cholecalciferol (Vitamin D3) [Vitamin D3] 2,000 iu PO DAILY 04/09/20 [History] Cyanocobalamin 500 Mcg [Vitamin B-12 500 MCG] 1,000 mcg PO DAILY 04/09/20 [History] Ferrous Sulfate 325 mg [Feosol 325 mg] 325 mg PO DAILY 04/09/20 [History] Furosemide 80 mg PO DAILY 04/09/20 [History] Isosorbide Mononitrate 60 mg [Imdur 60MG] 60 mg PO DAILY 04/09/20 [History] Magnesium 250 mg PO DAILY 04/09/20 [History] Multivitamins,Therapeutic Tab* [Theragran Multivitamin] 1 tab PO DAILY 04/09/20 [History] Omeprazole 20 mg PO QAM 04/09/20 [History] Potassium Gluconate 99 mg PO DAILY 04/09/20 [History] Hx Tetanus, Diphtheria Vaccination/Date Given: Yes Hx Influenza Vaccination/Date Given: Yes Hx Pneumococcal Vaccination/Date Given: Yes Immunizations Up to Date: Yes Travel Risk - International Travel Have you traveled outside of the country in past 3 weeks: No - Coronavirus Screening Are you exhibiting any of the following symptoms?: No Close contact with a COVID-19 positive Pt in past 14-21 Days: No - Review of Systems Constitutional: No Symptoms, No Fever, No Chills Eyes: No Symptoms Ears, Nose, & Throat: No Symptoms Respiratory: No Symptoms, No Cough, No Dyspnea Cardiac: No Symptoms, No Chest Pain, No Edema, No Syncope Abdominal/Gastrointestinal: No Symptoms, No Abdominal Pain, No Nausea, No Vomiting, No Diarrhea Genitourinary Symptoms: No Symptoms, No Dysuria Musculoskeletal: No Symptoms, No Back Pain, No Neck Pain Skin: No Symptoms, No Rash Neurological: No Symptoms, No Dizziness, No Focal Weakness, No Sensory Changes Psychological: No Symptoms Endocrine: No Symptoms Hematologic/Lymphatic: No Symptoms Immunological/Allergic: No Symptoms All Other Systems: Reviewed and Negative - Past Medical History Pertinent Past Medical History: Yes Neurological History: No Pertinent History ENT History: Cataracts, Macular Degeneration Cardiac History: Angina, High Cholesterol, Hypertension Respiratory History: No Pertinent History Endocrine Medical History: Diabetes Type II Musculoskeletal History: Other GI Medical History: Irritable Bowel History: No Pertinent History Psycho-Social History: Depression Female Reproductive Disorders: No Pertinent History Other Medical History: hearing loss wears hearing aides, rib fx - Past Surgical History Past Surgical History: Yes Neuro Surgical History: No Pertinent History Cardiac: No Pertinent History, Cardiac Catheterization Respiratory: No Pertinent History Gastrointestinal: Cholecystectomy, Exploratory Laparoscopy Genitourinary: No Pertinent History Musculoskeletal: Orthopedic Surgery, Other Female Surgical History: Tubal Ligation Other Surgical History: Surgery to left pinky finger-russ insertion. bladder tie up, hx of L hip fx repair. L knee replacement. rt hip replacement - Social History Smoking Status: Never smoker Exposure to second hand smoke: No Drug Use: none Patient Lives Alone: No Significant Family History: no pertinent family hx - Nursing Vital Signs Nursing Vital Signs: Initial Vital Signs Temperature 98.6 F 08/02/20 15:45 Pulse Rate 74 08/02/20 15:45 Respiratory Rate 20 08/02/20 15:45 Blood Pressure 184/102 08/02/20 15:45 O2 Sat by Pulse Oximetry 96 08/02/20 15:45 Pain Scale Pain Intensity 0 - Physical Exam General Appearance: no apparent distress, alert Eye Exam: PERRL/EOMI, eyes nml inspection Ears, Nose, Throat Exam: normal ENT inspection, pharynx normal, moist mucous membranes, other (Patient is hard of hearing.) Neck Exam: normal inspection, non-tender, supple, full range of motion Respiratory Exam: normal breath sounds, lungs clear, No respiratory distress Cardiovascular Exam: regular rate/rhythm, normal heart sounds, normal peripheral pulses, other (JVD observed.) Gastrointestinal/Abdomen Exam: soft, normal bowel sounds, No tenderness, No mass Back Exam: normal inspection, normal range of motion, No CVA tenderness, No vertebral tenderness Extremity Exam: normal inspection, normal range of motion, pelvis stable, other (2+ lower extremity pitting edema bilaterally. Left knee brace intact. Patient had a recent knee surgery per report.) Neurologic Exam: alert, oriented x 3, cooperative, normal mood/affect, sensation nml, No motor deficits Skin Exam: normal color, warm, dry, No rash Lymphatic Exam: No adenopathy SpO2 Interpretation: normal SpO2: 96 O2 Delivery: Room Air - Course Nursing assessment & vital signs reviewed: Yes EKG Interpreted by Me: RATE (75), A-fib, NORMAL AXIS, NORMAL INTERVALS - Radiology Exams Chest X-ray Interpretation: Teleradiologist Report (Significant bilateral effusions with compressive atelectasis with greater than the right obscuring cardiac silhouette. There is central vascular congestion which would favor cardiac decompensation CHF. 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.) Ordered Tests: Active Orders 24 hr Category Date Time Status Linoleum Layer Helper STAT Care 08/02/20 15:47 Active EKG-ER Only STAT Care 08/02/20 15:46 Active IV Insertion STAT Care 08/02/20 15:46 Active Pulse Oximetry (ED) STAT Care 08/02/20 15:46 Active CHEST 1 VIEW (PORTABLE) Stat Exams 08/02/20 15:47 Completed HEAD WITHOUT CONTRAST [CT] Stat Exams 08/02/20 15:49 Completed CBC W DIFF Stat Lab 08/02/20 16:51 Completed CMP Stat Lab 08/02/20 16:51 Completed CULTURE,URINE Stat Lab 08/02/20 17:36 Received NT PRO BNP Stat Lab 08/02/20 17:46 Completed TROPONIN Q3H Lab 08/02/20 16:51 Completed TROPONIN Q3H Lab 08/02/20 19:00 Ordered TROPONIN Q3H Lab 08/02/20 22:00 Ordered TROPONIN Q3H Lab 08/03/20 01:00 Ordered TROPONIN Q3H Lab 08/03/20 04:00 Ordered UA W/RFX UR CULTURE Stat Lab 08/02/20 17:36 Completed Urine Triage Profile Stat Lab 08/02/20 16:28 Completed Transfer Order Routine Transfer 08/02/20 Ordered Medication Summary Generic Name Dose Route Start Last Admin Trade Name Jc PRN Reason Stop Dose Admin Sodium Chloride 1,000 mls @ 100 mls/hr 08/02/20 16:00 08/02/20 16:31 Sodium Chloride 0.9% 1000 Ml IV 09/01/20 15:59 100 mls/hr .Q10H NAE Administration Discontinued Medications Generic Name Dose Route Start Last Admin Trade Name Jc PRN Reason Stop Dose Admin Furosemide 40 mg 08/02/20 18:06 Lasix 40 Mg/4 Ml IV 08/02/20 18:07 STAT ONE Furosemide Confirm 08/02/20 19:32 Lasix 40 Mg/4 Ml Administered 08/02/20 19:33 Dose 40 mg .ROUTE .STK-MED ONE Ceftriaxone Sodium/Dextrose 1 g in 50 mls @ 100 mls/hr 08/02/20 18:09 08/02/20 19:14 Rocephin 1 Gm-D5w 50 Ml Bag IV 08/02/20 18:38 100 mls/hr STAT STA 100 mls/hr Infusion Ceftriaxone Sodium/Dextrose Confirm 08/02/20 18:35 Rocephin 1 Gm-D5w 50 Ml Bag Administered 08/02/20 18:36 Dose 1 g in 50 mls @ ud IV .STK-MED ONE Potassium Chloride 40 meq 08/02/20 17:36 08/02/20 17:51 Klor Con 10 Meq PO 08/02/20 17:37 40 meq STAT ONE Administration Potassium Chloride Confirm 08/02/20 17:44 Klor Con 10 Meq Administered 08/02/20 17:45 Dose 40 meq PO .STK-MED ONE Lab/Rad Data: Laboratory Result Diagrams 08/02/20 16:51 08/02/20 16:51 Laboratory Results 08/02/20 08/02/20 08/02/20 Range/Units 18:22 17:46 17:36 WBC (4.0-10.5) K/mm3 RBC (4.1-5.4) M/mm3 Hgb (12.0-16.0) gm/dl Hct (35-47) % MCV (78-100) fl MCH (26-32) pg MCHC (32-36) g/dl RDW (11.5-14.0) % Plt Count (150-450) K/mm3 MPV (7.5-11.0) fl Gran % (36.0-66.0) % Eos # (Auto) (0-0.5) Absolute Lymphs (auto) (1.0-4.6) Absolute Monos (auto) (0.0-1.3) Lymphocytes % (24.0-44.0) % Monocytes % (0.0-12.0) % Eosinophils % (0.00-5.0) % Basophils % (0.0-0.4) % Absolute Granulocytes (1.4-6.9) Basophils # (0-0.4) Sodium (137-145) mmol/L Potassium (3.5-5.1) mmol/L Chloride (98-107) mmol/L Carbon Dioxide (22-30) mmol/L Anion Gap (5-15) MEQ/L BUN (7-17) mg/dL Creatinine (0.52-1.04) mg/dL Estimated GFR ML/MIN Glucose (74-106) mg/dL Calcium (8.4-10.2) mg/dL Total Bilirubin (0.2-1.3) mg/dL AST (14-36) U/L ALT (0-35) U/L Alkaline Phosphatase (38-126) U/L Troponin I (0.000-0.034) ng/mL NT-Pro-B Natriuret Pep 93529 H (0-1800) pg/mL Serum Total Protein (6.3-8.2) g/dL Albumin (3.5-5.0) g/dL Urine Color NASH (YELLOW) Urine Appearance CLOUDY (CLEAR) Urine pH 5.0 (5-6) Ur Specific [place] 1.023 (1.005-1.025) Urine Protein 30 (Negative) Urine Ketones TRACE (NEGATIVE) Urine Blood NEGATIVE (0-5) Jayme/ul Urine Nitrite NEGATIVE (NEGATIVE) Urine Bilirubin NEGATIVE (NEGATIVE) Urine Urobilinogen NEGATIVE (0-1) mg/dL Ur Leukocyte Esterase MODERATE (NEGATIVE) Urine WBC (Auto) 51-100 (0-5) /HPF Urine RBC (Auto) 3-5 (0-2) /HPF U Hyaline Cast (Auto) 3-5 (0-2) /LPF U Epithel Cells (Auto) RARE (FEW) /HPF Urine Bacteria (Auto) MODERATE (NEGATIVE) /HPF Urine Mucus (Auto) SLIGHT (NEGATIVE) /HPF Urine Culture Reflexed YES (NO) Urine Glucose NEGATIVE (NEGATIVE) mg/dL Urine Opiates Level (NEGATIVE) Ur Methadone (NEGATIVE) Urine Barbiturates (NEGATIVE) Ur Phencyclidine (PCP) (NEGATIVE) Urine Amphetamine (NEGATIVE) U Benzodiazepine Level (NEGATIVE) Urine Cocaine (NEGATIVE) Urine Marijuana (THC) (NEGATIVE) SARS-CoV-2 (PCR) NEGATIVE (NEGATIVE) 08/02/20 08/02/20 08/02/20 Range/Units 16:51 16:51 16:51 WBC 7.1 (4.0-10.5) K/mm3 RBC 3.71 L (4.1-5.4) M/mm3 Hgb 9.9 L (12.0-16.0) gm/dl Hct 33.4 L (35-47) % MCV 90.0 (78-100) fl MCH 26.7 (26-32) pg MCHC 29.6 L (32-36) g/dl RDW 21.3 H (11.5-14.0) % Plt Count 232 (150-450) K/mm3 MPV 10.1 (7.5-11.0) fl Gran % 82.5 H (36.0-66.0) % Eos # (Auto) 0.04 (0-0.5) Absolute Lymphs (auto) 0.86 L (1.0-4.6) Absolute Monos (auto) 0.33 (0.0-1.3) Lymphocytes % 12.1 L (24.0-44.0) % Monocytes % 4.7 (0.0-12.0) % Eosinophils % 0.6 (0.00-5.0) % Basophils % 0.1 (0.0-0.4) % Absolute Granulocytes 5.85 (1.4-6.9) Basophils # 0.01 (0-0.4) Sodium 135 L (137-145) mmol/L Potassium 2.8 L* (3.5-5.1) mmol/L Chloride 96 L (98-107) mmol/L Carbon Dioxide 34 H (22-30) mmol/L Anion Gap 8.0 (5-15) MEQ/L BUN 31 H (7-17) mg/dL Creatinine 0.66 (0.52-1.04) mg/dL Estimated GFR > 60.0 ML/MIN Glucose 160 H (74-106) mg/dL Calcium 8.3 L (8.4-10.2) mg/dL Total Bilirubin 0.60 (0.2-1.3) mg/dL AST 33 (14-36) U/L ALT 19 (0-35) U/L Alkaline Phosphatase 61 (38-126) U/L Troponin I < 0.012 (0.000-0.034) ng/mL NT-Pro-B Natriuret Pep (0-1800) pg/mL Serum Total Protein 6.2 L (6.3-8.2) g/dL Albumin 3.2 L (3.5-5.0) g/dL Urine Color (YELLOW) Urine Appearance (CLEAR) Urine pH (5-6) Ur Specific [place] (1.005-1.025) Urine Protein (Negative) Urine Ketones (NEGATIVE) Urine Blood (0-5) Jayme/ul Urine Nitrite (NEGATIVE) Urine Bilirubin (NEGATIVE) Urine Urobilinogen (0-1) mg/dL Ur Leukocyte Esterase (NEGATIVE) Urine WBC (Auto) (0-5) /HPF Urine RBC (Auto) (0-2) /HPF U Hyaline Cast (Auto) (0-2) /LPF U Epithel Cells (Auto) (FEW) /HPF Urine Bacteria (Auto) (NEGATIVE) /HPF Urine Mucus (Auto) (NEGATIVE) /HPF Urine Culture Reflexed (NO) Urine Glucose (NEGATIVE) mg/dL Urine Opiates Level (NEGATIVE) Ur Methadone (NEGATIVE) Urine Barbiturates (NEGATIVE) Ur Phencyclidine (PCP) (NEGATIVE) Urine Amphetamine (NEGATIVE) U Benzodiazepine Level (NEGATIVE) Urine Cocaine (NEGATIVE) Urine Marijuana (THC) (NEGATIVE) SARS-CoV-2 (PCR) (NEGATIVE) 08/02/20 Range/Units 16:28 WBC (4.0-10.5) K/mm3 RBC (4.1-5.4) M/mm3 Hgb (12.0-16.0) gm/dl Hct (35-47) % MCV (78-100) fl MCH (26-32) pg MCHC (32-36) g/dl RDW (11.5-14.0) % Plt Count (150-450) K/mm3 MPV (7.5-11.0) fl Gran % (36.0-66.0) % Eos # (Auto) (0-0.5) Absolute Lymphs (auto) (1.0-4.6) Absolute Monos (auto) (0.0-1.3) Lymphocytes % (24.0-44.0) % Monocytes % (0.0-12.0) % Eosinophils % (0.00-5.0) % Basophils % (0.0-0.4) % Absolute Granulocytes (1.4-6.9) Basophils # (0-0.4) Sodium (137-145) mmol/L Potassium (3.5-5.1) mmol/L Chloride (98-107) mmol/L Carbon Dioxide (22-30) mmol/L Anion Gap (5-15) MEQ/L BUN (7-17) mg/dL Creatinine (0.52-1.04) mg/dL Estimated GFR ML/MIN Glucose (74-106) mg/dL Calcium (8.4-10.2) mg/dL Total Bilirubin (0.2-1.3) mg/dL AST (14-36) U/L ALT (0-35) U/L Alkaline Phosphatase (38-126) U/L Troponin I (0.000-0.034) ng/mL NT-Pro-B Natriuret Pep (0-1800) pg/mL Serum Total Protein (6.3-8.2) g/dL Albumin (3.5-5.0) g/dL Urine Color (YELLOW) Urine Appearance (CLEAR) Urine pH (5-6) Ur Specific [place] (1.005-1.025) Urine Protein (Negative) Urine Ketones (NEGATIVE) Urine Blood (0-5) Jayme/ul Urine Nitrite (NEGATIVE) Urine Bilirubin (NEGATIVE) Urine Urobilinogen (0-1) mg/dL Ur Leukocyte Esterase (NEGATIVE) Urine WBC (Auto) (0-5) /HPF Urine RBC (Auto) (0-2) /HPF U Hyaline Cast (Auto) (0-2) /LPF U Epithel Cells (Auto) (FEW) /HPF Urine Bacteria (Auto) (NEGATIVE) /HPF Urine Mucus (Auto) (NEGATIVE) /HPF Urine Culture Reflexed (NO) Urine Glucose (NEGATIVE) mg/dL Urine Opiates Level NEGATIVE (NEGATIVE) Ur Methadone NEGATIVE (NEGATIVE) Urine Barbiturates NEGATIVE (NEGATIVE) Ur Phencyclidine (PCP) NEGATIVE (NEGATIVE) Urine Amphetamine NEGATIVE (NEGATIVE) U Benzodiazepine Level NEGATIVE (NEGATIVE) Urine Cocaine NEGATIVE (NEGATIVE) Urine Marijuana (THC) NEGATIVE (NEGATIVE) SARS-CoV-2 (PCR) (NEGATIVE) - Progress Progress: improved Progress Note: 08/02/20 19:45 Patient reassessed. She feels well. No pain. Work-up reveals congestive heart failure, urinary tract infection hypokalemia. Treatments initiated for all of these findings. Patient will be admitted for further evaluation and continued treatment. Case discussed with Dr. Escobar who accepts admission to observation. Patient agrees to admission to [facility] for further evaluation and treatment. Covid negative. 08/02/20 19:46 Discussed with : Mike Will see patient in: hospital (observation) Counseled pt/family regarding: lab results, diagnosis, rad results - Departure Departure Disposition: Observation Clinical Impression: Altered mental status, Congestive heart failure, UTI (urinary tract infection), Elevated brain natriuretic peptide (BNP) level Condition: Stable Critical Care Time: No Referrals: ULISSES MOCK [Primary Care Provider] - Instructions: Heart Failure
[2020-08-02] MEDS ORDERED: Klor Con 10 MEQ PO ONE ×2 (17:36→17:44)
[2020-08-02 17:45] LABS: Appearance CLOUDY (CLEAR); Bacteria MODERATE /HPF (NEGATIVE); Bilirubin NEGATIVE (NEGATIVE); Blood NEGATIVE Ery/ul (0-5); Epithelial Cells RARE /HPF (FEW); Glucose NEGATIVE (NEGATIVE); Ketones TRACE (NEGATIVE); Leukocyte Esterase MODERATE (NEGATIVE); Mucus SLIGHT /HPF (NEGATIVE); Nitrite NEGATIVE (NEGATIVE); Protein,Urine Dip 30 (Negative); Specific Gravity 1.023 (1.005-1.025); Urobilinogen NEGATIVE mg/dL (0-1); WBC 51-100 /HPF (0-5)
[2020-08-02] MEDS ORDERED: Lasix 40 MG/4 ML IV ONE (18:06)
[2020-08-02] MEDS ORDERED: ROCEPHIN 1 Gm-D5w 50 ml Bag** 1 G/50 ML IVPB IV STA (18:09)
[2020-08-02] MEDS ORDERED: ROCEPHIN 1 Gm-D5w 50 ml Bag** 1 G/50 ML IVPB IV ONE (18:35)
[2020-08-02] MEDS ORDERED: Lasix 40 MG/4 ML ONE (19:32)
[2020-08-03] MEDS: Apresoline 25 MG TABLET PO SCH ×2 (00:26→10:25)
[2020-08-03] MEDS: Sodium Chloride 0.9% 1000 ML 1,000 ML IV SCH (00:26)
[2020-08-03] MEDS: Lopressor 50 MG PO SCH ×2 (01:16→10:25)
[2020-08-03 05:32] LABS: Hematocrit 32.9 % (35-47); Hemoglobin 9.7 gm/dl (12.0-16.0); Mean Cell Volume 89.9 fl (78-100); Mean Corpuscular Hemoglobin 26.5 pg (26-32); Mean Corpuscular Hgb Concent. 29.5 g/dl (32-36); Mean Platelet Volume 10.1 fl (7.5-11.0); Platelet Count 239 K/mm3 (150-450); Red Blood Count 3.66 M/mm3 (4.1-5.4); Red Cell Distribution Width 21.5 % (11.5-14.0); White Blood Count 6.5 K/mm3 (4.0-10.5)
[2020-08-03 06:32] LABS: ANION GAP 6.5 MEQ/L (5-15); BLOOD UREA NITROGEN 25 mg/dL (7-17); CHLORIDE 96 mmol/L (98-107); Calcium 8.2 mg/dL (8.4-10.2); Carbon Dioxide 40 mmol/L (22-30); Creatinine 1 0.64 mg/dL (0.52-1.04); EST GLOMERULAR FILTRATION RATE > 60.0 ML/MIN; Glucose 142 mg/dL (74-106); NT PRO BNP 12100 pg/mL (0-1800); SODIUM 139 mmol/L (137-145)
[2020-08-03] MEDS: POTASSIUM CHLORIDE 20 mEq IN WATER 100ML 20 MEQ/100 ML BAG IV SCH ×2 (06:47→12:17)
[2020-08-03] MEDS ORDERED: ULTRAM 50 MG PO PRN (08:03)
[2020-08-03] MEDS ORDERED: TYLENOL 325 MG PO PRN (08:03)
[2020-08-03] MEDS ORDERED: NON-FORMULARY ITEM (Cyclobenzaprine Hcl [Flexeril] 5 MG) PO PRN (08:03)
[2020-08-03] MEDS ORDERED: INSULIN ASPART SQ PRN (08:03)
[2020-08-03] MEDS ORDERED: Nitrostat 0.4 MG Tablet SL PRN (08:03)
[2020-08-03] MEDS ORDERED: MILK OF MAGNESIA 30 ML PO PRN (08:03)
--- NOTE | 2020-08-03 09:42 | PCM.SSS ---
History of Present Illness - Chief Complaint Chief Complaint: CHF History of Present Illness: is a 85 year old female pt of Dr. Mccain from [facility] (previously my pt) with CHF, CAD, DM, HTN who was admitted yesterday through ER with decreased alertness. Was found to have UTI and potassium of 2.8. She was started on IV rocephin, 2g daily; initial UCx result is negative. She is very hard of hearing and a poor historian. Overnight she was yelling and asking for her purse over and over. She asked me for her purse again this morning (it is at [facility]). - Review of Systems Constitutional: Lethargy, No Fever All Other Systems: Unable due to condition Medications & Allergies Home Medications: Home Medication List Buspirone HCl [Buspar] 10 mg PO BID 07/29/19 [History Confirmed 08/02/20] Glimepiride 2 mg [Amaryl 2 MG] 2 mg PO BID 07/29/19 [History Confirmed 06/12] Loratadine 10 mg [Claritin 10 mg] 10 mg PO DAILY 07/29/19 [History Confirmed 08/02/20] Metformin HCl 500 mg [Glucophage 500 MG] 500 mg PO TID 07/29/19 [History Confirmed 08/02/20] Nitroglycerin 0.4 mg Tablet [Nitrostat 0.4 MG Tablet] 0.4 mg SL Q5MIN PRN MR X 3 PRN 07/29/19 [History Confirmed 08/02/20] Solifenacin Succinate 5 mg PO DAILY 08/06/19 [History Confirmed 08/02/20] Aspirin EC 81 mg [Ecotrin 81 mg] 81 mg PO DAILY 04/09/20 [History Confirmed 08/02/20] Cholecalciferol (Vitamin D3) [Vitamin D3] 2,000 iu PO DAILY 04/09/20 [History Confirmed 08/02/20] Cyanocobalamin 500 Mcg [Vitamin B-12 500 MCG] 1,000 mcg PO DAILY 04/09/20 [History Confirmed 08/02/20] Ferrous Sulfate 325 mg [Feosol 325 mg] 325 mg PO DAILY 04/09/20 [History Confirmed 08/02/20] Furosemide 80 mg PO DAILY 04/09/20 [History Confirmed 08/02/20] Magnesium 250 mg PO DAILY 04/09/20 [History Confirmed 08/02/20] Omeprazole 20 mg PO QAM 04/09/20 [History Confirmed 08/02/20] Potassium Gluconate 99 mg PO DAILY 04/09/20 [History Confirmed 08/02/20] Acetaminophen 325 mg [Tylenol 325 mg] 650 mg PO Q4HPRN PRN 08/02/20 [History Confirmed 08/02/20] Calcium Carbonate [Elemental Calcium] 1,200 mg PO DAILY 08/02/20 [History Confirmed 08/02/20] Ceftriaxone 2 GM/50 ML PREMIX* [ROCEPHIN 2 Gm-D5w 50ML BAG] 2 gm IV HS 08/02/20 [History Confirmed 08/02/20] Cyclobenzaprine HCl [Flexeril] 5 mg PO Q8HPRN PRN 08/02/20 [History Confirmed 08/02/20] Hydralazine HCl 100 mg PO TID 08/02/20 [History Confirmed 08/02/20] Insulin Aspart [Novolog] 0 unit SQ QIDPRN PRN 08/02/20 [History Confirmed 08/02/20] Isosorbide Mononitrate 30 mg [Imdur 30 MG] 30 mg PO DAILY 08/02/20 [History Confirmed 08/02/20] Levothyroxine Sodium 75 Mcg [Synthroid 75 Mcg] 75 mcg PO DAILY 08/02/20 [History Confirmed 08/02/20] Magnesium Hydroxide 30 ml [Milk of Magnesia 30 ml] 30 ml PO DAILY PRN PRN 08/02/20 [History Confirmed 08/02/20] Metoprolol Tartrate 50 mg [Lopressor 50 MG] 100 mg PO BID 08/02/20 [History Confirmed 08/02/20] Multivitamin/Iron/Folic Acid [Centrum Women Tablet] 1 each PO DAILY 08/02/20 [History Confirmed 08/02/20] Rivaroxaban [Xarelto] 20 mg PO EVENING MEAL 08/02/20 [History Confirmed 08/02/20] Tramadol HCl 50 mg [Ultram 50 mg] 50 mg PO DAILY PRN PRN 08/02/20 [History Confirmed 08/02/20] Allergies/Adverse Reactions: Allergies Allergy/AdvReac Type Severity Reaction Status Date / Time dicyclomine [Dicyclomine] Allergy Intermediate NAUSEA, Verified 08/02/20 21:33 STOMACH PAIN Sulfa (Sulfonamide Allergy Unknown Verified 08/02/20 21:33 Antibiotics) [Sulfa(Sulfonamide Antibiotics)] atorvastatin [From Lipitor] Allergy Verified 08/02/20 21:33 Rypimum-Afw-Yfi Reductase Allergy Verified 08/02/20 21:33 Inhibitor - Past Medical History Past Medical History: Yes Neurological History: No Pertinent History ENT History: Cataracts, Macular Degeneration Cardiac History: Angina, Congestive Heart Failure, High Cholesterol, Hypertension Respiratory History: No Pertinent History Endocrine Medical History: Diabetes Type II Musculoskelatal History: Other GI Medical History: Irritable Bowel History: No Pertinent History Pyscho-Social History: Depression Reproductive Disorders: No Pertinent History Comment: hearing loss wears hearing aides, rib fx - Female History Are you now?: (unknown) - Past Surgical History Past Surgical History: Yes Neuro Surgical History: No Pertinent History Cardiac History: No Pertinent History, Cardiac Catheterization Respiratory Surgery: No Pertinent History GI Surgical History: Cholecystectomy, Exploratory Laparoscopy Genitourinary Surgical Hx: No Pertinent History Musculskeletal Surgical Hx: Orthopedic Surgery, Other Female Surgical History: Tubal Ligation Other Surgical History: Surgery to left pinky finger-russ insertion. bladder tie up, hx of L hip fx repair. L knee replacement. rt hip replacement - Social History Smoking Status: Unknown if ever smoked Exposure to second hand smoke: (unknown) Alcohol: None Drug Use: none Significant Family History: no pertinent family hx - Physical Exam Vital Signs: Vital Signs - 24 hr Temp Pulse Resp BP Pulse Ox 08/03/20 07:58 94 L 08/03/20 07:05 97.9 F 76 20 175/78 96 08/03/20 04:00 97.3 F 69 22 148/81 97 08/03/20 01:29 174/84 08/03/20 00:20 98.1 F 65 20 192/98 98 08/02/20 22:07 93 L 08/02/20 21:35 97.5 F 75 22 158/76 92 L 08/02/20 19:46 96 08/02/20 19:16 85 23 173/92 96 08/02/20 18:34 77 25 H 174/94 98 08/02/20 17:05 98.8 F 63 20 174/94 96 08/02/20 16:28 96 08/02/20 15:45 98.6 F 74 20 184/102 96 General Appearance: no apparent distress, alert, other (can read and answer short questions) Neurologic Exam: cooperative, other (asks for her purse) Eye Exam: eyes nml inspection Ears, Nose, Throat Exam: moist mucous membranes Neck Exam: normal inspection, non-tender, supple, No lymphadenopathy Respiratory Exam: lungs clear, diminished breath sounds, No crackles/rales, No rhonchi, No wheezing Cardiovascular Exam: normal heart sounds, irregular, No murmur Gastrointestinal/Abdomen Exam: soft, normal bowel sounds, No tenderness, No distention, No mass, No guarding, No rebound Back Exam: normal inspection, No rash Extremity Exam: swelling (1+ pretibial edema bilat) Wound Assessment: Skin/Wound Assessment Wound/Incision Assessment Start: 08/02/20 21:55 Text: Status: Active Freq: Q6H Protocol: Document 08/03/20 03:55 LL (Rec: 08/03/20 03:58 LL [id number]) Wound/Incision Assessment Posterior Coccyx Wound Assessment Shift Assessment Wound Type Pressure Ulcer Wound Stage Stage II Drainage Amount None Drainage Odor None/Absent General Appearance Open to air Wound Bed Greatest Portion Pale Lafontaine Surrounding Tissue Lafontaine Comment pt turned off area, barrier cream applied for comfort Wound Photo Photo Taken No Results - Labs Lab/Micro Results: Lab Results-Last 24 Hours 08/02/20 08/02/20 08/02/20 Range/Units 16:28 16:51 16:51 WBC 7.1 (4.0-10.5) K/mm3 RBC 3.71 L (4.1-5.4) M/mm3 Hgb 9.9 L (12.0-16.0) gm/dl Hct 33.4 L (35-47) % MCV 90.0 (78-100) fl MCH 26.7 (26-32) pg MCHC 29.6 L (32-36) g/dl RDW 21.3 H (11.5-14.0) % Plt Count 232 (150-450) K/mm3 MPV 10.1 (7.5-11.0) fl Gran % 82.5 H (36.0-66.0) % Eos # (Auto) 0.04 (0-0.5) Absolute Lymphs (auto) 0.86 L (1.0-4.6) Absolute Monos (auto) 0.33 (0.0-1.3) Lymphocytes % 12.1 L (24.0-44.0) % Monocytes % 4.7 (0.0-12.0) % Eosinophils % 0.6 (0.00-5.0) % Basophils % 0.1 (0.0-0.4) % Absolute Granulocytes 5.85 (1.4-6.9) Basophils # 0.01 (0-0.4) Sodium 135 L (137-145) mmol/L Potassium 2.8 L* (3.5-5.1) mmol/L Chloride 96 L (98-107) mmol/L Carbon Dioxide 34 H (22-30) mmol/L Anion Gap 8.0 (5-15) MEQ/L BUN 31 H (7-17) mg/dL Creatinine 0.66 (0.52-1.04) mg/dL Estimated GFR > 60.0 ML/MIN Glucose 160 H (74-106) mg/dL POC Glucometer (74 to 106) mg/dL Calcium 8.3 L (8.4-10.2) mg/dL Total Bilirubin 0.60 (0.2-1.3) mg/dL AST 33 (14-36) U/L ALT 19 (0-35) U/L Alkaline Phosphatase 61 (38-126) U/L Troponin I (0.000-0.034) ng/mL NT-Pro-B Natriuret Pep (0-1800) pg/mL Serum Total Protein 6.2 L (6.3-8.2) g/dL Albumin 3.2 L (3.5-5.0) g/dL Urine Color (YELLOW) Urine Appearance (CLEAR) Urine pH (5-6) Ur Specific [place] (1.005-1.025) Urine Protein (Negative) Urine Ketones (NEGATIVE) Urine Blood (0-5) Jayme/ul Urine Nitrite (NEGATIVE) Urine Bilirubin (NEGATIVE) Urine Urobilinogen (0-1) mg/dL Ur Leukocyte Esterase (NEGATIVE) Urine WBC (Auto) (0-5) /HPF Urine RBC (Auto) (0-2) /HPF U Hyaline Cast (Auto) (0-2) /LPF U Epithel Cells (Auto) (FEW) /HPF Urine Bacteria (Auto) (NEGATIVE) /HPF Urine Mucus (Auto) (NEGATIVE) /HPF Urine Culture Reflexed (NO) Urine Glucose (NEGATIVE) mg/dL Urine Opiates Level NEGATIVE (NEGATIVE) Ur Methadone NEGATIVE (NEGATIVE) Urine Barbiturates NEGATIVE (NEGATIVE) Ur Phencyclidine (PCP) NEGATIVE (NEGATIVE) Urine Amphetamine NEGATIVE (NEGATIVE) U Benzodiazepine Level NEGATIVE (NEGATIVE) Urine Cocaine NEGATIVE (NEGATIVE) Urine Marijuana (THC) NEGATIVE (NEGATIVE) SARS-CoV-2 (PCR) (NEGATIVE) 08/02/20 08/02/20 08/02/20 Range/Units 16:51 17:36 17:46 WBC (4.0-10.5) K/mm3 RBC (4.1-5.4) M/mm3 Hgb (12.0-16.0) gm/dl Hct (35-47) % MCV (78-100) fl MCH (26-32) pg MCHC (32-36) g/dl RDW (11.5-14.0) % Plt Count (150-450) K/mm3 MPV (7.5-11.0) fl Gran % (36.0-66.0) % Eos # (Auto) (0-0.5) Absolute Lymphs (auto) (1.0-4.6) Absolute Monos (auto) (0.0-1.3) Lymphocytes % (24.0-44.0) % Monocytes % (0.0-12.0) % Eosinophils % (0.00-5.0) % Basophils % (0.0-0.4) % Absolute Granulocytes (1.4-6.9) Basophils # (0-0.4) Sodium (137-145) mmol/L Potassium (3.5-5.1) mmol/L Chloride (98-107) mmol/L Carbon Dioxide (22-30) mmol/L Anion Gap (5-15) MEQ/L BUN (7-17) mg/dL Creatinine (0.52-1.04) mg/dL Estimated GFR ML/MIN Glucose (74-106) mg/dL POC Glucometer (74 to 106) mg/dL Calcium (8.4-10.2) mg/dL Total Bilirubin (0.2-1.3) mg/dL AST (14-36) U/L ALT (0-35) U/L Alkaline Phosphatase (38-126) U/L Troponin I < 0.012 (0.000-0.034) ng/mL NT-Pro-B Natriuret Pep 20403 H (0-1800) pg/mL Serum Total Protein (6.3-8.2) g/dL Albumin (3.5-5.0) g/dL Urine Color NASH (YELLOW) Urine Appearance CLOUDY (CLEAR) Urine pH 5.0 (5-6) Ur Specific [place] 1.023 (1.005-1.025) Urine Protein 30 (Negative) Urine Ketones TRACE (NEGATIVE) Urine Blood NEGATIVE (0-5) Jayme/ul Urine Nitrite NEGATIVE (NEGATIVE) Urine Bilirubin NEGATIVE (NEGATIVE) Urine Urobilinogen NEGATIVE (0-1) mg/dL Ur Leukocyte Esterase MODERATE (NEGATIVE) Urine WBC (Auto) 51-100 (0-5) /HPF Urine RBC (Auto) 3-5 (0-2) /HPF U Hyaline Cast (Auto) 3-5 (0-2) /LPF U Epithel Cells (Auto) RARE (FEW) /HPF Urine Bacteria (Auto) MODERATE (NEGATIVE) /HPF Urine Mucus (Auto) SLIGHT (NEGATIVE) /HPF Urine Culture Reflexed YES (NO) Urine Glucose NEGATIVE (NEGATIVE) mg/dL Urine Opiates Level (NEGATIVE) Ur Methadone (NEGATIVE) Urine Barbiturates (NEGATIVE) Ur Phencyclidine (PCP) (NEGATIVE) Urine Amphetamine (NEGATIVE) U Benzodiazepine Level (NEGATIVE) Urine Cocaine (NEGATIVE) Urine Marijuana (THC) (NEGATIVE) SARS-CoV-2 (PCR) (NEGATIVE) 08/02/20 08/02/20 08/02/20 Range/Units 18:22 19:45 22:14 WBC (4.0-10.5) K/mm3 RBC (4.1-5.4) M/mm3 Hgb (12.0-16.0) gm/dl Hct (35-47) % MCV (78-100) fl MCH (26-32) pg MCHC (32-36) g/dl RDW (11.5-14.0) % Plt Count (150-450) K/mm3 MPV (7.5-11.0) fl Gran % (36.0-66.0) % Eos # (Auto) (0-0.5) Absolute Lymphs (auto) (1.0-4.6) Absolute Monos (auto) (0.0-1.3) Lymphocytes % (24.0-44.0) % Monocytes % (0.0-12.0) % Eosinophils % (0.00-5.0) % Basophils % (0.0-0.4) % Absolute Granulocytes (1.4-6.9) Basophils # (0-0.4) Sodium (137-145) mmol/L Potassium (3.5-5.1) mmol/L Chloride (98-107) mmol/L Carbon Dioxide (22-30) mmol/L Anion Gap (5-15) MEQ/L BUN (7-17) mg/dL Creatinine (0.52-1.04) mg/dL Estimated GFR ML/MIN Glucose (74-106) mg/dL POC Glucometer 116 H (74 to 106) mg/dL Calcium (8.4-10.2) mg/dL Total Bilirubin (0.2-1.3) mg/dL AST (14-36) U/L ALT (0-35) U/L Alkaline Phosphatase (38-126) U/L Troponin I < 0.012 (0.000-0.034) ng/mL NT-Pro-B Natriuret Pep (0-1800) pg/mL Serum Total Protein (6.3-8.2) g/dL Albumin (3.5-5.0) g/dL Urine Color (YELLOW) Urine Appearance (CLEAR) Urine pH (5-6) Ur Specific [place] (1.005-1.025) Urine Protein (Negative) Urine Ketones (NEGATIVE) Urine Blood (0-5) Jayme/ul Urine Nitrite (NEGATIVE) Urine Bilirubin (NEGATIVE) Urine Urobilinogen (0-1) mg/dL Ur Leukocyte Esterase (NEGATIVE) Urine WBC (Auto) (0-5) /HPF Urine RBC (Auto) (0-2) /HPF U Hyaline Cast (Auto) (0-2) /LPF U Epithel Cells (Auto) (FEW) /HPF Urine Bacteria (Auto) (NEGATIVE) /HPF Urine Mucus (Auto) (NEGATIVE) /HPF Urine Culture Reflexed (NO) Urine Glucose (NEGATIVE) mg/dL Urine Opiates Level (NEGATIVE) Ur Methadone (NEGATIVE) Urine Barbiturates (NEGATIVE) Ur Phencyclidine (PCP) (NEGATIVE) Urine Amphetamine (NEGATIVE) U Benzodiazepine Level (NEGATIVE) Urine Cocaine (NEGATIVE) Urine Marijuana (THC) (NEGATIVE) SARS-CoV-2 (PCR) NEGATIVE (NEGATIVE) 08/02/20 08/03/20 08/03/20 Range/Units 22:45 04:00 04:40 WBC (4.0-10.5) K/mm3 RBC (4.1-5.4) M/mm3 Hgb (12.0-16.0) gm/dl Hct (35-47) % MCV (78-100) fl MCH (26-32) pg MCHC (32-36) g/dl RDW (11.5-14.0) % Plt Count (150-450) K/mm3 MPV (7.5-11.0) fl Gran % (36.0-66.0) % Eos # (Auto) (0-0.5) Absolute Lymphs (auto) (1.0-4.6) Absolute Monos (auto) (0.0-1.3) Lymphocytes % (24.0-44.0) % Monocytes % (0.0-12.0) % Eosinophils % (0.00-5.0) % Basophils % (0.0-0.4) % Absolute Granulocytes (1.4-6.9) Basophils # (0-0.4) Sodium (137-145) mmol/L Potassium (3.5-5.1) mmol/L Chloride (98-107) mmol/L Carbon Dioxide (22-30) mmol/L Anion Gap (5-15) MEQ/L BUN (7-17) mg/dL Creatinine (0.52-1.04) mg/dL Estimated GFR ML/MIN Glucose (74-106) mg/dL POC Glucometer 129 H (74 to 106) mg/dL Calcium (8.4-10.2) mg/dL Total Bilirubin (0.2-1.3) mg/dL AST (14-36) U/L ALT (0-35) U/L Alkaline Phosphatase (38-126) U/L Troponin I < 0.012 < 0.012 (0.000-0.034) ng/mL NT-Pro-B Natriuret Pep (0-1800) pg/mL Serum Total Protein (6.3-8.2) g/dL Albumin (3.5-5.0) g/dL Urine Color (YELLOW) Urine Appearance (CLEAR) Urine pH (5-6) Ur Specific [place] (1.005-1.025) Urine Protein (Negative) Urine Ketones (NEGATIVE) Urine Blood (0-5) Jayme/ul Urine Nitrite (NEGATIVE) Urine Bilirubin (NEGATIVE) Urine Urobilinogen (0-1) mg/dL Ur Leukocyte Esterase (NEGATIVE) Urine WBC (Auto) (0-5) /HPF Urine RBC (Auto) (0-2) /HPF U Hyaline Cast (Auto) (0-2) /LPF U Epithel Cells (Auto) (FEW) /HPF Urine Bacteria (Auto) (NEGATIVE) /HPF Urine Mucus (Auto) (NEGATIVE) /HPF Urine Culture Reflexed (NO) Urine Glucose (NEGATIVE) mg/dL Urine Opiates Level (NEGATIVE) Ur Methadone (NEGATIVE) Urine Barbiturates (NEGATIVE) Ur Phencyclidine (PCP) (NEGATIVE) Urine Amphetamine (NEGATIVE) U Benzodiazepine Level (NEGATIVE) Urine Cocaine (NEGATIVE) Urine Marijuana (THC) (NEGATIVE) SARS-CoV-2 (PCR) (NEGATIVE) 08/03/20 08/03/20 Range/Units 04:40 04:40 WBC 6.5 (4.0-10.5) K/mm3 RBC 3.66 L (4.1-5.4) M/mm3 Hgb 9.7 L (12.0-16.0) gm/dl Hct 32.9 L (35-47) % MCV 89.9 (78-100) fl MCH 26.5 (26-32) pg MCHC 29.5 L (32-36) g/dl RDW 21.5 H (11.5-14.0) % Plt Count 239 (150-450) K/mm3 MPV 10.1 (7.5-11.0) fl Gran % (36.0-66.0) % Eos # (Auto) (0-0.5) Absolute Lymphs (auto) (1.0-4.6) Absolute Monos (auto) (0.0-1.3) Lymphocytes % (24.0-44.0) % Monocytes % (0.0-12.0) % Eosinophils % (0.00-5.0) % Basophils % (0.0-0.4) % Absolute Granulocytes (1.4-6.9) Basophils # (0-0.4) Sodium 139 (137-145) mmol/L Potassium 3.0 L (3.5-5.1) mmol/L Chloride 96 L (98-107) mmol/L Carbon Dioxide 40 H (22-30) mmol/L Anion Gap 6.5 (5-15) MEQ/L BUN 25 H (7-17) mg/dL Creatinine 0.64 (0.52-1.04) mg/dL Estimated GFR > 60.0 ML/MIN Glucose 142 H (74-106) mg/dL POC Glucometer (74 to 106) mg/dL Calcium 8.2 L (8.4-10.2) mg/dL Total Bilirubin (0.2-1.3) mg/dL AST (14-36) U/L ALT (0-35) U/L Alkaline Phosphatase (38-126) U/L Troponin I (0.000-0.034) ng/mL NT-Pro-B Natriuret Pep 65620 H (0-1800) pg/mL Serum Total Protein (6.3-8.2) g/dL Albumin (3.5-5.0) g/dL Urine Color (YELLOW) Urine Appearance (CLEAR) Urine pH (5-6) Ur Specific [place] (1.005-1.025) Urine Protein (Negative) Urine Ketones (NEGATIVE) Urine Blood (0-5) Jayme/ul Urine Nitrite (NEGATIVE) Urine Bilirubin (NEGATIVE) Urine Urobilinogen (0-1) mg/dL Ur Leukocyte Esterase (NEGATIVE) Urine WBC (Auto) (0-5) /HPF Urine RBC (Auto) (0-2) /HPF U Hyaline Cast (Auto) (0-2) /LPF U Epithel Cells (Auto) (FEW) /HPF Urine Bacteria (Auto) (NEGATIVE) /HPF Urine Mucus (Auto) (NEGATIVE) /HPF Urine Culture Reflexed (NO) Urine Glucose (NEGATIVE) mg/dL Urine Opiates Level (NEGATIVE) Ur Methadone (NEGATIVE) Urine Barbiturates (NEGATIVE) Ur Phencyclidine (PCP) (NEGATIVE) Urine Amphetamine (NEGATIVE) U Benzodiazepine Level (NEGATIVE) Urine Cocaine (NEGATIVE) Urine Marijuana (THC) (NEGATIVE) SARS-CoV-2 (PCR) (NEGATIVE) Microbiology 08/02/20 17:36 Urine Culture - Preliminary Clean Catch Midstream NO GROWTH TO DATE - Radiology Impressions Radiology Exams & Impressions: Radiology Procedures Category Date Time Status CHEST 1 VIEW (PORTABLE) Stat Exams 08/02/20 15:47 Completed HEAD WITHOUT CONTRAST [CT] Stat Exams 08/02/20 15:49 Completed - Other Procedures and Tests Respiratory Therapy 08/02/20 20:59 Oxygen NASAL CANNULA 2 lpm Assessment/Plan (1) Hypokalemia Current Visit: Yes Status: Acute Assessment & Plan: Repleting with 40mEq K rider currently; will check Mg in the post draw. If she can be repleted today, may be able to return to [facility] this afternoon. Code(s): E87.6 - HYPOKALEMIA (2) Altered mental status Current Visit: Yes Status: Acute Qualifiers: Altered mental status type: disorientation Qualified Code(s): R41.0 - Disorientation, unspecified Code(s): R41.82 - ALTERED MENTAL STATUS, UNSPECIFIED (3) Congestive heart failure Current Visit: Yes Status: Chronic Qualifiers: Heart failure type: systolic Heart failure chronicity: acute on chronic Qualified Code(s): I50.23 - Acute on chronic systolic (congestive) heart failure Code(s): I50.9 - HEART FAILURE, UNSPECIFIED (4) UTI (urinary tract infection) Current Visit: Yes Status: Acute Qualifiers: Urinary tract infection type: acute cystitis Hematuria presence: without hematuria Qualified Code(s): N30.00 - Acute cystitis without hematuria Assessment & Plan: Rocephin IV day #2 - if she returns to [facility] this afternoon (after today's dose), will need another 2g injection IM at [facility] tomorrow. Code(s): N39.0 - URINARY TRACT INFECTION, SITE NOT SPECIFIED (5) Diabetes mellitus Current Visit: No Status: Chronic Qualifiers: Diabetes mellitus type: type 2 Diabetes mellitus skilled nursing insulin use: without skilled nursing use Diabetes mellitus complication status: with kidney complications Diabetes mellitus complication detail: with chronic kidney disease Chronic kidney disease stage: stage 2 (mild) Qualified Code(s): E11.22 - Type 2 diabetes mellitus with diabetic chronic kidney disease; N18.2 - Chronic kidney disease, stage 2 (mild) Code(s): E11.9 - TYPE 2 DIABETES MELLITUS WITHOUT COMPLICATIONS (6) HTN (hypertension) Current Visit: No Status: Chronic Qualifiers: Hypertension type: essential hypertension Qualified Code(s): I10 - Essential (primary) hypertension Code(s): I10 - ESSENTIAL (PRIMARY) HYPERTENSION Hospital Summary - Hospital Course Hospital Course: Pt is 85 yo female pt of Dr. Mccain from [facility] with CHF, CAD, DM, afib who was admitted from [facility] with UTI and hypokalemia. Also found to have elevated BNP and IV lasix given. Started on IV rocephin. Repleting potassium; will return to [facility] when potassium returns to normal. Will make sure pt gets 3d of the rocephin (final culture is pending). - Vitals & Intake/Output Vital Signs: Vital Signs Temperature 97.9 F 08/03/20 07:05 Pulse Rate 76 08/03/20 07:05 Respiratory Rate 20 08/03/20 07:05 Blood Pressure 175/78 08/03/20 07:05 O2 Sat by Pulse Oximetry 94 L 08/03/20 07:58 Intake & Output: Intake & Output 07/31/20 08/01/20 08/02/20 08/03/20 11:59 11:59 11:59 11:59 Intake Total 914 Output Total 0 Balance 914 Weight 71.8 kg - Lab Result Diagrams: 08/03/20 04:40 08/03/20 04:40 Lab Results-Last 24 Hrs: Lab Results-Last 24 Hours 08/02/20 08/02/20 08/02/20 Range/Units 16:28 16:51 16:51 WBC 7.1 (4.0-10.5) K/mm3 RBC 3.71 L (4.1-5.4) M/mm3 Hgb 9.9 L (12.0-16.0) gm/dl Hct 33.4 L (35-47) % MCV 90.0 (78-100) fl MCH 26.7 (26-32) pg MCHC 29.6 L (32-36) g/dl RDW 21.3 H (11.5-14.0) % Plt Count 232 (150-450) K/mm3 MPV 10.1 (7.5-11.0) fl Gran % 82.5 H (36.0-66.0) % Eos # (Auto) 0.04 (0-0.5) Absolute Lymphs (auto) 0.86 L (1.0-4.6) Absolute Monos (auto) 0.33 (0.0-1.3) Lymphocytes % 12.1 L (24.0-44.0) % Monocytes % 4.7 (0.0-12.0) % Eosinophils % 0.6 (0.00-5.0) % Basophils % 0.1 (0.0-0.4) % Absolute Granulocytes 5.85 (1.4-6.9) Basophils # 0.01 (0-0.4) Sodium 135 L (137-145) mmol/L Potassium 2.8 L* (3.5-5.1) mmol/L Chloride 96 L (98-107) mmol/L Carbon Dioxide 34 H (22-30) mmol/L Anion Gap 8.0 (5-15) MEQ/L BUN 31 H (7-17) mg/dL Creatinine 0.66 (0.52-1.04) mg/dL Estimated GFR > 60.0 ML/MIN Glucose 160 H (74-106) mg/dL POC Glucometer (74 to 106) mg/dL Calcium 8.3 L (8.4-10.2) mg/dL Total Bilirubin 0.60 (0.2-1.3) mg/dL AST 33 (14-36) U/L ALT 19 (0-35) U/L Alkaline Phosphatase 61 (38-126) U/L Troponin I (0.000-0.034) ng/mL NT-Pro-B Natriuret Pep (0-1800) pg/mL Serum Total Protein 6.2 L (6.3-8.2) g/dL Albumin 3.2 L (3.5-5.0) g/dL Urine Color (YELLOW) Urine Appearance (CLEAR) Urine pH (5-6) Ur Specific [place] (1.005-1.025) Urine Protein (Negative) Urine Ketones (NEGATIVE) Urine Blood (0-5) Jayme/ul Urine Nitrite (NEGATIVE) Urine Bilirubin (NEGATIVE) Urine Urobilinogen (0-1) mg/dL Ur Leukocyte Esterase (NEGATIVE) Urine WBC (Auto) (0-5) /HPF Urine RBC (Auto) (0-2) /HPF U Hyaline Cast (Auto) (0-2) /LPF U Epithel Cells (Auto) (FEW) /HPF Urine Bacteria (Auto) (NEGATIVE) /HPF Urine Mucus (Auto) (NEGATIVE) /HPF Urine Culture Reflexed (NO) Urine Glucose (NEGATIVE) mg/dL Urine Opiates Level NEGATIVE (NEGATIVE) Ur Methadone NEGATIVE (NEGATIVE) Urine Barbiturates NEGATIVE (NEGATIVE) Ur Phencyclidine (PCP) NEGATIVE (NEGATIVE) Urine Amphetamine NEGATIVE (NEGATIVE) U Benzodiazepine Level NEGATIVE (NEGATIVE) Urine Cocaine NEGATIVE (NEGATIVE) Urine Marijuana (THC) NEGATIVE (NEGATIVE) SARS-CoV-2 (PCR) (NEGATIVE) 08/02/20 08/02/20 08/02/20 Range/Units 16:51 17:36 17:46 WBC (4.0-10.5) K/mm3 RBC (4.1-5.4) M/mm3 Hgb (12.0-16.0) gm/dl Hct (35-47) % MCV (78-100) fl MCH (26-32) pg MCHC (32-36) g/dl RDW (11.5-14.0) % Plt Count (150-450) K/mm3 MPV (7.5-11.0) fl Gran % (36.0-66.0) % Eos # (Auto) (0-0.5) Absolute Lymphs (auto) (1.0-4.6) Absolute Monos (auto) (0.0-1.3) Lymphocytes % (24.0-44.0) % Monocytes % (0.0-12.0) % Eosinophils % (0.00-5.0) % Basophils % (0.0-0.4) % Absolute Granulocytes (1.4-6.9) Basophils # (0-0.4) Sodium (137-145) mmol/L Potassium (3.5-5.1) mmol/L Chloride (98-107) mmol/L Carbon Dioxide (22-30) mmol/L Anion Gap (5-15) MEQ/L BUN (7-17) mg/dL Creatinine (0.52-1.04) mg/dL Estimated GFR ML/MIN Glucose (74-106) mg/dL POC Glucometer (74 to 106) mg/dL Calcium (8.4-10.2) mg/dL Total Bilirubin (0.2-1.3) mg/dL AST (14-36) U/L ALT (0-35) U/L Alkaline Phosphatase (38-126) U/L Troponin I < 0.012 (0.000-0.034) ng/mL NT-Pro-B Natriuret Pep 34440 H (0-1800) pg/mL Serum Total Protein (6.3-8.2) g/dL Albumin (3.5-5.0) g/dL Urine Color NASH (YELLOW) Urine Appearance CLOUDY (CLEAR) Urine pH 5.0 (5-6) Ur Specific [place] 1.023 (1.005-1.025) Urine Protein 30 (Negative) Urine Ketones TRACE (NEGATIVE) Urine Blood NEGATIVE (0-5) Jayme/ul Urine Nitrite NEGATIVE (NEGATIVE) Urine Bilirubin NEGATIVE (NEGATIVE) Urine Urobilinogen NEGATIVE (0-1) mg/dL Ur Leukocyte Esterase MODERATE (NEGATIVE) Urine WBC (Auto) 51-100 (0-5) /HPF Urine RBC (Auto) 3-5 (0-2) /HPF U Hyaline Cast (Auto) 3-5 (0-2) /LPF U Epithel Cells (Auto) RARE (FEW) /HPF Urine Bacteria (Auto) MODERATE (NEGATIVE) /HPF Urine Mucus (Auto) SLIGHT (NEGATIVE) /HPF Urine Culture Reflexed YES (NO) Urine Glucose NEGATIVE (NEGATIVE) mg/dL Urine Opiates Level (NEGATIVE) Ur Methadone (NEGATIVE) Urine Barbiturates (NEGATIVE) Ur Phencyclidine (PCP) (NEGATIVE) Urine Amphetamine (NEGATIVE) U Benzodiazepine Level (NEGATIVE) Urine Cocaine (NEGATIVE) Urine Marijuana (THC) (NEGATIVE) SARS-CoV-2 (PCR) (NEGATIVE) 08/02/20 08/02/20 08/02/20 Range/Units 18:22 19:45 22:14 WBC (4.0-10.5) K/mm3 RBC (4.1-5.4) M/mm3 Hgb (12.0-16.0) gm/dl Hct (35-47) % MCV (78-100) fl MCH (26-32) pg MCHC (32-36) g/dl RDW (11.5-14.0) % Plt Count (150-450) K/mm3 MPV (7.5-11.0) fl Gran % (36.0-66.0) % Eos # (Auto) (0-0.5) Absolute Lymphs (auto) (1.0-4.6) Absolute Monos (auto) (0.0-1.3) Lymphocytes % (24.0-44.0) % Monocytes % (0.0-12.0) % Eosinophils % (0.00-5.0) % Basophils % (0.0-0.4) % Absolute Granulocytes (1.4-6.9) Basophils # (0-0.4) Sodium (137-145) mmol/L Potassium (3.5-5.1) mmol/L Chloride (98-107) mmol/L Carbon Dioxide (22-30) mmol/L Anion Gap (5-15) MEQ/L BUN (7-17) mg/dL Creatinine (0.52-1.04) mg/dL Estimated GFR ML/MIN Glucose (74-106) mg/dL POC Glucometer 116 H (74 to 106) mg/dL Calcium (8.4-10.2) mg/dL Total Bilirubin (0.2-1.3) mg/dL AST (14-36) U/L ALT (0-35) U/L Alkaline Phosphatase (38-126) U/L Troponin I < 0.012 (0.000-0.034) ng/mL NT-Pro-B Natriuret Pep (0-1800) pg/mL Serum Total Protein (6.3-8.2) g/dL Albumin (3.5-5.0) g/dL Urine Color (YELLOW) Urine Appearance (CLEAR) Urine pH (5-6) Ur Specific [place] (1.005-1.025) Urine Protein (Negative) Urine Ketones (NEGATIVE) Urine Blood (0-5) Jayme/ul Urine Nitrite (NEGATIVE) Urine Bilirubin (NEGATIVE) Urine Urobilinogen (0-1) mg/dL Ur Leukocyte Esterase (NEGATIVE) Urine WBC (Auto) (0-5) /HPF Urine RBC (Auto) (0-2) /HPF U Hyaline Cast (Auto) (0-2) /LPF U Epithel Cells (Auto) (FEW) /HPF Urine Bacteria (Auto) (NEGATIVE) /HPF Urine Mucus (Auto) (NEGATIVE) /HPF Urine Culture Reflexed (NO) Urine Glucose (NEGATIVE) mg/dL Urine Opiates Level (NEGATIVE) Ur Methadone (NEGATIVE) Urine Barbiturates (NEGATIVE) Ur Phencyclidine (PCP) (NEGATIVE) Urine Amphetamine (NEGATIVE) U Benzodiazepine Level (NEGATIVE) Urine Cocaine (NEGATIVE) Urine Marijuana (THC) (NEGATIVE) SARS-CoV-2 (PCR) NEGATIVE (NEGATIVE) 08/02/20 08/03/20 08/03/20 Range/Units 22:45 04:00 04:40 WBC (4.0-10.5) K/mm3 RBC (4.1-5.4) M/mm3 Hgb (12.0-16.0) gm/dl Hct (35-47) % MCV (78-100) fl MCH (26-32) pg MCHC (32-36) g/dl RDW (11.5-14.0) % Plt Count (150-450) K/mm3 MPV (7.5-11.0) fl Gran % (36.0-66.0) % Eos # (Auto) (0-0.5) Absolute Lymphs (auto) (1.0-4.6) Absolute Monos (auto) (0.0-1.3) Lymphocytes % (24.0-44.0) % Monocytes % (0.0-12.0) % Eosinophils % (0.00-5.0) % Basophils % (0.0-0.4) % Absolute Granulocytes (1.4-6.9) Basophils # (0-0.4) Sodium (137-145) mmol/L Potassium (3.5-5.1) mmol/L Chloride (98-107) mmol/L Carbon Dioxide (22-30) mmol/L Anion Gap (5-15) MEQ/L BUN (7-17) mg/dL Creatinine (0.52-1.04) mg/dL Estimated GFR ML/MIN Glucose (74-106) mg/dL POC Glucometer 129 H (74 to 106) mg/dL Calcium (8.4-10.2) mg/dL Total Bilirubin (0.2-1.3) mg/dL AST (14-36) U/L ALT (0-35) U/L Alkaline Phosphatase (38-126) U/L Troponin I < 0.012 < 0.012 (0.000-0.034) ng/mL NT-Pro-B Natriuret Pep (0-1800) pg/mL Serum Total Protein (6.3-8.2) g/dL Albumin (3.5-5.0) g/dL Urine Color (YELLOW) Urine Appearance (CLEAR) Urine pH (5-6) Ur Specific [place] (1.005-1.025) Urine Protein (Negative) Urine Ketones (NEGATIVE) Urine Blood (0-5) Jayme/ul Urine Nitrite (NEGATIVE) Urine Bilirubin (NEGATIVE) Urine Urobilinogen (0-1) mg/dL Ur Leukocyte Esterase (NEGATIVE) Urine WBC (Auto) (0-5) /HPF Urine RBC (Auto) (0-2) /HPF U Hyaline Cast (Auto) (0-2) /LPF U Epithel Cells (Auto) (FEW) /HPF Urine Bacteria (Auto) (NEGATIVE) /HPF Urine Mucus (Auto) (NEGATIVE) /HPF Urine Culture Reflexed (NO) Urine Glucose (NEGATIVE) mg/dL Urine Opiates Level (NEGATIVE) Ur Methadone (NEGATIVE) Urine Barbiturates (NEGATIVE) Ur Phencyclidine (PCP) (NEGATIVE) Urine Amphetamine (NEGATIVE) U Benzodiazepine Level (NEGATIVE) Urine Cocaine (NEGATIVE) Urine Marijuana (THC) (NEGATIVE) SARS-CoV-2 (PCR) (NEGATIVE) 08/03/20 08/03/20 Range/Units 04:40 04:40 WBC 6.5 (4.0-10.5) K/mm3 RBC 3.66 L (4.1-5.4) M/mm3 Hgb 9.7 L (12.0-16.0) gm/dl Hct 32.9 L (35-47) % MCV 89.9 (78-100) fl MCH 26.5 (26-32) pg MCHC 29.5 L (32-36) g/dl RDW 21.5 H (11.5-14.0) % Plt Count 239 (150-450) K/mm3 MPV 10.1 (7.5-11.0) fl Gran % (36.0-66.0) % Eos # (Auto) (0-0.5) Absolute Lymphs (auto) (1.0-4.6) Absolute Monos (auto) (0.0-1.3) Lymphocytes % (24.0-44.0) % Monocytes % (0.0-12.0) % Eosinophils % (0.00-5.0) % Basophils % (0.0-0.4) % Absolute Granulocytes (1.4-6.9) Basophils # (0-0.4) Sodium 139 (137-145) mmol/L Potassium 3.0 L (3.5-5.1) mmol/L Chloride 96 L (98-107) mmol/L Carbon Dioxide 40 H (22-30) mmol/L Anion Gap 6.5 (5-15) MEQ/L BUN 25 H (7-17) mg/dL Creatinine 0.64 (0.52-1.04) mg/dL Estimated GFR > 60.0 ML/MIN Glucose 142 H (74-106) mg/dL POC Glucometer (74 to 106) mg/dL Calcium 8.2 L (8.4-10.2) mg/dL Total Bilirubin (0.2-1.3) mg/dL AST (14-36) U/L ALT (0-35) U/L Alkaline Phosphatase (38-126) U/L Troponin I (0.000-0.034) ng/mL NT-Pro-B Natriuret Pep 75721 H (0-1800) pg/mL Serum Total Protein (6.3-8.2) g/dL Albumin (3.5-5.0) g/dL Urine Color (YELLOW) Urine Appearance (CLEAR) Urine pH (5-6) Ur Specific [place] (1.005-1.025) Urine Protein (Negative) Urine Ketones (NEGATIVE) Urine Blood (0-5) Jayme/ul Urine Nitrite (NEGATIVE) Urine Bilirubin (NEGATIVE) Urine Urobilinogen (0-1) mg/dL Ur Leukocyte Esterase (NEGATIVE) Urine WBC (Auto) (0-5) /HPF Urine RBC (Auto) (0-2) /HPF U Hyaline Cast (Auto) (0-2) /LPF U Epithel Cells (Auto) (FEW) /HPF Urine Bacteria (Auto) (NEGATIVE) /HPF Urine Mucus (Auto) (NEGATIVE) /HPF Urine Culture Reflexed (NO) Urine Glucose (NEGATIVE) mg/dL Urine Opiates Level (NEGATIVE) Ur Methadone (NEGATIVE) Urine Barbiturates (NEGATIVE) Ur Phencyclidine (PCP) (NEGATIVE) Urine Amphetamine (NEGATIVE) U Benzodiazepine Level (NEGATIVE) Urine Cocaine (NEGATIVE) Urine Marijuana (THC) (NEGATIVE) SARS-CoV-2 (PCR) (NEGATIVE) Micro Results-Entire Visit: Microbiology 08/02/20 17:36 Urine Culture - Preliminary Clean Catch Midstream NO GROWTH TO DATE - Radiology Exams Ordered Rad Exams-Entire Visit: Radiology Procedures Category Date Time Status CHEST 1 VIEW (PORTABLE) Stat Exams 08/02/20 15:47 Completed HEAD WITHOUT CONTRAST [CT] Stat Exams 08/02/20 15:49 Completed - Procedures and Test Procedures and Tests throughout Hospitalization: Therapy Orders & Screens 08/02/20 20:59 Oxygen NASAL CANNULA 2 lpm Comment: Diagnosis: CHF - Discharge Disposition: Home, Self-Care Condition: Stable Prescriptions: No Action Buspirone HCl [Buspar] 10 mg PO BID Metformin HCl 500 mg [Glucophage 500 MG] 500 mg PO TID Loratadine 10 mg [Claritin 10 mg] 10 mg PO DAILY Glimepiride 2 mg [Amaryl 2 MG] 2 mg PO BID Nitroglycerin 0.4 mg Tablet [Nitrostat 0.4 MG Tablet] 0.4 mg SL Q5MIN PRN MR X 3 PRN PRN Reason: cp Solifenacin Succinate 5 mg PO DAILY Potassium Gluconate 99 mg PO DAILY Magnesium 250 mg PO DAILY Cholecalciferol (Vitamin D3) [Vitamin D3] 2,000 iu PO DAILY Cyanocobalamin 500 Mcg [Vitamin B-12 500 MCG] 1,000 mcg PO DAILY Aspirin EC 81 mg [Ecotrin 81 mg] 81 mg PO DAILY Furosemide 80 mg PO DAILY Omeprazole 20 mg PO QAM Ferrous Sulfate 325 mg [Feosol 325 mg] 325 mg PO DAILY Levothyroxine Sodium 75 Mcg [Synthroid 75 Mcg] 75 mcg PO DAILY Rivaroxaban [Xarelto] 20 mg PO EVENING MEAL Insulin Aspart [Novolog] 0 unit SQ QIDPRN PRN PRN Reason: Hyperglycemia Metoprolol Tartrate 50 mg [Lopressor 50 MG] 100 mg PO BID Magnesium Hydroxide 30 ml [Milk of Magnesia 30 ml] 30 ml PO DAILY PRN PRN PRN Reason: Constipation Isosorbide Mononitrate 30 mg [Imdur 30 MG] 30 mg PO DAILY Hydralazine HCl 100 mg PO TID Cyclobenzaprine HCl [Flexeril] 5 mg PO Q8HPRN PRN PRN Reason: Muscle Spasms Multivitamin/Iron/Folic Acid [Centrum Women Tablet] 1 each PO DAILY Ceftriaxone 2 GM/50 ML PREMIX* [ROCEPHIN 2 Gm-D5w 50ML BAG] 2 gm IV HS Calcium Carbonate [Elemental Calcium] 1,200 mg PO DAILY Acetaminophen 325 mg [Tylenol 325 mg] 650 mg PO Q4HPRN PRN PRN Reason: Pain And/Or Fever Tramadol HCl 50 mg [Ultram 50 mg] 50 mg PO DAILY PRN PRN PRN Reason: Pain Follow up with: ULISSES MOCK [Primary Care Provider] -
[2020-08-03] MEDS ORDERED: VITAMIN D PO SCH (10:00)
[2020-08-03] MEDS ORDERED: MAG-OX 400 PO SCH (10:00)
[2020-08-03] MEDS ORDERED: SOLIFENACIN SUCCINATE 5 MG PO SCH (10:00)
[2020-08-03] MEDS ORDERED: BUSPAR 5 MG PO SCH (10:00)
[2020-08-03] MEDS ORDERED: Protonix 40MG Tablet PO SCH (10:00)
[2020-08-03] MEDS ORDERED: CHOLECALCIFEROL PO SCH (10:00)
[2020-08-03] MEDS ORDERED: NON-FORMULARY ITEM (Omeprazole [Omeprazole] 20 MG) PO SCH (10:00)
[2020-08-03] MEDS ORDERED: CLARITIN 10 MG PO SCH (10:00)
[2020-08-03] MEDS ORDERED: SYNTHROID 75 MCG PO SCH (10:00)
[2020-08-03] MEDS ORDERED: ECOTRIN 81 MG PO SCH (10:00)
[2020-08-03] MEDS ORDERED: Imdur 30 MG PO SCH (10:00)
[2020-08-03] MEDS ORDERED: NON-FORMULARY ITEM (Magnesium [Magnesium] 250 MG) PO SCH (10:00)
[2020-08-03] MEDS ORDERED: NON-FORMULARY ITEM (Buspirone Hcl [Buspar] 10 MG) PO SCH (10:00)
[2020-08-03] MEDS ORDERED: Cyclobenzaprine 10 MG PO PRN (10:08)
[2020-08-03] MEDS ORDERED: HUMALOG SQ PRN (10:15)
[2020-08-03 12:15] VITALS: BP 133/72; PULSE 88; O2SAT 95
--- NOTE | 2020-08-03 14:02 | PCM.DCORD ---
- Discharge Disposition: DC TO [facility] Condition: Stable Prescriptions: New Ceftriaxone Sodium [Ceftriaxone] 1 gm IM DAILY #2 vial Continue Buspirone HCl [Buspar] 10 mg PO BID Metformin HCl 500 mg [Glucophage 500 MG] 500 mg PO TID Loratadine 10 mg [Claritin 10 mg] 10 mg PO DAILY Glimepiride 2 mg [Amaryl 2 MG] 2 mg PO BID Nitroglycerin 0.4 mg Tablet [Nitrostat 0.4 MG Tablet] 0.4 mg SL Q5MIN PRN MR X 3 PRN PRN Reason: cp Solifenacin Succinate 5 mg PO DAILY Magnesium 250 mg PO DAILY Cholecalciferol (Vitamin D3) [Vitamin D3] 2,000 iu PO DAILY Cyanocobalamin 500 Mcg [Vitamin B-12 500 MCG] 1,000 mcg PO DAILY Aspirin EC 81 mg [Ecotrin 81 mg] 81 mg PO DAILY Furosemide 80 mg PO DAILY Omeprazole 20 mg PO QAM Ferrous Sulfate 325 mg [Feosol 325 mg] 325 mg PO DAILY Levothyroxine Sodium 75 Mcg [Synthroid 75 Mcg] 75 mcg PO DAILY Rivaroxaban [Xarelto] 20 mg PO EVENING MEAL Insulin Aspart [Novolog] 0 unit SQ QIDPRN PRN PRN Reason: Hyperglycemia Metoprolol Tartrate 50 mg [Lopressor 50 MG] 100 mg PO BID Magnesium Hydroxide 30 ml [Milk of Magnesia 30 ml] 30 ml PO DAILY PRN PRN PRN Reason: Constipation Isosorbide Mononitrate 30 mg [Imdur 30 MG] 30 mg PO DAILY Hydralazine HCl 100 mg PO TID Cyclobenzaprine HCl [Flexeril] 5 mg PO Q8HPRN PRN PRN Reason: Muscle Spasms Multivitamin/Iron/Folic Acid [Centrum Women Tablet] 1 each PO DAILY Calcium Carbonate [Calcium] 1,200 mg PO DAILY Acetaminophen 325 mg [Tylenol 325 mg] 650 mg PO Q4HPRN PRN PRN Reason: Pain And/Or Fever Tramadol HCl 50 mg [Ultram 50 mg] 50 mg PO DAILY PRN PRN PRN Reason: Pain Changed Potassium Gluconate 2 tab PO DAILY #60 tablet Discontinued Ceftriaxone 2 GM/50 ML PREMIX* [ROCEPHIN 2 Gm-D5w 50ML BAG] 2 gm IV HS Follow up with: ULISSES MOCK [Primary Care Provider] -
[2020-08-03] MEDS ORDERED: NON-FORMULARY ITEM (Rivaroxaban [Xarelto] 20 MG) PO SCH (18:00)
[2020-08-03] MEDS ORDERED: XARELTO 10 MG TABLET PO SCH (18:00)
[2020-08-03] MEDS ORDERED: CEFTRIAXONE IV SCH (22:00)
[2020-08-03] MEDS ORDERED: Ditropan 5 MG PO SCH (22:00)
== END 2020-08-03 15:08 ==
LOC: ED 15:45 → MED SURG 20:54
PROVIDERS: ADMIT Family Medicine; ATTEND Family Medicine
DX: E87.6 Hypokalemia (principal); R41.82 Altered mental status, unspecified; I50.9 Heart failure, unspecified; N39.0 Urinary tract infection, site not specified; E11.22 Type 2 diabetes mellitus with diabetic chronic kidney disease; N18.2 Chronic kidney disease, stage 2 (mild); I13.0 Hypertensive heart and chronic kidney disease with heart failure and stage 1 through stage 4 chronic kidney disease, or unspecified chronic kidney disease; I48.91 Unspecified atrial fibrillation; Z79.899 Other long term (current) drug therapy; Z79.4 Long term (current) use of insulin; E78.00 Pure hypercholesterolemia, unspecified; L89.152 Pressure ulcer of sacral region, stage 2
CPT/HCPCS: 36415; 70450; 71045; 80048; 80053; 80307; 81001; 82947; 83880; 84484; 85025; 85027; 87086; 93005; 93041; 93268; 94760; 96360; 96365; 96374; 99285; G0378; U0003; 87186; 96375; J0696; J1642; J1940; J3480; A9270-GY

== ENCOUNTER 2020-08-09 09:00 | Emergency (ER) | payer MEDICARE ==
[2020-08-09] MEDS ORDERED: DECADRON 10MG INJ. IV ONE (09:13)
[2020-08-09] MEDS ORDERED: Sodium Chloride 0.9% 1000 ML 1,000 ML IV SCH (09:15)
[2020-08-09 09:16] LABS: A-aADO2 571; ABG HEMOGLOBIN 10.8; ARTERIAL BLD GAS O2 SATURATION 92.9 % (95-100); ARTERIAL BLOOD GAS BASE EXCESS 3.6 (-2.0-2.0); ARTERIAL BLOOD GAS FIO2 100 %; ARTERIAL BLOOD GAS PCO2 59 mmHg (35-45); ARTERIAL BLOOD GAS PO2 68 mmHg (75-100); ARTERIAL BLOOD GAS pH 7.33 (7.35-7.45); CARBOXYHEMOGLOBIN 1.8 % THgb (0.0-6.9); HCO3- 31.1 (22-28); HGB O2 SAT 90.4 g/dF (94-100); Methhemoglobin 0.9 % (1.4-1.5); paO2 pAO1 0.11
[2020-08-09 09:17] LABS: ABG SITE RIGHT RADIAL; ALLEN TEST OK? YES
[2020-08-09] MEDS ORDERED: DECADRON 10MG INJ. ONE (09:28)
[2020-08-09] MEDS ORDERED: Sodium Chloride 0.9% 1000 ML 1,000 ML ONE (09:28)
--- NOTE | 2020-08-09 09:40 | ERPHSYRPT ---
- History of Present Illness Time Seen by Provider: 08/09/20 09:10 Source: patient Exam Limitations: no limitations Patient Subjective Stated Complaint: correction staff stated "I went to check on her this morning and she had agonal respiratoins, sating 79 %, her eyes were fixed and dilated, her family still has her as a full code, we tried to get them to update it but they refused. I tried to call her family and no one would answer.". Carrier Washer stated "she was unresponsive and we were going to tube her but when I put the IO in her, she came alive. She is still not responding but she has her eyes open." Triage Nursing Assessment: PT presented with eyes open, non responsive, cold to touch, with NRB on. PT SpO2 93% on NRB. PT slightly tachypneic, extremely shallow breathing with clear lung sounds but not moving much air. PT teeth removed and placed in a cup only upper teeth. Physician History: Patient is a 85-year-old female presents to our ED via EMS for evaluation of respiratory distress. Patient is a resident members [facility]. Staff found patient this morning with agonal respirations. Her saturation was reportedly 79%. EMS was notified. Upon EMS arrival patient was unresponsive. They were preparing to intubate. However they inserted an IO and patient awoke. Patient was maintaining her airway. Patient arrived here to [facility]. Patient was lethargic. Patient was in our ED several days ago for generalized weakness. She was found to be hypokalemic. Patient unable to provide information to this HPI. Per report patient has a history of a left total knee arthroplasty. The hardware became infected the hardware was subsequently removed and an antibiotic spacer was placed. Patient is currently on Eliquis. Patient responds to simple commands. She is maintaining her airway. Patient's family has been contacted. They want patient to be full code at this time. Timing/Duration: today Severity: moderate Modifying Factors: Improves With: nothing Associated Symptoms: denies symptoms Allergies/Adverse Reactions: dicyclomine [Dicyclomine] Allergy (Intermediate, Verified 08/02/20 21:33) NAUSEA, STOMACH PAIN Sulfa (Sulfonamide Antibiotics) [Sulfa(Sulfonamide Antibiotics)] Allergy (Unknown, Verified 08/02/20 21:33) atorvastatin [From Lipitor] Allergy (Verified 08/02/20 21:33) Ecfiglj-Hrl-Oss Reductase Inhibitor Allergy (Verified 08/02/20 21:33) Home Medications: Buspirone HCl [Buspar] 10 mg PO BID 07/29/19 [History] Glimepiride 2 mg [Amaryl 2 MG] 2 mg PO BID 07/29/19 [History] Loratadine 10 mg [Claritin 10 mg] 10 mg PO DAILY 07/29/19 [History] Metformin HCl 500 mg [Glucophage 500 MG] 500 mg PO TID 07/29/19 [History] Nitroglycerin 0.4 mg Tablet [Nitrostat 0.4 MG Tablet] 0.4 mg SL Q5MIN PRN MR X 3 PRN 07/29/19 [History] Solifenacin Succinate 5 mg PO DAILY 08/06/19 [History] Aspirin EC 81 mg [Ecotrin 81 mg] 81 mg PO DAILY 04/09/20 [History] Cholecalciferol (Vitamin D3) [Vitamin D3] 2,000 iu PO DAILY 04/09/20 [History] Cyanocobalamin 500 Mcg [Vitamin B-12 500 MCG] 1,000 mcg PO DAILY 04/09/20 [History] Ferrous Sulfate 325 mg [Feosol 325 mg] 325 mg PO DAILY 04/09/20 [History] Furosemide 80 mg PO DAILY 04/09/20 [History] Magnesium 250 mg PO DAILY 04/09/20 [History] Omeprazole 20 mg PO QAM 04/09/20 [History] Acetaminophen 325 mg [Tylenol 325 mg] 650 mg PO Q4HPRN PRN 08/02/20 [History] Calcium Carbonate [Calcium] 1,200 mg PO DAILY 08/02/20 [History] Cyclobenzaprine HCl [Flexeril] 5 mg PO Q8HPRN PRN 08/02/20 [History] Hydralazine HCl 100 mg PO TID 08/02/20 [History] Insulin Aspart [Novolog] 0 unit SQ QIDPRN PRN 08/02/20 [History] Isosorbide Mononitrate 30 mg [Imdur 30 MG] 30 mg PO DAILY 08/02/20 [History] Levothyroxine Sodium 75 Mcg [Synthroid 75 Mcg] 75 mcg PO DAILY 08/02/20 [History] Magnesium Hydroxide 30 ml [Milk of Magnesia 30 ml] 30 ml PO DAILY PRN PRN 08/02/20 [History] Metoprolol Tartrate 50 mg [Lopressor 50 MG] 100 mg PO BID 08/02/20 [History] Multivitamin/Iron/Folic Acid [Centrum Women Tablet] 1 each PO DAILY 08/02/20 [History] Rivaroxaban [Xarelto] 20 mg PO EVENING MEAL 08/02/20 [History] Tramadol HCl 50 mg [Ultram 50 mg] 50 mg PO DAILY PRN PRN 08/02/20 [History] Hx Tetanus, Diphtheria Vaccination/Date Given: Yes Hx Influenza Vaccination/Date Given: Yes Hx Pneumococcal Vaccination/Date Given: Yes Immunizations Up to Date: Yes Travel Risk - International Travel Have you traveled outside of the country in past 3 weeks: No - Coronavirus Screening Are you exhibiting any of the following symptoms?: No Close contact with a COVID-19 positive Pt in past 14-21 Days: Yes - Review of Systems All Other Systems: Unable due to condition - Past Medical History Pertinent Past Medical History: Yes Neurological History: No Pertinent History ENT History: Cataracts, Macular Degeneration Cardiac History: Angina, Congestive Heart Failure, High Cholesterol, Hypertension Respiratory History: No Pertinent History Endocrine Medical History: Diabetes Type II Musculoskeletal History: Other GI Medical History: Irritable Bowel History: No Pertinent History Psycho-Social History: Depression Female Reproductive Disorders: No Pertinent History Other Medical History: hearing loss wears hearing aides, rib fx - Past Surgical History Past Surgical History: Yes Neuro Surgical History: No Pertinent History Cardiac: No Pertinent History, Cardiac Catheterization Respiratory: No Pertinent History Gastrointestinal: Cholecystectomy, Exploratory Laparoscopy Genitourinary: No Pertinent History Musculoskeletal: Orthopedic Surgery, Other Female Surgical History: Tubal Ligation Other Surgical History: Surgery to left pinky finger-russ insertion. bladder tie up, hx of L hip fx repair. L knee replacement. rt hip replacement - Social History Smoking Status: Unknown if ever smoked Exposure to second hand smoke: (unknown) Drug Use: none Patient Lives Alone: No Significant Family History: no pertinent family hx - Nursing Vital Signs Nursing Vital Signs: Initial Vital Signs Pulse Rate 92 H 08/09/20 09:01 Respiratory Rate 24 08/09/20 09:01 Blood Pressure 118/56 08/09/20 09:01 O2 Sat by Pulse Oximetry 93 L 08/09/20 09:01 Pain Scale Pain Intensity 0 - Physical Exam General Appearance: moderate distress, lethargy Eye Exam: PERRL/EOMI, eyes nml inspection Ears, Nose, Throat Exam: normal ENT inspection, TMs normal, pharynx normal, moist mucous membranes Neck Exam: normal inspection, non-tender, supple, full range of motion Respiratory Exam: lungs clear, diminished breath sounds, No respiratory distress Cardiovascular Exam: regular rate/rhythm, normal heart sounds, normal peripheral pulses Gastrointestinal/Abdomen Exam: soft, normal bowel sounds, No tenderness, No mass Back Exam: normal inspection, normal range of motion, No CVA tenderness, No vertebral tenderness Extremity Exam: normal inspection, normal range of motion, pelvis stable Neurologic Exam: alert, oriented x 3, cooperative, normal mood/affect, sensation nml, No motor deficits Skin Exam: normal color, warm, dry, other (Extremity cold to touch.), No rash Lymphatic Exam: No adenopathy SpO2 Interpretation: hypoxic, O2 applied, airway management int. SpO2: 93 O2 Delivery: Oxymask - Course Nursing assessment & vital signs reviewed: Yes EKG Interpreted by Me: RATE (95), A-fib, NORMAL AXIS, NORMAL INTERVALS - Radiology Exams Chest X-ray Interpretation: Teleradiologist Report (Significant bilateral pleural effusions with bibasilar compressive atelectasis obscuring the cardiac silhouette. No new cardiopulmonary abnormalities. Right arm PICC line has been removed.) Ordered Tests: Active Orders 24 hr Category Date Time Status Associate Research Scientist STAT Care 08/09/20 09:09 Active EKG-ER Only STAT Care 08/09/20 09:08 Active IV Insertion STAT Care 08/09/20 09:08 Active Pulse Oximetry (ED) STAT Care 08/09/20 09:08 Active CHEST 1 VIEW (PORTABLE) Stat Exams 08/09/20 09:37 Completed HEAD WITHOUT CONTRAST [CT] Stat Exams 08/09/20 11:58 Completed ABG [ARTERIAL BLOOD GASES] Stat Lab 08/09/20 09:12 Completed ABG [ARTERIAL BLOOD GASES] Urgent Lab 08/09/20 10:35 Completed ABG [ARTERIAL BLOOD GASES] Urgent Lab 08/09/20 12:20 Completed BLOOD CULTURE Stat Lab 08/09/20 10:20 Received CBC W DIFF Stat Lab 08/09/20 10:20 Completed CMP Stat Lab 08/09/20 10:20 Completed ETHYL ALCOHOL Stat Lab 08/09/20 10:20 Completed Lactic Acid Stat Lab 08/09/20 09:12 Completed Lactic Acid Stat Lab 08/09/20 11:18 Received Lactic Acid Urgent Lab 08/09/20 10:42 Completed MAGNESIUM Stat Lab 08/09/20 10:20 Completed Manual Differential NC Stat Lab 08/09/20 10:20 Completed NT PRO BNP Stat Lab 08/09/20 10:20 Completed TROPONIN Q3H Lab 08/09/20 10:20 Completed TROPONIN Q3H Lab 08/09/20 12:15 Completed TROPONIN Q3H Lab 08/09/20 15:15 Ordered TROPONIN Q3H Lab 08/09/20 18:15 Ordered TROPONIN Q3H Lab 08/09/20 21:15 Ordered TSH [TSH, 3RD Generation] Stat Lab 08/09/20 10:30 Completed UA W/RFX UR CULTURE Stat Lab 08/09/20 10:27 Completed Urine Triage Profile Stat Lab 08/09/20 10:27 Completed BiPap/CPAP STAT RT 08/09/20 09:23 Active Medication Summary Generic Name Dose Route Start Last Admin Trade Name Freq PRN Reason Stop Dose Admin Sodium Chloride 1,000 mls @ 50 mls/hr 08/09/20 09:15 08/09/20 09:34 Sodium Chloride 0.9% 1000 Ml IV 09/08/20 09:14 50 mls/hr .Q20H NAE Administration Discontinued Medications Generic Name Dose Route Start Last Admin Trade Name Freq PRN Reason Stop Dose Admin Dexamethasone Sodium Phosphate 6 mg 08/09/20 09:13 08/09/20 09:35 Decadron 10mg Inj. IV 08/09/20 09:14 6 mg STAT ONE Administration Dexamethasone Sodium Phosphate Confirm 08/09/20 09:28 Decadron 10mg Inj. Administered 08/09/20 09:29 Dose 10 mg .ROUTE .STK-MED ONE Furosemide 40 mg 08/09/20 11:01 08/09/20 11:29 Lasix 40 Mg/4 Ml IV 08/09/20 11:02 40 mg STAT ONE Administration Furosemide Confirm 08/09/20 11:28 Lasix 40 Mg/4 Ml Administered 08/09/20 11:29 Dose 40 mg .ROUTE .STK-MED ONE Lab/Rad Data: Laboratory Result Diagrams 08/09/20 10:20 08/09/20 10:20 Laboratory Results 08/09/20 08/09/20 08/09/20 Range/Units 12:20 12:15 10:42 WBC (4.0-10.5) K/mm3 RBC (4.1-5.4) M/mm3 Hgb (12.0-16.0) gm/dl Hct (35-47) % MCV (78-100) fl MCH (26-32) pg MCHC (32-36) g/dl RDW (11.5-14.0) % Plt Count (150-450) K/mm3 MPV (7.5-11.0) fl Segmented Neutrophils (36.0-66.0) % Lymphocytes (Manual) (24-44) % Monocytes (Manual) (0.0-12.0) % Hypochromia Platelet Estimate (NORMAL) RBC Morphology Puncture Site RIGHT BRACHIAL pCO2 55 H (35-45) mmHg pO2 64 L (75-100) mmHg Base Excess 6.7 H (-2.0-2.0) O2 Saturation 90.2 L (94-100) g/dF ABG pH 7.39 (7.35-7.45) ABG HCO3 33.3 H* (22-28) ABG O2 Sat (Measured) 93.1 L (95-100) % Loco Test NOT APPLICABLE A-a Gradient 224 a/A Ratio 0.22 Hemoglobin 10.5 Carboxyhemoglobin 2.5 (0.0-6.9) % THgb Methemoglobin 0.7 L (1.4-1.5) % Potassium 4.0 (3.5-5.1) Temperature 37.0 C POC O2 Flow Rate 50 % Sodium (137-145) mmol/L Chloride (98-107) mmol/L Carbon Dioxide (22-30) mmol/L Anion Gap (5-15) MEQ/L BUN (7-17) mg/dL Creatinine (0.52-1.04) mg/dL Estimated GFR ML/MIN Glucose (74-106) mg/dL Lactic Acid 2.5 H (0.4-2.0) Calcium (8.4-10.2) mg/dL Magnesium (1.6-2.3) mg/dL Total Bilirubin (0.2-1.3) mg/dL AST (14-36) U/L ALT (0-35) U/L Alkaline Phosphatase (38-126) U/L Troponin I 0.120 H* (0.000-0.034) ng/mL NT-Pro-B Natriuret Pep (0-1800) pg/mL Serum Total Protein (6.3-8.2) g/dL Albumin (3.5-5.0) g/dL TSH 3rd Generation (0.47-4.68) mIU/L Urine Color (YELLOW) Urine Appearance (CLEAR) Urine pH (5-6) Ur Specific [place] (1.005-1.025) Urine Protein (Negative) Urine Ketones (NEGATIVE) Urine Blood (0-5) Jayme/ul Urine Nitrite (NEGATIVE) Urine Bilirubin (NEGATIVE) Urine Urobilinogen (0-1) mg/dL Ur Leukocyte Esterase (NEGATIVE) Urine WBC (Auto) (0-5) /HPF Urine RBC (Auto) (0-2) /HPF U Hyaline Cast (Auto) (0-2) /LPF U Epithel Cells (Auto) (FEW) /HPF Urine Bacteria (Auto) (NEGATIVE) /HPF Urine Mucus (Auto) (NEGATIVE) /HPF Urine Culture Reflexed (NO) Urine Glucose (NEGATIVE) mg/dL Urine Opiates Level (NEGATIVE) Ur Methadone (NEGATIVE) Urine Barbiturates (NEGATIVE) Ur Phencyclidine (PCP) (NEGATIVE) Urine Amphetamine (NEGATIVE) U Benzodiazepine Level (NEGATIVE) Urine Cocaine (NEGATIVE) Urine Marijuana (THC) (NEGATIVE) Ethyl Alcohol (0-10) mg/dL 08/09/20 08/09/20 08/09/20 Range/Units 10:35 10:30 10:27 WBC (4.0-10.5) K/mm3 RBC (4.1-5.4) M/mm3 Hgb (12.0-16.0) gm/dl Hct (35-47) % MCV (78-100) fl MCH (26-32) pg MCHC (32-36) g/dl RDW (11.5-14.0) % Plt Count (150-450) K/mm3 MPV (7.5-11.0) fl Segmented Neutrophils (36.0-66.0) % Lymphocytes (Manual) (24-44) % Monocytes (Manual) (0.0-12.0) % Hypochromia Platelet Estimate (NORMAL) RBC Morphology Puncture Site LEFT RADIAL pCO2 52 H (35-45) mmHg pO2 39 L* (75-100) mmHg Base Excess 7.6 H (-2.0-2.0) O2 Saturation 72.2 L (94-100) g/dF ABG pH 7.42 (7.35-7.45) ABG HCO3 33.7 H* (22-28) ABG O2 Sat (Measured) 73.6 L (95-100) % Loco Test YES A-a Gradient 46 a/A Ratio 0.46 Hemoglobin 10.4 Carboxyhemoglobin 1.6 (0.0-6.9) % THgb Methemoglobin 0.2 L (1.4-1.5) % Potassium 4.2 (3.5-5.1) Temperature 37.0 C POC O2 Flow Rate 21 % Sodium (137-145) mmol/L Chloride (98-107) mmol/L Carbon Dioxide (22-30) mmol/L Anion Gap (5-15) MEQ/L BUN (7-17) mg/dL Creatinine (0.52-1.04) mg/dL Estimated GFR ML/MIN Glucose (74-106) mg/dL Lactic Acid (0.4-2.0) Calcium (8.4-10.2) mg/dL Magnesium (1.6-2.3) mg/dL Total Bilirubin (0.2-1.3) mg/dL AST (14-36) U/L ALT (0-35) U/L Alkaline Phosphatase (38-126) U/L Troponin I (0.000-0.034) ng/mL NT-Pro-B Natriuret Pep (0-1800) pg/mL Serum Total Protein (6.3-8.2) g/dL Albumin (3.5-5.0) g/dL TSH 3rd Generation 1.030 (0.47-4.68) mIU/L Urine Color (YELLOW) Urine Appearance (CLEAR) Urine pH (5-6) Ur Specific [place] (1.005-1.025) Urine Protein (Negative) Urine Ketones (NEGATIVE) Urine Blood (0-5) Jayme/ul Urine Nitrite (NEGATIVE) Urine Bilirubin (NEGATIVE) Urine Urobilinogen (0-1) mg/dL Ur Leukocyte Esterase (NEGATIVE) Urine WBC (Auto) (0-5) /HPF Urine RBC (Auto) (0-2) /HPF U Hyaline Cast (Auto) (0-2) /LPF U Epithel Cells (Auto) (FEW) /HPF Urine Bacteria (Auto) (NEGATIVE) /HPF Urine Mucus (Auto) (NEGATIVE) /HPF Urine Culture Reflexed (NO) Urine Glucose (NEGATIVE) mg/dL Urine Opiates Level NEGATIVE (NEGATIVE) Ur Methadone NEGATIVE (NEGATIVE) Urine Barbiturates NEGATIVE (NEGATIVE) Ur Phencyclidine (PCP) NEGATIVE (NEGATIVE) Urine Amphetamine NEGATIVE (NEGATIVE) U Benzodiazepine Level NEGATIVE (NEGATIVE) Urine Cocaine NEGATIVE (NEGATIVE) Urine Marijuana (THC) NEGATIVE (NEGATIVE) Ethyl Alcohol (0-10) mg/dL 08/09/20 08/09/20 08/09/20 Range/Units 10:27 10:20 10:20 WBC (4.0-10.5) K/mm3 RBC (4.1-5.4) M/mm3 Hgb (12.0-16.0) gm/dl Hct (35-47) % MCV (78-100) fl MCH (26-32) pg MCHC (32-36) g/dl RDW (11.5-14.0) % Plt Count (150-450) K/mm3 MPV (7.5-11.0) fl Segmented Neutrophils (36.0-66.0) % Lymphocytes (Manual) (24-44) % Monocytes (Manual) (0.0-12.0) % Hypochromia Platelet Estimate (NORMAL) RBC Morphology Puncture Site pCO2 (35-45) mmHg pO2 (75-100) mmHg Base Excess (-2.0-2.0) O2 Saturation (94-100) g/dF ABG pH (7.35-7.45) ABG HCO3 (22-28) ABG O2 Sat (Measured) (95-100) % Loco Test A-a Gradient a/A Ratio Hemoglobin Carboxyhemoglobin (0.0-6.9) % THgb Methemoglobin (1.4-1.5) % Potassium 4.8 (3.5-5.1) Temperature C POC O2 Flow Rate % Sodium 139 (137-145) mmol/L Chloride 96 L (98-107) mmol/L Carbon Dioxide 31 H (22-30) mmol/L Anion Gap 16.5 H (5-15) MEQ/L BUN 43 H (7-17) mg/dL Creatinine 0.96 (0.52-1.04) mg/dL Estimated GFR 58.7 ML/MIN Glucose 133 H (74-106) mg/dL Lactic Acid (0.4-2.0) Calcium 8.7 (8.4-10.2) mg/dL Magnesium 2.2 (1.6-2.3) mg/dL Total Bilirubin 1.50 H (0.2-1.3) mg/dL AST 96 H (14-36) U/L ALT 35 (0-35) U/L Alkaline Phosphatase 115 (38-126) U/L Troponin I 0.116 H* (0.000-0.034) ng/mL NT-Pro-B Natriuret Pep 35344 H (0-1800) pg/mL Serum Total Protein 6.9 (6.3-8.2) g/dL Albumin 3.7 (3.5-5.0) g/dL TSH 3rd Generation (0.47-4.68) mIU/L Urine Color NASH (YELLOW) Urine Appearance CLEAR (CLEAR) Urine pH 5.0 (5-6) Ur Specific [place] 1.014 (1.005-1.025) Urine Protein NEGATIVE (Negative) Urine Ketones TRACE (NEGATIVE) Urine Blood NEGATIVE (0-5) Jayme/ul Urine Nitrite NEGATIVE (NEGATIVE) Urine Bilirubin NEGATIVE (NEGATIVE) Urine Urobilinogen NEGATIVE (0-1) mg/dL Ur Leukocyte Esterase NEGATIVE (NEGATIVE) Urine WBC (Auto) NONE (0-5) /HPF Urine RBC (Auto) NONE (0-2) /HPF U Hyaline Cast (Auto) 6-10 (0-2) /LPF U Epithel Cells (Auto) NONE (FEW) /HPF Urine Bacteria (Auto) NONE (NEGATIVE) /HPF Urine Mucus (Auto) SLIGHT (NEGATIVE) /HPF Urine Culture Reflexed NO (NO) Urine Glucose NEGATIVE (NEGATIVE) mg/dL Urine Opiates Level (NEGATIVE) Ur Methadone (NEGATIVE) Urine Barbiturates (NEGATIVE) Ur Phencyclidine (PCP) (NEGATIVE) Urine Amphetamine (NEGATIVE) U Benzodiazepine Level (NEGATIVE) Urine Cocaine (NEGATIVE) Urine Marijuana (THC) (NEGATIVE) Ethyl Alcohol < 10 (0-10) mg/dL 08/09/20 08/09/20 08/09/20 Range/Units 10:20 09:12 09:12 WBC 10.5 (4.0-10.5) K/mm3 RBC 4.10 (4.1-5.4) M/mm3 Hgb 10.9 L (12.0-16.0) gm/dl Hct 38.3 (35-47) % MCV 93.4 (78-100) fl MCH 26.6 (26-32) pg MCHC 28.5 L (32-36) g/dl RDW 21.8 H (11.5-14.0) % Plt Count 234 (150-450) K/mm3 MPV 10.8 (7.5-11.0) fl Segmented Neutrophils 89 H (36.0-66.0) % Lymphocytes (Manual) 8 L (24-44) % Monocytes (Manual) 3 (0.0-12.0) % Hypochromia 1+ Platelet Estimate NORMAL (NORMAL) RBC Morphology ABNORMAL Puncture Site RIGHT RADIAL pCO2 59 H (35-45) mmHg pO2 68 L (75-100) mmHg Base Excess 3.6 H (-2.0-2.0) O2 Saturation 90.4 L (94-100) g/dF ABG pH 7.33 L (7.35-7.45) ABG HCO3 31.1 H* (22-28) ABG O2 Sat (Measured) 92.9 L (95-100) % Loco Test YES A-a Gradient 571 a/A Ratio 0.11 Hemoglobin 10.8 Carboxyhemoglobin 1.8 (0.0-6.9) % THgb Methemoglobin 0.9 L (1.4-1.5) % Potassium 4.0 (3.5-5.1) Temperature 37.0 C POC O2 Flow Rate 100 % Sodium (137-145) mmol/L Chloride (98-107) mmol/L Carbon Dioxide (22-30) mmol/L Anion Gap (5-15) MEQ/L BUN (7-17) mg/dL Creatinine (0.52-1.04) mg/dL Estimated GFR ML/MIN Glucose (74-106) mg/dL Lactic Acid 4.7 H (0.4-2.0) Calcium (8.4-10.2) mg/dL Magnesium (1.6-2.3) mg/dL Total Bilirubin (0.2-1.3) mg/dL AST (14-36) U/L ALT (0-35) U/L Alkaline Phosphatase (38-126) U/L Troponin I (0.000-0.034) ng/mL NT-Pro-B Natriuret Pep (0-1800) pg/mL Serum Total Protein (6.3-8.2) g/dL Albumin (3.5-5.0) g/dL TSH 3rd Generation (0.47-4.68) mIU/L Urine Color (YELLOW) Urine Appearance (CLEAR) Urine pH (5-6) Ur Specific [place] (1.005-1.025) Urine Protein (Negative) Urine Ketones (NEGATIVE) Urine Blood (0-5) Jayme/ul Urine Nitrite (NEGATIVE) Urine Bilirubin (NEGATIVE) Urine Urobilinogen (0-1) mg/dL Ur Leukocyte Esterase (NEGATIVE) Urine WBC (Auto) (0-5) /HPF Urine RBC (Auto) (0-2) /HPF U Hyaline Cast (Auto) (0-2) /LPF U Epithel Cells (Auto) (FEW) /HPF Urine Bacteria (Auto) (NEGATIVE) /HPF Urine Mucus (Auto) (NEGATIVE) /HPF Urine Culture Reflexed (NO) Urine Glucose (NEGATIVE) mg/dL Urine Opiates Level (NEGATIVE) Ur Methadone (NEGATIVE) Urine Barbiturates (NEGATIVE) Ur Phencyclidine (PCP) (NEGATIVE) Urine Amphetamine (NEGATIVE) U Benzodiazepine Level (NEGATIVE) Urine Cocaine (NEGATIVE) Urine Marijuana (THC) (NEGATIVE) Ethyl Alcohol (0-10) mg/dL - Progress Progress: improved Progress Note: 08/09/20 13:37 Patient reassessed. Clinically she is improving. Patient now more interactive and answering questions appropriately ABG gases are improving. Troponin elevated. A. fib on EKG. No STEMI. Chest x-ray shows pleural effusions which was present during her last visit. Lactic acid improved from 4.7-2.7. BNP 21,000. Lasix administered. Patient currently on Eliquis. Has not taken her Eliquis today by Dr. Fortune feels we should hold off on heparin once pill cardiology evaluates patient. Plan of care discussed with patient and her son who is at bedside. They agree to transfer to [facility] for further evaluation and treatment. Counseled pt/family regarding: lab results, diagnosis, rad results - Departure Departure Disposition: Transfer Clinical Impression: Respiratory distress, Lactic acidosis, Altered mental status, Atrial fibrillation, Pleural effusion, Hypoxia, High anion gap metabolic acidosis Condition: Stable Critical Care Time: No Referrals: ULISSES MOCK [Primary Care Provider] -
--- NOTE | 2020-08-09 09:45 | XRAY ---
Indication: Short of breath and cough. Suspect Covid 19. Comparison: August 02, 2020. Portable chest unchanged again demonstrating moderate/significant bilateral pleural effusions with bibasilar compressive atelectasis obscuring the cardiac silhouette. No new cardiopulmonary abnormalities. Right arm PICC line has been removed.
[2020-08-09 10:22] LABS: Hematocrit 38.3 % (35-47); Hemoglobin 10.9 gm/dl (12.0-16.0); Mean Cell Volume 93.4 fl (78-100); Mean Corpuscular Hemoglobin 26.6 pg (26-32); Mean Corpuscular Hgb Concent. 28.5 g/dl (32-36); Mean Platelet Volume 10.8 fl (7.5-11.0); Platelet Count 234 K/mm3 (150-450); Red Cell Distribution Width 21.8 % (11.5-14.0); White Blood Count 10.5 K/mm3 (4.0-10.5)
[2020-08-09 10:44] LABS: A-aADO2 46; ABG HEMOGLOBIN 10.4; ABG POTASSIUM 4.2 (3.5-5.1); ABG SITE LEFT RADIAL; ALLEN TEST OK? YES; ARTERIAL BLD GAS O2 SATURATION 73.6 % (95-100); ARTERIAL BLOOD GAS BASE EXCESS 7.6 (-2.0-2.0); ARTERIAL BLOOD GAS FIO2 21 %; ARTERIAL BLOOD GAS PCO2 52 mmHg (35-45); ARTERIAL BLOOD GAS PO2 39 mmHg (75-100); CARBOXYHEMOGLOBIN 1.6 % THgb (0.0-6.9); HCO3- 33.7 (22-28); HGB O2 SAT 72.2 g/dF (94-100); Methhemoglobin 0.2 % (1.4-1.5); paO2 pAO1 0.46
[2020-08-09 10:49] LABS: ARTERIAL BLOOD GAS pH 7.42 (7.35-7.45)
[2020-08-09 10:50] LABS: ALBUMIN 3.7 g/dL (3.5-5.0); ALKALINE PHOSPHATASE 115 U/L (38-126); ANION GAP 16.5 MEQ/L (5-15); BLOOD UREA NITROGEN 43 mg/dL (7-17); CHLORIDE 96 mmol/L (98-107); Calcium 8.7 mg/dL (8.4-10.2); Carbon Dioxide 31 mmol/L (22-30); Creatinine 1 0.96 mg/dL (0.52-1.04); EST GLOMERULAR FILTRATION RATE 58.7 ML/MIN; ETHYL ALCOHOL < 10 mg/dL (0-10); Glucose 133 mg/dL (74-106); MAGNESIUM 2.2 mg/dL (1.6-2.3); NT PRO BNP 21900 pg/mL (0-1800); Potassium 4.8 mmol/L (3.5-5.1); SGOT/AST 96 U/L (14-36); SGPT/ALT 35 U/L (0-35); SODIUM 139 mmol/L (137-145); Total Protein 6.9 g/dL (6.3-8.2)
[2020-08-09 10:54] LABS: Hypochromia 1+; Lymphocytes 8 % (24-44); Monocyte 3 % (0.0-12.0); Neutrophils 89 % (36.0-66.0); Platelet Estimate NORMAL (NORMAL); Total Cells Counted 100
[2020-08-09] MEDS ORDERED: Lasix 40 MG/4 ML IV ONE (11:01)
[2020-08-09] MEDS ORDERED: Lasix 40 MG/4 ML ONE (11:28)
--- NOTE | 2020-08-09 12:08 | XRAY ---
Indication: Altered mental status. Multiple contiguous axial images obtained through the head without contrast. Comparison: August 02, 2020. Several images are degraded by motion artifact. Grossly stable age-appropriate global atrophy and mild periventricular degenerative micro-ischemia. No acute intracranial hemorrhage, abnormal extra-axial fluid collection, or mass effect. Fourth ventricle is midline without hydrocephalus. Bony calvarium grossly intact. Visualized paranasal sinuses and mastoid air cells are clear. Impression: Motion artifact. Grossly nonacute senile brain.
[2020-08-09 12:12] LABS: Appearance CLEAR (CLEAR); Bilirubin NEGATIVE (NEGATIVE); Blood NEGATIVE Ery/ul (0-5); Glucose NEGATIVE (NEGATIVE); Ketones TRACE (NEGATIVE); Leukocyte Esterase NEGATIVE (NEGATIVE); Mucus SLIGHT /HPF (NEGATIVE); Nitrite NEGATIVE (NEGATIVE); Protein,Urine Dip NEGATIVE (Negative); Specific Gravity 1.014 (1.005-1.025); Urobilinogen NEGATIVE mg/dL (0-1)
[2020-08-09 12:27] LABS: Amphetamine,Urine NEGATIVE (NEGATIVE); Barbiturate,Urine NEGATIVE (NEGATIVE); Benzodiazepine,Urine NEGATIVE (NEGATIVE); Cocaine,Urine NEGATIVE (NEGATIVE); Methadone,Urine NEGATIVE (NEGATIVE); Opiate,Urine NEGATIVE (NEGATIVE); PCP,Urine NEGATIVE (NEGATIVE); THC,Urine NEGATIVE (NEGATIVE)
[2020-08-09 13:04] VITALS: BP 128/63; PULSE 88
[2020-08-09 13:05] LABS: A-aADO2 224; ABG HEMOGLOBIN 10.5; ABG SITE RIGHT BRACHIAL; ARTERIAL BLD GAS O2 SATURATION 93.1 % (95-100); ARTERIAL BLOOD GAS BASE EXCESS 6.7 (-2.0-2.0); ARTERIAL BLOOD GAS FIO2 50 %; ARTERIAL BLOOD GAS PCO2 55 mmHg (35-45); ARTERIAL BLOOD GAS PO2 64 mmHg (75-100); ARTERIAL BLOOD GAS pH 7.39 (7.35-7.45); CARBOXYHEMOGLOBIN 2.5 % THgb (0.0-6.9); HCO3- 33.3 (22-28); HGB O2 SAT 90.2 g/dF (94-100); Methhemoglobin 0.7 % (1.4-1.5); paO2 pAO1 0.22
[2020-08-09 13:40] VITALS: O2SAT 93
== END 2020-08-09 13:56 | disposition short-term general hospital (02) ==
LOC: ED 09:00
DX: R06.03 Acute respiratory distress (principal); E87.2 Acidosis; R41.82 Altered mental status, unspecified; I48.91 Unspecified atrial fibrillation; J90 Pleural effusion, not elsewhere classified; R09.02 Hypoxemia
CPT/HCPCS: 36000; 36415; 36600; 70450; 71045; 80053; 80307; 81001; 82375; 82803; 83605; 83735; 83880; 84443; 84484; 85025; 87040; 93005; 93041; 94002; 94760; 96374; 96375; 99285; G0480; J1100; J1940